=== PATIENT | female | born 1980 | race Caucasian/White ===

== ENCOUNTER 2020-07-08 14:39 | Outpatient (REF) | payer OTHER, SELFPAY ==
--- NOTE | 2020-07-08 14:46 | US_ITS ---
EXAMINATION: US THYROID CLINICAL INFORMATION: Lump of anterior neck. COMPARISON: None TECHNIQUE: Linear transducer maxwell-scale and color Doppler examination with attention to the region of the thyroid. FINDINGS: SIZE: Measurements of the thyroid lobes and nodules are given in sagittal, anteroposterior and transverse dimensions respectively. Right Thyroid Lobe: 5.7 x 1.5 x 1.9 cm, volume 8.7 mL. Parenchyma: The gland echotexture is homogeneous. Thyroid vascularity is increased. Left Thyroid Lobe: 4.7 x 1.5 x 1.7 cm, volume 6.5 mL. Parenchyma: The gland echotexture is homogeneous. Thyroid vascularity is increased. Isthmus: 1.5 cm in maximum AP dimension. RIGHT THYROID LOBE: There is 1 nodule seen. 1. Location: Middle. Size: 0.4 x 0.4 x 0.3 cm. Nodule characteristics: Heterogeneously hypoechoic with smooth margins. No internal calcification. Intranodular flow noted. ISTHMUS: There is 1 nodule seen. 1. Location: Central/left. Size: 3.3 x 1.9 x 3.0 cm. Nodule characteristics: Heterogeneously with smooth margins and hypoechoic rind. No internal calcification. Intranodular flow present. LEFT THYROID LOBE: No nodules. NODES: No lymphadenopathy is seen in the tissue surrounding the thyroid gland. US/US thyroid IMPRESSION: Dominant nodule in the thyroid isthmus. This is appropriate for fine-needle aspiration tissue sampling. Increased thyroid vascularity. Correlate with thyroid function..
== END 2020-07-08 14:40 | disposition home or self-care (01) ==
LOC: HO.HMGCX 14:39
PROVIDERS: PCP Internal Medicine; Visit Provider Internal Medicine
DX: R22.1 Localized swelling, mass and lump, neck (principal)
CPT/HCPCS: 76536

== ENCOUNTER → 2023-05-16 13:37 | Outpatient (BNVA) | payer OTHER, SELFPAY | PROVIDERS: PCP Internal Medicine; Visit Provider Surgery ==

== ENCOUNTER 2023-05-18 08:09 | Outpatient (AMB) | payer OTHER, SELFPAY ==
--- NOTE | 2023-05-18 10:29 | MHC.OFFVISWM ---
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 Allergies shellfish derived Adverse Reaction (Severe, Verified 05/18/23 10:29) Facial Swelling Sulfa (Sulfonamide Antibiotics) Adverse Reaction (Intermediate, Verified 05/18/23 10:29) Itching Medication List - Last Reconciled 05/18/23 by Artur Levy MD candesartan 16 mg PO DAILY hydrochlorothiazide 12.5 mg PO DAILY levothyroxine 150 mcg PO DAILY 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 HPI Details Start time: 10.09am, End time: 11.09am ?I spent 50 minutes speaking with the patient on the phone plus an additional 10 minutes reviewing and updating records for a total of 60 minutes HPI Comments History of Present Illness Details Previous weight loss efforts: Atkins, Keto, Hypnosis, RD Wakes up: 6am, Sleeps: 9pm Breakfast: skips Lunch: 11am-12pm (meat) Dinner: 4-5pm (meat, rice, beans, plantains) Snacks: occasionally ice cream after dinner Exercise: walking occasionally Fluids: Coffee: none, tea: rarely, soda: none, juice: rarely, ETOH: 2-3/month PFSH Medical History (Updated 05/18/23 @ 10:34 by Artur Levy MD) Primary thyroid cancer Hypothyroidism Hypertension Surgical History (Updated 05/18/23 @ 10:35 by Artur Levy MD) H/O total thyroidectomy History of surgical removal of ganglion cyst Hx of colonoscopy Hx of cholecystectomy Hx of section Family History (Updated 05/18/23 @ 08:06 by Noris Gil CMA) Mother Sleep apnea Hypertension Hypothyroid Father Hypertension Social History (Updated 05/18/23 @ 08:07 by Noris Gil CMA) Alcohol intake: current Alcohol intake frequency: holidays/special occasions only Patient Tobacco Use Status: Never used Tobacco Assessment & Plan Assessment & Plan (1) Obesity: Code(s): E66.9 - Obesity, unspecified Plan: 1.? Plan for lap sleeve gastrectomy. If diaphragmatic or ventral hernias are present at time of surgery, these will be repaired laparoscopically as well. Risks and complications were discussed in detail including possible conversion to an open procedure, anastomotic leak, bleeding requiring transfusion, small bowel obstruction, , DVT and pulmonary embolism, cardiac, or pulmonary complications, as moth exterminator complications such as anastomotic ulcer, insufficient weight loss and vitamin deficiencies. I emphasized the importance of close follow-up, adherence to instructions and good communication. 2. Nutritional counseling. Start with 2 ISOPURE INFUSIONS protein shakes (buy at [employer]) shakes (HALF scoop EACH in 8oz water) at 7am-9am and 10am-12pm, 2 Zone Perfect protein bas (Zone Perfect protein bars, buy at [employer], [employer], [employer], or [employer]) at 1pm-3pm and 4pm-6pm, dinner at 7pm (8 forks of protein and 8 forks of salad/vegetables). Meal to include lean meat (beef, fish, pork, turkey, chicken), or macedonian yogurt, or egg whites, or beans with a salad with olive oil and fruits (berries, pears, apples, kiwi). Avoid salt, breads, potatoes, rice, pasta, desserts. 3. Each shake would be drunk slowly, like coffee in a period of 2 hours. 4. Cut each bar in 4 pieces and eat each piece in 30min ?to make each bar last 2 hours. 5. I emphasized the importance of measuring accurately the food portion and measure it when serving the food in plate 6. The meal portions include 8 full-size forks of meat and 8 full-size forks of salad. You always eat the meat portion but you can replace up to 4 forks for salad/vegetables with rice, potatoes or pasta, or a fruit ?if you like. The less you do it the better weight loss will be. 7. One full-size fork is what it can be scooped on the fork without falling aside and not what can be bit with the fork. Use regular forks like those you find in a typical restaurant. 8.? Please send me weight measurements as soon as possible and then once a week. Always include your diet and exercise plan. 9. Start walking outside daily, tracking calories with a goal of 300 calories per day, daily. Goal is to burn 2000 calories per week on exercise, which means either 300 calories daily, or 400 calories 5 days per week, or 500 calories 4 days per week, or 650 calories 3 days per week. 10. Alternatively purchase a stationary bike, elliptical or treadmill at home that can track calories. Let me know if you do so I can give you an exercise plan. 11.?It is important of avoiding and for at least 18 months postoperatively and has been discussed at the infosession. 12. Goal is to lose at least 1.5-2lbs per week 13. Goal to lose 10% of your weight before surgery, which is about 21lbs. Ultimate weight goal: 189lbs before surgery 14. Please follow the diet plan exactly without any change. If you don't like something about the plan or you feel hungry you need to communicate with me so I can help you revise the plan. You should not change the plan yourself. (2) BMI 38.0-38.9,adult: Code(s): Z68.38 - Body mass index [BMI] 38.0-38.9, adult (3) Hypertension: Code(s): I10 - Essential (primary) hypertension (4) Hypothyroidism: Code(s): E03.9 - Hypothyroidism, unspecified Orders: Orders Lipid Panel Today E03.9 - Hypothyroidism, unspecified, E66.9 - Obesity, unspecified, I10 - Essential (primary) hypertension, Z68.38 - Body mass index [BMI] 38.0-38.9, adult Complete Blood Count Auto Diff Today E03.9 - Hypothyroidism, unspecified, E66.9 - Obesity, unspecified, I10 - Essential (primary) hypertension, Z68.38 - Body mass index [BMI] 38.0-38.9, adult Zinc Today E03.9 - Hypothyroidism, unspecified, E66.9 - Obesity, unspecified, I10 - Essential (primary) hypertension, Z68.38 - Body mass index [BMI] 38.0-38.9, adult Vitamin A Today E03.9 - Hypothyroidism, unspecified, E66.9 - Obesity, unspecified, I10 - Essential (primary) hypertension, Z68.38 - Body mass index [BMI] 38.0-38.9, adult C Reactive Protein Today E03.9 - Hypothyroidism, unspecified, E66.9 - Obesity, unspecified, I10 - Essential (primary) hypertension, Z68.38 - Body mass index [BMI] 38.0-38.9, adult Ferritin Today E03.9 - Hypothyroidism, unspecified, E66.9 - Obesity, unspecified, I10 - Essential (primary) hypertension, Z68.38 - Body mass index [BMI] 38.0-38.9, adult FL upper GI w air Today E03.9 - Hypothyroidism, unspecified, E66.9 - Obesity, unspecified, I10 - Essential (primary) hypertension, Z68.38 - Body mass index [BMI] 38.0-38.9, adult Insulin Today E03.9 - Hypothyroidism, unspecified, E66.9 - Obesity, unspecified, I10 - Essential (primary) hypertension, Z68.38 - Body mass index [BMI] 38.0-38.9, adult IRON PROFILE Today E03.9 - Hypothyroidism, unspecified, E66.9 - Obesity, unspecified, I10 - Essential (primary) hypertension, Z68.38 - Body mass index [BMI] 38.0-38.9, adult Vitamin B12 and Folate Today E03.9 - Hypothyroidism, unspecified, E66.9 - Obesity, unspecified, I10 - Essential (primary) hypertension, Z68.38 - Body mass index [BMI] 38.0-38.9, adult Comprehensive Met. Panel Today E03.9 - Hypothyroidism, unspecified, E66.9 - Obesity, unspecified, I10 - Essential (primary) hypertension, Z68.38 - Body mass index [BMI] 38.0-38.9, adult Vitamin B1 Today E03.9 - Hypothyroidism, unspecified, E66.9 - Obesity, unspecified, I10 - Essential (primary) hypertension, Z68.38 - Body mass index [BMI] 38.0-38.9, adult PTHI Today E03.9 - Hypothyroidism, unspecified, E66.9 - Obesity, unspecified, I10 - Essential (primary) hypertension, Z68.38 - Body mass index [BMI] 38.0-38.9, adult TSH reflex Free T4 Today E03.9 - Hypothyroidism, unspecified, E66.9 - Obesity, unspecified, I10 - Essential (primary) hypertension, Z68.38 - Body mass index [BMI] 38.0-38.9, adult H Pylori Breath Test Today E03.9 - Hypothyroidism, unspecified, E66.9 - Obesity, unspecified, I10 - Essential (primary) hypertension, Z68.38 - Body mass index [BMI] 38.0-38.9, adult Vitamin D 25-OH Total Today E03.9 - Hypothyroidism, unspecified, E66.9 - Obesity, unspecified, I10 - Essential (primary) hypertension, Z68.38 - Body mass index [BMI] 38.0-38.9, adult Hemoglobin A1c Today E03.9 - Hypothyroidism, unspecified, E66.9 - Obesity, unspecified, I10 - Essential (primary) hypertension, Z68.38 - Body mass index [BMI] 38.0-38.9, adult US abdomen comp w elastography Today E03.9 - Hypothyroidism, unspecified, E66.9 - Obesity, unspecified, I10 - Essential (primary) hypertension, Z68.38 - Body mass index [BMI] 38.0-38.9, adult XR chest 2V Today E03.9 - Hypothyroidism, unspecified, E66.9 - Obesity, unspecified, I10 - Essential (primary) hypertension, Z68.38 - Body mass index [BMI] 38.0-38.9, adult ECG 12 lead EKG Today E03.9 - Hypothyroidism, unspecified, E66.9 - Obesity, unspecified, I10 - Essential (primary) hypertension, Z68.38 - Body mass index [BMI] 38.0-38.9, adult Referrals Nutrition/Dietitian Referral E03.9 - Hypothyroidism, unspecified, E66.9 - Obesity, unspecified, I10 - Essential (primary) hypertension, Z68.38 - Body mass index [BMI] 38.0-38.9, adult Behavioral Health Referral E03.9 - Hypothyroidism, unspecified, E66.9 - Obesity, unspecified, I10 - Essential (primary) hypertension, Z68.38 - Body mass index [BMI] 38.0-38.9, adult Telehealth Telehealth Location of provider rendering services: practice address Location of patient: address on file Patient Identification confirmed using: Name, : Yes Telehealth method: voice only Patient verbally consented to treatment: Yes Patient verbally consented to billing insurance company: Yes Patient informed of any privacy concerns related to visit: Yes Minutes spent on Phone/Video with Pt.: 60 Coding Level of Care Code Tele New Pt Level 5 (86605) Diagnoses Obesity E66.9 BMI 38.0-38.9,adult Z68.38 Hypertension I10 Hypothyroidism E03.9 Time Spent (min) 60
[2023-05-18 10:42] VITALS: BMI 37.8
== END 2023-05-18 11:10 | disposition home or self-care (01) ==
LOC: HO.HBS 08:09
PROVIDERS: PCP Internal Medicine; Visit Provider Surgery
DX: E66.9 Obesity, unspecified (principal); Z68.38 Body mass index [BMI] 38.0-38.9, adult; I10 Essential (primary) hypertension; E03.9 Hypothyroidism, unspecified
CPT/HCPCS: 99205

== ENCOUNTER → 2023-05-18 08:09 | Outpatient (BNVA) | payer OTHER, SELFPAY | PROVIDERS: PCP Internal Medicine; Visit Provider Surgery ==

== ENCOUNTER 2023-06-14 12:46 | Outpatient (REF) | payer OTHER, SELFPAY ==
--- NOTE | ~2023-06-14 | XR_ITS ---
EXAMINATION: XR CHEST CLINICAL INFORMATION: Obesity unspecified COMPARISON: None TECHNIQUE: 2 views of the chest. FINDINGS: There is no gross pneumothorax. Heart size normal. No pleural effusion. Degenerative changes in the thoracic spine. XR/XR chest 2V IMPRESSION: No focal consolidation to suggest pneumonia.
--- NOTE | 2023-06-14 12:54 | ECG_ITS ---
Test Reason : obesity Blood Pressure : / mmHG Vent. Rate : 074 BPM Atrial Rate : 074 BPM P-R Int : 140 ms QRS Dur : 078 ms QT Int : 402 ms P-R-T Axes : 052 015 035 degrees QTc Int : 446 ms Normal sinus rhythm with sinus arrhythmia Normal ECG No previous ECGs available Referred By: Artur Levy Electronically Signed By:ELIAS DYSON MD
[2023-06-14 13:13] LABS: MANUAL DIFF FLAG NO
[2023-06-14 14:15] LABS: Basophils Percent Auto 0.7 % (0-2); Eosinophils Absolute Auto 0.2 X10*3/uL (0.0-0.4); Eosinophils Percent Auto 3.3 % (0-4); Hematocrit 35.3 % (37.0-47.0); Imm Gran Abs Auto 0.01 X10*3/uL (0.00-0.03); Imm Gran Pct Auto 0.2 % (0.0-0.4); Lymphocytes Absolute Auto 1.7 X10*3/uL (1.2-4.9); Lymphocytes Percent Auto 27.6 % (20-40); Mean Corpuscular Hemoglobin 29.9 pg (27.0-33.0); Mean Platelet Volume 10.9 fL (9.4-12.3); Monocytes Absolute Auto 0.6 X10*3/uL (0.1-1.2); Neutrophils Absolute Auto 3.6 x10*3/uL (2.0-8.3); Neutrophils Percent Auto 59.2 % (45-73); Platelet Count 267 X10*3/uL (160-400); Red Blood Count 4.01 X10*6/uL (4.20-5.50); Red Cell Distribution Width 13.7 % (11.0-16.0); White Blood Count 6.1 X10*3/uL (4.8-10.8)
[2023-06-14 14:34] LABS: Estimated Average Glucose 97 mg/dL
[2023-06-14 15:14] LABS: Alanine Aminotransferase 13 U/L (0-31); Albumin Level 4.1 g/dL (3.5-5.0); Alkaline Phosphatase 50 U/L (39-117); Anion Gap 13 (12-20); Aspartate Amino Transferase 14 U/L (5-31); Bilirubin Total 0.8 mg/dL (0.0-1.0); Blood Urea Nitrogen 11 mg/dL (9-16); C Reactive Protein 0.24 mg/dL (< or = 0.50); Calcium 8.6 mg/dL (8.4-10.2); Carbon Dioxide 23 mmol/L (22-29); Chloride 107 mmol/L (96-108); Cholesterol 132 mg/dL (<200); Estimated Glomerular Filt Rate > 60; Glucose Random 75 mg/dL (60-115); HDL Cholesterol 42 mg/dL (>40); Iron 82 mcg/dL (30-160); LDL Cholesterol Calculated 81 mg/dL (<100); Percent Iron Saturation 35 % (15-50); Potassium 3.7 mmol/L (3.3-5.1); Sodium 139 mmol/L (135-145); Total Iron Binding Capacity 231 mcg/dL (228-428); Triglycerides 47 mg/dL (<150); Unsaturated Iron Binding 149 ug/dL
[2023-06-14 15:33] LABS: Ferritin 97 ng/mL (10-250); Insulin 5 uU/mL (2-29); TSH reflex Free T4 0.01 uIU/mL (0.32-4.0); Vitamin D 25-OH Total 33.5 ng/mL (>30)
[2023-06-14 15:45] LABS: Folate 11.3 ng/mL (> or = 4.0); Vitamin B12 255 pg/mL (200-900)
[2023-06-14 16:16] LABS: Free T4 (Free Thyroxine) 1.15 ng/dL (0.71-1.85)
[2023-06-15 19:33] LABS: Calcium (PTHI) 8.4 mg/dL (8.6-10.2); PTHI 41 pg/mL (16-77)
[2023-06-18 13:09] LABS: Zinc 72 mcg/dL (60-130)
[2023-06-19 15:53] LABS: Vitamin A 27 mcg/dL (38-98)
[2023-06-20 15:53] LABS: Vitamin B1 9 nmol/L (8-30)
== END 2023-06-14 12:47 | disposition home or self-care (01) ==
LOC: HO.XRAY 12:46
PROVIDERS: PCP Nurse Practitioner Acute Care; Visit Provider Surgery
DX: E66.9 Obesity, unspecified (principal); Z68.38 Body mass index [BMI] 38.0-38.9, adult; I10 Essential (primary) hypertension; E03.9 Hypothyroidism, unspecified
CPT/HCPCS: 36415; 71046; 80053; 80061; 82306; 82607; 82728; 82746; 83036; 83525; 83540; 83970; 84425; 84439; 84443; 84590; 84630; 85025; 86140; 93005

== ENCOUNTER 2023-06-19 09:47 | Outpatient (REF) | payer OTHER, SELFPAY ==
[2023-06-22 13:57] LABS: H Pylori Breath Test Negative (Negative)
== END 2023-06-19 09:48 | disposition home or self-care (01) ==
LOC: HO.LNP 09:47
PROVIDERS: Surgery; PCP Nurse Practitioner Acute Care; Visit Provider Physician Assistant
DX: E66.9 Obesity, unspecified (principal); Z68.38 Body mass index [BMI] 38.0-38.9, adult; I10 Essential (primary) hypertension; E03.9 Hypothyroidism, unspecified
CPT/HCPCS: 83013; 99211

== ENCOUNTER 2023-06-20 08:16 | Outpatient (AMB) | payer OTHER, SELFPAY ==
--- NOTE | 2023-06-20 12:07 | MHC.OFFVISWM ---
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 Allergies shellfish derived Adverse Reaction (Severe, Verified 05/18/23 10:29) Facial Swelling Sulfa (Sulfonamide Antibiotics) Adverse Reaction (Intermediate, Verified 05/18/23 10:29) Itching HPI TV Follow Up SWL - 1ST HPI Details Start time: 11.58am, End time: 12.23pm ?I spent 20 minutes speaking with the patient on the phone plus an additional 5 minutes reviewing and updating records for a total of 25 minutes HPI Comments History of Present Illness Details Overall weight loss: 15.7lbs, or 7.46% TBWL Is doing 2 Isopure infusions shakes (1/2 scoop in water), 2 Zone Perfect protein bars and one meal (8 forks of protein and 8 forks of salad or vegetables) Exercise: is doing stationary bike x6/week for 450 calories PFSH Medical History (Updated 06/20/23 @ 12:19 by Artur Levy MD) Primary thyroid cancer Hypothyroidism Hypertension Surgical History (Updated 05/18/23 @ 10:35 by Artur Levy MD) H/O total thyroidectomy History of surgical removal of ganglion cyst Hx of colonoscopy Hx of cholecystectomy Hx of section Family History (Updated 05/18/23 @ 08:06 by Noris Gil CMA) Mother Sleep apnea Hypertension Hypothyroid Father Hypertension Social History (Updated 05/18/23 @ 08:07 by Noris Gil CMA) Alcohol intake: current Alcohol intake frequency: holidays/special occasions only Patient Tobacco Use Status: Never used Tobacco Assessment & Plan Assessment & Plan (1) Obesity: Code(s): E66.9 - Obesity, unspecified Plan: 1. Change nutritional plan to one Isopure Infusion shake with QUARTER scoop in 8oz water, one Isopure Infusion shake with ONE scoop in water, 2 Zone Perfect protein bars and one meal (8 forks of protein and 8 forks of salad or vegetables) 2. Exercise: continue stationary bike x6/week for 450 calories. Goal is to burn at least 2000 calories per week on aerobic exercise. 3. Continue to send me weight measurements weekly on Fridays (2) BMI 35.0-35.9,adult: Code(s): Z68.35 - Body mass index [BMI] 35.0-35.9, adult Medications: New vitamin A palmitate 10,000 units PO DAILY 30 caps 2RF E50.9 - Vitamin A deficiency, unspecified Telehealth Telehealth Location of provider rendering services: practice address Location of patient: address on file Patient Identification confirmed using: Name, : Yes Telehealth method: voice only Patient verbally consented to treatment: Yes Patient verbally consented to billing insurance company: Yes Patient informed of any privacy concerns related to visit: Yes Minutes spent on Phone/Video with Pt.: 25 Coding Level of Care Code Tele Est Pt Level 3 (07053) Diagnoses Obesity E66.9 BMI 35.0-35.9,adult Z68.35 Time Spent (min) 25
[2023-06-20 12:16] VITALS: BMI 35.0
== END 2023-06-20 12:24 | disposition home or self-care (01) ==
LOC: HO.HBS 08:16
PROVIDERS: PCP Nurse Practitioner Acute Care; Visit Provider Surgery
DX: E66.9 Obesity, unspecified (principal); Z68.35 Body mass index [BMI] 35.0-35.9, adult
CPT/HCPCS: 99213

== ENCOUNTER → 2023-06-20 08:16 | Outpatient (BNVA) | payer OTHER, SELFPAY | PROVIDERS: PCP Nurse Practitioner Acute Care; Visit Provider Surgery ==

== ENCOUNTER 2023-06-21 09:00 | Outpatient (AMB) | payer OTHER, SELFPAY ==
--- NOTE | 2023-06-21 09:18 | A.OFFWM_ITS ---
Intake Intake Visit Reasons: VIDEO BH Intake Allergies shellfish derived Adverse Reaction (Severe, Verified 05/18/23 10:29) Facial Swelling Sulfa (Sulfonamide Antibiotics) Adverse Reaction (Intermediate, Verified 05/18/23 10:29) Itching PFSH Medical History (Updated 06/20/23 @ 12:19 by Artur Levy MD) Primary thyroid cancer Hypothyroidism Hypertension Surgical History (Updated 05/18/23 @ 10:35 by Artur Levy MD) H/O total thyroidectomy History of surgical removal of ganglion cyst Hx of colonoscopy Hx of cholecystectomy Hx of section Family History (Updated 05/18/23 @ 08:06 by Noris Gil CMA) Mother Sleep apnea Hypertension Hypothyroid Father Hypertension Social History (Updated 05/18/23 @ 08:07 by Noris Gil CMA) Alcohol intake: current Alcohol intake frequency: holidays/special occasions only Patient Tobacco Use Status: Never used Tobacco Behavioral Health Assessment Weight Management Therapy Therapy Notes Details Pt is a 43 years old, female, who presents for initial behavioral health assessment as part of surgical weight-loss program. PT denied any history of mental health treatment and or past hospitalization/crisis for behavioral health. Denies any safety concerns around SI and/or self-other harm, also there is no history of substance use reported. There is also no evidence for stress/emotional-eating, and scores from BES suggest minimal risk for binge eating behavior. PHQ- scores also showed no active symptoms/concerns with depression. Mental status exam is withing normal limits, suggesting person's functioning is not impaired. At this time patient is cleared from the behavioral health standpoint. Presenting Concerns Referral Source WMP provider. Pt sees Dr. Lopez Reason for referral Completion of behavioral health assessment as part of process for weight-loss surgery. Precipitating Event Obesity, High blood pressure, Thyroid issues. Living Situation Current Living Situation Own At risk of losing current housing? No Satisfied with current living situation? Yes Comments Pt lives with and 3 children. (5, 10 and 12). Food/Weight/Diet Expectations of change Pt could like to be at 125Lbs. History/Relationship with food Pt reports her overweight is related to her cultural background, at times using food as reward or with a more emotional association where food is part of celebrations or for comfort. Example of meal schedule before starting program Breakfast: skip or eggs Lunch: skip. or a let lunch then would skip dinner. Dinner: Meat/salad/carbs. Night snack: something sweet. History/Relationship with weight Normal weight as a child. In the last 5 years Highest weight: 225Lbs -couple years ago. Lowest weight: 140Lbs. History/Relationship with dieting Atkins, keto, Low carb-Mediterranean, Di et/exercise. Binge Eating Do you frequently eat large amounts of food in short periods of time, not feeling physically hungry? No Do you feel out of control when you eat a large amount of food in a short period of time? No Do you eat large amounts of food rapidly and typically alone? No Night Eating Do you wake up at least once during the night to eat? No If you wake up in the night, do you find that it is necessary to eat something in order to fall back asleep? No Do you have little or no appetite in the morning and feel very hungry in the evening, often overeating between dinner and when you go to bed? No Social History Family history and relationship Pt is for 15 years, they have 3 ch ildren. Parents alive and living close to her. has 1 brother who lives in [place]. 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 (5, 10 and 12). Developmental history and status None reported. Currently WNL. Social support Parents, . Community support Some friends, PCP. Nondenominational/Spirituality None. Defines as more spiritual than uatsdin. Cultural/Ethnic information Pt was born and raised in [place]. Living in the [place] for about 25 years. Legal Involvement and History Current or historical involvement with the legal system? None reported. Education Highest grade completed Master degree in School administration. Preferred learning style Learn by doing and Visual Currently enrolled in educational program? No Interested in further educational program? 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 Employment Employment Status Other (Seasonal work at [employer] at the [employer] department. ) Wants help to find employment? No Meaningful activities Travel, workout, family activities, get her hair/nails done. Financial Situation Describe current financial situation Comfortable Financial assistance? None Service Service? No Mental Health and Addiction Treatment Current/Past substance abuse? No Current/Past addictive behavior concerns? No Psychiatric history Never in MH treatment. Desnies ever deal with SI/SA and/ot other safety concerns around Self0-harm/other-harm. Medical and Physical Health Summary Additional Medical History not covered in history None reported. Sexual History concerns None reported Physical exam in the last year? Yes Pain Screening Current pain? No Pain in the last few months? No Medications Is the patient compliant with medications? Yes Does the patient have Danielle Guardian in place? Not applicable Does the patient use complimentary health approaches? No Trauma/Abuse History History of trauma? No Questionnaires PHQ-9 Over the last 2 weeks, how often have you been bothered by any of the following problems? 1. Little interest or pleasure in doing things: not at all 2. Feeling down, depressed, or hopeless: not at all 3. Trouble falling or staying asleep, or sleeping too much: several days 4. Feeling tired or having little energy: several days 5. Poor appetite or overeating: not at all 6. Feeling bad about yourself - or that you are a failure or have let yourself or your family down: not at all 7. Trouble concentrating on things, such as reading the newspaper or watching television: not at all 8. Moving or speaking so slowly that other people could have noticed. Or the opposite - being so fidgety or restless that you have been moving around a lot more than usual: not at all 9. Thoughts that you would be better off or of hurting yourself in some way: not at all Total score: 2 Depression Screening Interpretation: Negative Depression Screening Done: Yes Source: Developed by Drs. Geo Holman, Sapna Duarte, Byron March and colleagues, with an educational julito from [employer]. Binge Eating Scale Group 1 A. I don't feel self-conscious about my wt. or body size when I'm with others. B. I feel concerned about how I look to others, but it normally does not make me fell disappointed with myself C. I do get self-conscious about my appearance and wt. which makes me feel disappointed in myself. D. I feel very self-conscious about my wt. and frequently I feel intense shame and disgust for myself. I try to avoid social contacts because of my self-consciousness. Response Group 1: C Group 2 A. I don't have any difficulty eating slowly in the proper manner. B. Although I seem to gobble down foods, I don't end up feeling stuffed because of eating to much. C. At times, I tend to eat quickly and then, I feel uncomfortably full afte rwards. D. I have the habit of bolting down my food, without really chewing it. When this happens I usually feel uncomfortably stuffed because I've eaten to much. Response Group 2: C Group 3 A. I feel capable to control my eating urges when I want to. B. I feel like I have failed to control my eating more than the average person. C. I feel utterly helpless when it comes to feeling in control of my eating urges. D. Because I feel so helpless about controlling my eating I have become very desperate about trying to get control. Response Group 3: B Group 4 A. I don't have the habit of eating when I'm bored. B. I sometimes eat when I'm bored, but often I'm able to get busy and get my mind off food. C. I have a regular habit of eating when I'm bored, but occasionally, I can use some other activity to get my mind off eating. D. I have a strong habit of eating when I'm bored. Nothing seems to help me breath the habit. Response Group 4: C Group 5 A. I'm usually physically hungry when I eat something. B. Occasionally, I eat something on impulse even though I really am not hungry. C. I have the regular habit of eating foods, that I might not really enjoy, to satisfy a hungry feeling even though physically, I don't need the food. D. Although I'm not physically hungry, I get a hungry feeling in my mouth that only seems to be satisfied when I eat a food, like sandwich, that fills my mouth. Sometimes, when I eat the food to satisfy my mouth hunger, I then spit the food out so I won't gain weight. Response Group 5: B Group 6 A. I don't feel any guilt or self-hate after I overeat. B. After I overeat, occasionally I feel guilt or self-hate. C. Almost all the time I experience strong guilt or self-hate after I overeat. Response Group 6: B Group 7 A. I don't lose total control of my eating when dieting even after periods when I overeat. B. Sometimes when I eat a forbidden food on a diet, I feel like I blew it and eat even more. C. Frequently, I have the habit of saying to myself, I've blown it now, why not go all the way, when I overeat on a diet. When that happens I eat more. D. I have a regular habit of starting a strict diets for myself but I break the diets by going on an eating binge. My life seems to be either a feast or famine. Response Group 7: B Group 8 A. I rarely eat so much food that I feel uncomfortably stuffed afterwards. B. Usually about once a month, I each such a quantity of food, I end up feeling very stuffed. C. I have regular periods during the month when I eat large amounts of food, either at mealtime or at snacks. D. I eat so much food that I regularly feel quite uncomfortable after eating and sometimes a bit nauseous. Response Group 8: A Group 9 A. My level of calorie intake does not go up very high or go down very low on a regular basis. B. Sometimes after I overeat, I will try to reduce my caloric intake to almost nothing to compensate for the excess calories I've eaten. C. I have a regular habit of overeating during the night. It seems that my routine is not to be hungry in the morning but overeat in the evening. D. In my adult years, I have had week-long periods where I practically starve myself. This follows periods when I overeat. It seems I live a life of either feast or famine. Response Group 9: B Group 10 A. I usually am able to stop eating when I want to. I know when enough is enough. B. Every so often, I experience a compulsion to eat which I can't seem to control. C. Frequently, I experience strong urges to eat which I seem unable to control, but at other times I can control my eating urges. D. I feel incapable of controlling urges to eat. I have a fear of not being able to stop eating voluntarily. Response Group 10: A Group 11 A. I don't have any problem stopping eating when I feel full. B. I usually can stop eating when I feel full but occasionally overeat leaving me feeling uncomfortably stuffed. C. I have a problem stopping eating once I start and usually I feel uncomfortably stuffed after I eat a meal. D. Because I have a problem not being able to stop eating when I want, I sometimes have to induce vomiting to relieve my stuffed feeling. Response Group 11: B Group 12 A. I seem to eat just as much when I'm with others, Family social gatherings as when I'm by myself. B. Sometimes, when I'm with other persons, I don't eat as much as I want to eat because I'm self-conscious about my eating. C. Frequently, I eat only a small amount of food when others are present, because I'm very embarrassed about my eating. D. I feel so ashamed about overeating that I pick times to overeat when I know no one will see me. I feel like a closet eater. Response Group 12: A Group 13 A. I eat three meals a day with only an occasional between meal snack. B. I eat 3 meals a day, but I also normally snack between meals. C. When I am snacking heavily, I get in the habit of skipping regular meals. D. There are regular periods when I seem to be continually eating, with no planned meals. Response Group 13: A Group 14 A. I don't think much about trying to control unwanted eating urges. B. At least some of the time, I feel my thoughts are pre-occupied with trying to control my eating urges. C. I feel that frequently I spend much time thinking about how much I ate or about trying not to eat anymore. D. It seems to me that most of my waking hours are pre-occupied by thoughts about eating or not eating. I feel like I'm constantly struggling not to eat. Response Group 14: B Group 15 A. I don't think about food a great deal. B. I have strong craving for food but they last only for brief periods of time. C. I have days when I can't seem to think about anything else but food. D. Most of my days seem to be pre-occupied with thoughts about food. I feel like I live to eat. Response Group 15: B Group 16 A. I usually know whether or not I'm physically hungry. I take the right portion of food to satisfy me. B. Occasionally, I feel uncertain about knowing whether or not I'm physically hungry. A these times it's hard to know how much food I should take to satisfy me. C. Even though I might know how many calories I should eat, I don't have any idea what is a normal amount of food for me. Response Group 16: B Binge Eating Score: 15 Score less than 17 Minimal Risk Score between 18-26 Moderate Risk Score between 27-46 High Risk Assessment & Plan Assessment & Plan (1) Adjustment disorder: Code(s): F43.20 - Adjustment disorder, unspecified Qualifiers: Adjustment disorder type: unspecified type Qualified Code(s): F43.20 - Adjustment disorder, unspecified Plan After completing the assessment and comparing scores from Binge eating scale and PHQ9, at this time, this science writer has no concerns about patient's mental status. Client is cleared and there is no need for follow up before surgery. Clinician has advised client about have a post-op appointment and of available resources if ever in need to access additional support and has encourage client to participate in post-op groups and program workshops. Telehealth Telehealth Location of provider rendering services: practice address Location of patient: address on file Patient Identification confirmed using: Name, : Yes Telehealth method: video Patient verbally consented to treatment: Yes Patient verbally consented to billing insurance company: Yes Patient informed of any privacy concerns related to visit: Yes Minutes spent on Phone/Video with Pt.: 60 Coding Level of Care Code New Pt Tele Psy Diag Rhina ([id number]) Patient Type New Diagnoses Adjustment disorder, unspecified type F43.20 Adjustment disorder type: unspecified type Time Spent (min) 60
== END 2023-06-21 10:00 ==
LOC: HO.HBST 09:59
PROVIDERS: PCP Nurse Practitioner Acute Care; Visit Provider Counselor Mental Health
DX: F43.20 Adjustment disorder, unspecified (principal)
CPT/HCPCS: 90791

== ENCOUNTER → 2023-06-21 09:00 | Outpatient (BNVA) | payer OTHER, SELFPAY | PROVIDERS: PCP Nurse Practitioner Acute Care; Visit Provider Counselor Mental Health ==

== ENCOUNTER 2023-06-22 09:20 | Outpatient (REF) | payer OTHER, SELFPAY ==
--- NOTE | ~2023-06-22 | US_ITS ---
EXAMINATION: US COMPLETE ABDOMEN WITH LIVER ELASTOGRAPHY CLINICAL INFORMATION: Obesity. COMPARISON: None available. TECHNIQUE: Real-time imaging of the abdominal viscera. Noninvasive ultrasound liver fibrosis assessment is performed using Shelli ElastPQ point quantification shear wave elastography (2D-SWE) with a C5-2 MHz transducer. Multiple elastography samples are obtained. FINDINGS: PANCREAS: Normal. ABDOMINAL AORTA: The proximal, middle, and distal aortic segments are normal in caliber. INFERIOR VENA CAVA: Visualized portions are normal. LIVER: Normal. The liver demonstrates normal size, contour and echogenicity. No focal lesion or intrahepatic biliary duct dilatation. The right lobe measures 14 cm in length. The left lobe measures 11 cm in length. Portal flow is normal/hepatopedal. Shear wave liver elastography median stiffness is 2.3 m/s (reference: normal median stiffness is 1.3 m/s or less). IQR/median stiffness to assess sampling precision is 0.15 (reference: good quality data set is IQR/median stiffness of 0.15 or less). GALLBLADDER: Normal. The gallbladder is physiologically distended without evidence of stones, sludge, polyps, wall thickening or pericholecystic fluid. COMMON BILE DUCT: Normal in caliber measuring 0.3 cm in diameter. RIGHT KIDNEY: Normal. No hydronephrosis. No renal calculi or focal parenchymal lesions. The kidney measures 12 cm in maximum dimension. LEFT KIDNEY: Normal. No hydronephrosis. No renal calculi or focal parenchymal lesions. The kidney measures 12 cm in maximum dimension. SPLEEN: Normal. The spleen measures 9 cm in maximum dimension. FREE FLUID: None. US/US abdomen comp w elastography IMPRESSION: 1. Impression: Morphologically normal appearing liver. 2. Liver Elastography: Adequate liver sampling. Increased liver stiffness. REFERENCE: Society of Radiologists in Ultrasound Liver Stiffness Thresholds (2020): LIVER STIFFNESS THRESHOLDS: *Liver Stiffness equal or less than 1.3 m/s: High probability of being normal. *Liver Stiffness less than 1.7 m/s: In the absence of other known clinical signs, rules out compensated advanced chronic liver disease. *Liver Stiffness 1.7-2.1 m/s: Suggestive of compensated advanced chronic liver disease but need further test for confirmation. *Liver Stiffness over 2.1 m/s: Rules in compensated advanced chronic liver disease. *Liver Stiffness over 2.4 m/s: Suggestive of clinically significant portal hypertension. QUALITY OF DATA SET: *IQR/Median value equal or less than 0.15 implies a quality data set. *IQR/Median value over 0.15 implies a poor quality data set. SIGNIFICANT CHANGE FROM PRIOR EXAM: Significant change if liver stiffness measurement is 10% or greater from prior exam. OTHER CONSIDERATIONS: The stage of liver fibrosis may be overestimated in the setting of acute hepatitis, liver inflammation, elevated liver function tests, hepatic vascular congestion, obstructive cholestasis, non-fasting state, and infiltrative diseases such as amyloidosis and lymphoma. In some patients with NAFLD, the liver stiffness thresholds for compensated advanced chronic liver disease may be lower. In causes other than viral hepatitis and NAFLD, liver stiffness thresholds are not well established.
== END 2023-06-22 09:21 | disposition home or self-care (01) ==
LOC: HO.US 09:20
PROVIDERS: PCP Nurse Practitioner Acute Care; Visit Provider Surgery
DX: E66.9 Obesity, unspecified (principal); Z68.38 Body mass index [BMI] 38.0-38.9, adult; I10 Essential (primary) hypertension; E03.9 Hypothyroidism, unspecified
CPT/HCPCS: 76705; 76981; 97802

== ENCOUNTER 2023-08-06 07:39 | Outpatient (REF) | payer OTHER, SELFPAY ==
--- NOTE | ~2023-08-06 | FL_ITS ---
EXAMINATION: XR FLUOROSCOPY UPPER GI WITH AIR CLINICAL INFORMATION: Preop evaluation prior to bariatric surgery COMPARISON: None TECHNIQUE: Fluoroscopic air contrast upper GI examination was performed utilizing standard techniques with thin and thick barium and effervescent granules. Numerous spot images were obtained. FINDINGS: Surgical clips are present in the neck consistent with prior thyroidectomy. Dual and single contrast images of the esophagus demonstrate normal caliber, contour, and mucosal pattern. No evidence of stricture, mass, or ulcerations identified. Esophageal peristalsis was normal. No evidence of hiatus hernia identified. No significant gastroesophageal reflux was seen during the course of the examination and on reflux views. Dual contrast and single contrast images of the stomach demonstrated normal contour and mucosal pattern without evidence of mass, ulceration, or other abnormality. Contrast freely passed into the gastric antrum and duodenal bulb without delay. Single and air-contrast images of the duodenal bulb demonstrate no abnormality. The duodenal sweep has a normal appearance, course, and mucosal fold appearance. The imaged proximal jejunum has a normal fold pattern and caliber. FLUOROSCOPY TIME: 3 minutes 11 seconds Number of Spot Images: 9 Number of Cine: 7 DOSE AREA PRODUCT: [id number] uGy-m2 (microgray-meter squared) FL/FL upper GI w air IMPRESSION: 1. Status post thyroidectomy 2. Unremarkable examination This procedure was performed by Igor Gerber PA-C, and supervised by Dr. Morrison
== END 2023-08-06 07:40 | disposition home or self-care (01) ==
LOC: HO.XRAY 07:39
PROVIDERS: PCP Nurse Practitioner Acute Care; Visit Provider Surgery
DX: E66.9 Obesity, unspecified (principal); Z68.38 Body mass index [BMI] 38.0-38.9, adult; I10 Essential (primary) hypertension; E03.9 Hypothyroidism, unspecified
CPT/HCPCS: 74246

== ENCOUNTER → 2023-08-06 07:40 | Outpatient (BNV) | payer OTHER, SELFPAY | PROVIDERS: PCP Nurse Practitioner Acute Care; Visit Provider Radiology Diagnostic Radiology | DX: Z01.818 Encounter for other preprocedural examination (principal); E66.9 Obesity, unspecified | CPT/HCPCS: 74246 ==

== ENCOUNTER 2023-08-06 07:58 | Outpatient (AMB) | payer OTHER, SELFPAY ==
--- NOTE | 2023-08-06 09:14 | A.OFFVIS_ITS ---
Intake VS Expanded 08/06/23 09:26 Height 5 ft 2.5 in Weight 192 lb 5 oz BMI 34.6 Body Fat % 45 Body Fat Mass 86.6 Fat Free Mass 105.7 Visceral Fat Rating 17 Body Water % 37.6 Body Water Mass 72.3 Basal Metabolic Rate/Score 1,569 Intake Visit Reasons: TV Follow Up SWL Allergies shellfish derived Adverse Reaction (Severe, Verified 05/18/23 10:29) Facial Swelling Sulfa (Sulfonamide Antibiotics) Adverse Reaction (Intermediate, Verified 05/18/23 10:29) Itching HPI TV Follow Up SWL HPI Details Start time: 9.10am, End time: 9.30am ?I spent 15 minutes speaking with the patient on the phone plus an additional 5 minutes reviewing and updating records for a total of 20 minutes HPI Comments History of Present Illness Details Overall weight loss: 17.9lbs, or 8.51% TBWL Is doing 2 Isopure Infusions protein shakes (1/4 scoop in water), 2 Zone Perfect protein bars and a meal (8 forks of protein and 8 forks of vegetables) Exercise: is doing the bike for 400-450 calories, 6 days per week PFSH Medical History (Updated 08/06/23 @ 09:28 by Artur Levy MD) Primary thyroid cancer Hypothyroidism Hypertension Surgical History (Updated 05/18/23 @ 10:35 by Artur Levy MD) H/O total thyroidectomy History of surgical removal of ganglion cyst Hx of colonoscopy Hx of cholecystectomy Hx of section Family History (Updated 05/18/23 @ 08:06 by Noris Gil CMA) Mother Sleep apnea Hypertension Hypothyroid Father Hypertension Social History (Updated 05/18/23 @ 08:07 by Noris Gil CMA) Alcohol intake: current Alcohol intake frequency: holidays/special occasions only Patient Tobacco Use Status: Never used Tobacco Assessment & Plan Assessment & Plan (1) Obesity: Code(s): E66.9 - Obesity, unspecified Qualifiers: Obesity type: due to excess calories Serious obesity comorbidity presence: with serious comorbidity Body mass index: BMI 35.0-35.9 Plan: 1. Plan for lap sleeve gastrectomy including upper GI endoscopy. All tests has been completed and reviewed and the patient is cleared for the surgery. ?If diaphragmatic or ventral hernias are present at time of surgery, these will be repaired laparoscopically as well. Risks and complications were discussed in detail including possible conversion to an open procedure, anastomotic leak, bleeding requiring transfusion, small bowel obstruction, , DVT and pulmonary embolism, cardiac, or pulmonary complications, as shelter complications such as anastomotic ulcer, insufficient weight loss and vitamin deficiencies. I emphasized the importance of close follow-up, adherence to instructions and good communication. So far she has proven to be an excellent communicator and very compliant with all our directions accomplishing a great weight loss. I believe that she is an excellent candidate and she is ready. 2. Continue same nutritional plan of 2 Isopure Infusions protein shakes (1/4 scoop in water), 2 Zone Perfect protein bars and a meal (8 forks of protein and 8 forks of vegetables) 3. Exercise: continue the bike for 400-450 calories, 6 days per week 4. Continue to send measurements weekly on Mondays Telehealth Telehealth Location of provider rendering services: practice address Location of patient: address on file Patient Identification confirmed using: Name, : Yes Telehealth method: voice only Patient verbally consented to treatment: Yes Patient verbally consented to billing insurance company: Yes Patient informed of any privacy concerns related to visit: Yes Minutes spent on Phone/Video with Pt.: 20 Coding Level of Care Code Tele Est Pt Level 3 (16854) Diagnoses Obesity E66.9 Obesity type: due to excess calories Serious obesity comorbidity presence: with serious comorbidity Body mass index: BMI 35.0-35.9 Time Spent (min) 20
[2023-08-06 09:26] VITALS: BMI 34.6
== END 2023-08-06 09:30 | disposition home or self-care (01) ==
LOC: HO.HBS 07:58
PROVIDERS: PCP Nurse Practitioner Acute Care; Visit Provider Surgery
DX: E66.9 Obesity, unspecified (principal)
CPT/HCPCS: 99213

== ENCOUNTER 2023-08-11 10:05 | Outpatient (REF) | payer OTHER, SELFPAY ==
[2023-08-11 10:15] LABS: MANUAL DIFF FLAG NO
[2023-08-11 10:27] LABS: Basophils Absolute Auto 0.1 X10*3/uL (0.0-0.2); Basophils Percent Auto 0.8 % (0-2); Eosinophils Absolute Auto 0.2 X10*3/uL (0.0-0.4); Eosinophils Percent Auto 2.9 % (0-4); Hematocrit 37.3 % (37.0-47.0); Hemoglobin 12.3 g/dl (12.0-16.0); Imm Gran Abs Auto 0.02 X10*3/uL (0.00-0.03); Imm Gran Pct Auto 0.3 % (0.0-0.4); Lymphocytes Absolute Auto 1.9 X10*3/uL (1.2-4.9); Lymphocytes Percent Auto 29.7 % (20-40); Mean Corpuscular Hemoglobin 29.1 pg (27.0-33.0); Mean Corpuscular Volume 88.4 fL (80.0-98.0); Mean Platelet Volume 10.5 fL (9.4-12.3); Monocytes Absolute Auto 0.6 X10*3/uL (0.1-1.2); Monocytes Percent Auto 8.7 % (2-11); Neutrophils Absolute Auto 3.6 x10*3/uL (2.0-8.3); Neutrophils Percent Auto 57.6 % (45-73); Platelet Count 252 X10*3/uL (160-400); Red Blood Count 4.22 X10*6/uL (4.20-5.50); White Blood Count 6.3 X10*3/uL (4.8-10.8)
[2023-08-11 10:39] LABS: Estimated Average Glucose 97 mg/dL
[2023-08-11 10:54] LABS: Prothrombin Time 12.4 SEC (11.1-13.3)
[2023-08-11 10:57] LABS: Partial Thromboplastin Time 38.6 SEC (26.0-36.4)
[2023-08-11 11:04] LABS: Alanine Aminotransferase 15 U/L (0-31); Albumin Level 4.2 g/dL (3.5-5.0); Alkaline Phosphatase 57 U/L (39-117); Anion Gap 11 (12-20); Aspartate Amino Transferase 18 U/L (5-31); Bilirubin Total 0.6 mg/dL (0.0-1.0); Blood Urea Nitrogen 9 mg/dL (9-16); C Reactive Protein 0.21 mg/dL (< or = 0.50); Calcium 8.8 mg/dL (8.4-10.2); Carbon Dioxide 26 mmol/L (22-29); Chloride 106 mmol/L (96-108); Cholesterol 166 mg/dL (<200); Estimated Glomerular Filt Rate > 60; Glucose Random 87 mg/dL (60-115); HDL Cholesterol 48 mg/dL (>40); LDL Cholesterol Calculated 108 mg/dL (<100); Sodium 139 mmol/L (135-145); Total Protein 7.1 g/dL (6.5-8.0); Triglycerides 51 mg/dL (<150)
[2023-08-11 11:21] LABS: Insulin 3 uU/mL (2-29); TSH reflex Free T4 0.04 uIU/mL (0.32-4.0); Vitamin D 25-OH Total 31.1 ng/mL (>30)
[2023-08-11 12:00] LABS: Free T4 (Free Thyroxine) 1.32 ng/dL (0.71-1.85)
== END 2023-08-11 10:06 | disposition home or self-care (01) ==
LOC: HO.LAB 10:05
PROVIDERS: Visit Provider Surgery
DX: E03.9 Hypothyroidism, unspecified (principal); E66.9 Obesity, unspecified; I10 Essential (primary) hypertension; E55.9 Vitamin D deficiency, unspecified
CPT/HCPCS: 36415; 80053; 80061; 82306; 83036; 83525; 84439; 84443; 85025; 85610; 85730; 86140

== ENCOUNTER 2023-08-14 10:09 | Day surgery (SDC) | payer OTHER, SELFPAY ==
[2023-08-14] VITALS (11 sets, daily range): BP systolic 110–140; BP diastolic 59–80; PULSE 68–98; RESP 16–21; TEMP 36.1–36.6; O2SAT 97–100; BMI 34.6; BMI 34.2
--- NOTE | 2023-08-14 09:31 | HO.ANESPROP2 ---
HPI - Anesthesia Eval Consult details Narrative: for gastric sleeve PMFSH Active Problems Active Problems: All Active Problems (Updated 08/10/23 @ 17:08 by Artur Levy MD) Vitamin D deficiency (Acute) BMI 35.0-35.9,adult (Acute) Vitamin A deficiency (Acute) Vitamin B12 deficiency (Acute) Hypothyroidism (Acute) Hypertension (Acute) BMI 38.0-38.9,adult (Acute) Obesity (Acute) Past Medical History Medical History Primary thyroid cancer Hypothyroidism Hypertension Family History Family History Mother Sleep apnea Hypertension Hypothyroid Father Hypertension Family history of problems with anesthesia: No Surgical History Surgical History H/O total thyroidectomy History of surgical removal of ganglion cyst Hx of colonoscopy Hx of cholecystectomy Hx of section History of Problems with Anesthesia: No Social History Social History Alcohol intake: current Alcohol intake frequency: holidays/special occasions only Patient Tobacco Use Status: Never used Tobacco Meds Allergies Allergy/AdvReac Type Severity Reaction Status Date / Time shellfish derived AdvReac Severe Facial Verified 05/18/23 10:29 Swelling Sulfa (Sulfonamide AdvReac Intermediate Itching Verified 05/18/23 10:29 Antibiotics) Home Medications Medication Instructions Recorded Confirmed Last Taken Type candesartan 16 mg tablet 16 mg PO DAILY 05/16/23 05/18/23 Unknown History hydrochlorothiazide 12.5 mg capsule 12.5 mg PO DAILY 05/16/23 05/18/23 Unknown History levothyroxine 150 mcg capsule 150 mcg PO DAILY 05/16/23 05/18/23 Unknown History Exam Pertinent Lab Results Pertinent Lab Results: Laboratory Tests 08/11/23 10:12 Blood Type A Positive Antibody Screen NEGATIVE Airway Mallampati Class: II TM Dist: >3cm Neck ROM: Full Heart: rrr Lungs: cta Assessment and Plan Assessment Anesthesia Assessment: Anesthesia Plan Discussed Final Anesthetic Review Family History of Problems with Anesthesia: No History of Problems with Anesthesia: No NPO: Yes ASA Class: II Final Preanesthetic Review: No Changes in Pt Med Stat, Meds/Allgs Chart Reviewed, Consent Obtained/Reviewed and Anes Risks/Benef Reviewed Patient Risk: Intermediate Procedure Risk: Intermediate Anesthetic Plan Anesthetic Plan: GA Disposition: Standard PACU
--- NOTE | 2023-08-14 09:37 | P.BOP_ITS ---
Brief Operative Note Date of Service: 08/14/23 Pre-op diagnosis: Severe obesity with comorbidities (see below) Post-op diagnosis: same (& abdominal adhesions) Procedure: INITIAL PATIENT BMI ON PRESENTATION AT OUR OFFICE: 38.5 kg/m2 LAST BMI BEFORE SURGERY: 35.2 kg/m2 COMORBIDITIES: hypertension, hypothyroidism, history of thyroid cancer, liver fibrosis ?The patient presented to the Weight Management Program with significant obesity that was negatively impacting the patient's comorbidities as listed above.? The program is a phased program with a special focus on preoperative medical weight management to promote substantial weight loss and prepare the patients for the second phase of the program: bariatric surgery. The patient participated in an intensive weekly lifestyle ?intervention and exercise program during which the patient ?has lost between the initial office visit and the last preoperative visit 19.1 lbs, or 9.08% of initial actual body weight. It was deemed appropriate for the patient to now have bariatric surgery. In light of the current Covid-19 pandemic and the well documented strong association of obesity and increased risk of worse outcomes if infected with Covid-19 (REFERENCES: https://pubmed.ncbi.nlm.nih.gov/57291374/ ,? https://pubmed.ncbi.nlm.nih.gov/06106734/ ), any delay in undergoing bariatric surgery may lead to the patient's worsening health condition and increased?risk of more severe Covid-19 disease if infected. In addition a recent?study from [facility] published in [employer] on 08/15/2021 ([email or web address]) found that, among patients with obesity, substantial weight loss achieved with surgery was associated with improved outcomes of COVID-19 infection. The findings suggest that obesity can be a modifiable risk factor for the severity of COVID-19 infection. In addition, the patient met the BMI-criteria for bariatric surgery based on the BMI on initial presentation. The patient should not be penalized for achieving such weight loss because ?it is not sustainable long-term without surgical intervention and it was achieved in preparation for bariatric surgery ?under my direction and based on my published research ([email or web address]).[email or web address] and? https://www.soard.org/article/C9131-8058(81)86630-X/pdf ) ?that a 10% preoperative weight loss improves long-term weight loss after surgery and reduces perioperative complications.? Insurance carriers such as [facility] have endorsed my recommendations ?and have included in their policies criteria to include a 10% preoperative weight loss requirement. PROCEDURE: Esophago-gastroscopy, laparoscopic lysis of adhesions, laparoscopic sleeve gastrectomy and laparoscopic gastropexy INDICATIONS: This is a 43 year-old female who was electively scheduled for laparoscopic, possibly open sleeve gastrectomy. The risks and complications of the procedure were discussed with the patient in advance, particularly the possibility of ; pulmonary embolism; staple line leak; bleeding; GERD; cardiac, pulmonary, or renal complications; as well as long-term problems such as insufficient weight loss, vitamin deficiency, strictures, or ulcers. The patient understood all the risks, and was in agreement to proceed with surgery. DESCRIPTION OF PROCEDURE: After informed consent was obtained from the patient, the patient was given preoperative antibiotics, and was transferred to the operating room. After successful induction of general anesthesia, pneumatic compression devices were placed on both lower extremities. An upper endoscopy was performed next. The oropharynx and esophagus appeared to be within normal limits. There was a diaphragmatic hernia present of moderate size consistent with the findings of the preoperative upper GI. The stomach was entered. Then after all fluid and air were suctioned and the stomach was fully decompressed, the scope was withdrawn and secured in the mid esophagus. The patient was then prepped and draped in the usual sterile manner, and abdominal access was established at the right upper quadrant with the Adele technique. A 12 mm blunt port was inserted, and the abdomen was insufflated with CO2 to a pressure of 15 mmHg. Under direct visualization, additional ports were placed, specifically two 5 mm Versi-step ports to the left upper quadrant, and a 5 mm Versi-Step port to the right upper quadrant. 1% lidocaine plain was used to infiltrate all port sites as well as all fascia defects. Using the EndoClose suture passer device, I placed a #1 Polysorb tie across the falciform ligament in order to retract it up against the abdominal wall and prevent injury of the ligament with our instruments during the procedure. There were adhesions in the abdomen involving the omentum and the left anterior abdominal wall. Those were lysed completely with the ultrasonic device. Following that, the patient was placed in a steep reverse Trendelenburg position. An additional 5 mm port was placed to the right flank for the Mediflex retractor that was used to retract the left lobe of the liver. The gastro-esophageal fat pad was opened with the ultrasonic device (Thunderbeat, Olympus) and the anterior esophagus and hiatus were exposed. The angle of His was opened with the ultrasonic device the fundus of the stomach from any diaphragmatic and splenic attachments. I then opened the gastrocolic ligament between the transverse colon and the greater curvature of the stomach with the ultrasonic device to enter the lesser sac and facilitate the ligation of the short gastric vessels. I started at a mid-point along the greater curvature and using the Thunderbeat, all short gastric vessels were divided all the way to the angle of His until the left douglas was completely dissected at its entirety. I then divided the gastro-colic ligament distally to a distance of about 3-4 cm proximal to the pylorus. There were extensive congenital adhesions between the pancreas and posterior gastric wall. Those were lysed completely with the ultrasonic device. Adhesiolysis took approximately 45 min to complete. The stomach was then divided transversely with one Endo GAGANDEEP-45 purple and four GAGANDEEP-60 articulating purple loads using the SIGNIA stapler and loads. Every effort was made that the gastric sleeve had a tubular shape and an even caliber throughout. Once the sleeve resection was completed, the staple line of the gastric sleeve was reinforced with Hemoclips. The resected stomach was retrieved without difficulty from the Adele port. A gastropexy was then performed in order to prevent postoperative GERD and partial gastric volvulus. Several interrupted 2.0 Surgidac sutures were placed between the sleeve's staple line and the previously divided greater omentum and gastro-colic ligament using the Endo-Stitch device. ?An upper endoscopy was performed. There was no narrowing at the GE junction. Th e scope was easily advanced all the way to the pylorus which was clearly visualized. There was no narrowing anywhere and the sleeve's caliber was even throughout. The sleeve's staple line was inspected and there was no evidence of ischemia, bleeding or dehiscence. At that point the gastroscope was withdrawn from the patient?s mouth while we were decompressing the bowel and the stomach from any remaining air. I looked into the lesser sac to see how the sleeve was situating and it was situating well. There was no bleeding from the staple line, spleen, or short gastric vessels. The Mediflex retractor was removed, and the undersurface of the liver was inspected and there was no bleeding. The patient was placed in supine position. I closed the fascial defect of the 12 mm port site with a figure of eight #1 Polysorb suture. Then 30cc Ropivacaine plain with 10 mg of Dexamethasone were used to infiltrate the fascial closure as well as all skin incisions. At this point, the abdomen was deflated, all ports were removed under direct vision, and no bleeding was noted from any of the port sites. The skin incisions were irrigated with saline and were closed with 4-0 absorbable monofilament sutures. Steri-Strips and OpSites were used to cover all incisions. The patient was extubated and was transferred in stable condition to the recovery room for further care. I was present and performed all woods parts of the procedure. Ms. Moffettson was the or first assist registered nurse. There were no residents to assist with this case. Quinten Levy MD, PhD, FACS Surgeon: Artur Levy MD Anesthesia: GETA, local and other (TAP block) Was an Line Maintainer Section used for this Procedure?: No Line Maintainer Section: Ria Strong Estimated blood loss (mL): 10 IV fluids (mL): 1,800 Urine output (mL): 0 (No Camacho to record output) Pathology: other (Stomach) Condition: stable Disposition: PACU
--- NOTE | 2023-08-14 09:37 | MHC.SHP ---
Pre-Procedural Eval Section A Date of Service: 08/14/23 The patient is an INPATIENT: No The History & Physical has been completed within 30 days and I have reviewed it.: Yes Section B Chief Complaint: Obesity, unspecified Relevant Family History (Specify if Yes): No Relevant Social History: None Present Medications: None Medical History: No relevant PMH History of Previous Operations: No relevant previous surgery Allergies: Allergies Allergy/AdvReac Type Severity Reaction Status Date / Time shellfish derived AdvReac Severe Facial Verified 05/18/23 10:29 Swelling Sulfa (Sulfonamide AdvReac Intermediate Itching Verified 05/18/23 10:29 Antibiotics) Review of Systems Sugical H&P ROS: Negative: Constitution, Cardiovascular, Respiratory, Neurological, Psychiatric, Hem-Onc, Allergic/Immunologic, Gastrointestinal, Genitourinary, Musculoskeletal, Integumentary, Endocrine and Eyes/Ears/Nose/Throat Exam Surgical H&P Exam: Normal: HEENT, Normal: Heart, Normal: Lungs, Normal: Extremities, Normal: Abdomen, Normal: Skin and Normal: Neurological Plan Diagnosis/Plan: Unchanged I have reviewed the history and physical and performed a pertinent physical examination on my patient. No changes have occurred unless specified. Time Spent With Patient Time: Total time managing care of this patient today ____ minutes.
--- NOTE | 2023-08-14 09:39 | P.PNGS_ITS ---
Subjective Subjective Date of Service: 08/14/23 Interval history: Feels well. Mild incisional pain. She is tolerating phase 1 bariatric diet Physical Exam 2 GI: Inspection: Yes normal to inspection, Yes incision (clean, dry and intact) and Yes obesity Palpation (GI): Soft to palpation Extrem: Right lower extremity: normal to inspection (no calf tenderness) L eft lower extremity: normal to inspection (no calf tenderness) Objective Data Active Medications Hydromorphone HCl (Hydromorphone Hcl 0.5 Mg/0.5 Ml Syringe) 0.25 mg IVPUSH Q5M PRN; Protocol PRN Reason: Pain, Severe (Pain Scale 7-10) Ondansetron HCl (Ondansetron Hcl 4 Mg/2 Ml Vial) 4 mg IVPUSH ONCE PRN PRN Reason: Nausea and Vomiting Labs 08/14/23 15:01 08/14/23 15:01 Procedures Date of Service Date of Service: 08/14/23 Progress Note: A&P Assessment and plan (1) Obesity: Status: Acute Assessment and Plan: s/p laparoscopic sleeve gastrectomy, lysis of adhesions and gastropexy Doing well Will check am labs and if OK the patient will be discharged home (2) BMI 35.0-35.9,adult: Status: Acute (3) Hypothyroidism: Status: Acute (4) Hypertension: Status: Acute (5) Liver fibrosis: Status: Acute (6) Primary thyroid cancer: Status: Acute (7) S/P laparoscopic sleeve gastrectomy: Status: Acute (8) Intra-abdominal adhesions: Status: Acute Time Spent With Patient Time: Total time managing care of this patient today ____ minutes. Quality Stroke Does the patient have a stroke diagnosis?: No VTE Prior VTE?: No VTE Risk Level:: Surgical - moderate VTE Device Contraindication: N/A - Device Ordered VTE Drug Contraindication: Treatment Not Indicated
[2023-08-14] MEDS: Lactated Ringers 1,000 ML 999 ML IV (10:30)
[2023-08-14 10:46] LABS: UPreg QC Valid YES; Urine Pregnancy NEGATIVE (NEGATIVE)
[2023-08-14] MEDS: Aprepitant 32 MG/4.4 ML VIAL IVPUSH (11:06)
--- NOTE | 2023-08-14 13:43 | PHA.MEDREC ---
Pharmacy Consult ? Medication Reconciliation Pharmacy has reviewed the medication reconciliation done by the RN.
--- NOTE | 2023-08-14 14:37 | PM.DS ---
DS: Providers Provider Date of Service: 08/15/23 Primary care physician: Unknown Physician DS: Diagnosis Discharge Diagnosis (1) Obesity: Status: Acute (2) BMI 35.0-35.9,adult: Status: Acute (3) Hypothyroidism: Status: Acute (4) Hypertension: Status: Acute (5) Liver fibrosis: Status: Acute (6) Primary thyroid cancer: Status: Acute DS: Summary Hospital Course Hospital Course: ADMITTING DIAGNOSIS: morbid obesity, hx thyroid cancer, HTN DISCHARGE DIAGNOSIS: same, s/p laparoscopic sleeve gastrectomy PAST SURGICAL HISTORY: thyroidectomy, cholecystectomy, section PROCEDURE: upper endoscopy, laparoscopic sleeve gastrectomy DISCHARGE SUMMARY: History of Present Illness: The patient is a 43 year-old woman with a BMI of 37.8 kg/m2 and associated co-morbidities as described above. The patient had extensive work-up, lost 17.9lbs preoperatively and was electively scheduled for laparoscopic, possible open sleeve gastrectomy and gastropexy. Risks and complications of the surgery were discussed with the patient in advance, particularly the possibility of , pulmonary embolism, anastomotic leak, bleeding, bowel injury, GERD, cardiac, renal or pulmonary complications. The patient understood all the risks and was in agreement with the surgical plan. Hospital Course: The patient underwent an uneventful laparoscopic sleeve gastrectomy with gastropexy on the day of admission. Postoperatively, the patient was transferred to the surgical floor. The patient received IV Acetaminophen and IV dilaudid for pain control. Patient was started on bariatric phase 1 diet POD #0. On postoperative day one, the patient was feeling well without nausea, vomiting, fevers, or tachycardia. The patient had some mild incisional pain and the abdomen was soft. On the morning of postoperative day one, the patient was continued on 1 ounce of water or ice every half hour. During the day, the patient did fairly well, having some incisional pain, but able to ambulate adequately and to tolerate liquids well. Since the patient is doing well, we decided that the patient was ready to be discharged. The patient was given instructions to follow-up with me next week and to call my office for any fever over 101, persistent abdominal pain, nausea, vomiting, GERD, symptoms of DVT such as calf tenderness, or leg swelling, or pulmonary embolism such as chest pain or shortness of breath. The patient was also instructed to drink 40-60 ounces of liquids per day using the 1-ounce cups. The patient had been given prescriptions for Tylenol for pain, Zofran prn for nausea, and pantoprazole and carafate previously. The patient was encouraged to ambulate and use the incentive spirometer. The patient was allowed to shower, but no baths, and encouraged to stay active at home. All of these instructions were given to the patient personally. All questions were answered and the patient understood all instructions, the instructions were also given to the patient in print. Time Attestation Discharge coordination time: Less than 30 minutes Quality: Safe Use of Opioids Does Pt have an Active Cancer Diagnosis on the Problem List?: No Quality: Stroke Does the patient have a stroke diagnosis?: No Physical Exam Vital Signs: Vital Signs: Last Vital Signs Temp 97.7 F 08/14/23 14:33 Pulse 98 08/14/23 14:33 Resp 18 08/14/23 14:33 BP 121/72 08/14/23 14:33 Pulse Ox 98 08/14/23 14:33 O2 Del Method Nasal Cannula 08/14/23 14:33 O2 Flow Rate 2 08/14/23 14:33 BMI result Body Mass Index 34.2 DS: Data Data Completed and Pending Pending studies at discharge: Pending at discharge 08/14/23 13:46 Surgical [PTH] Routine 08/14/23 14:10 Surgical [PTH] Routine Labs on day of discharge: Laboratory Results - last 24 hr 08/14/23 09:50 Urine Test NEGATIVE Discharge Plan Discharge Patient Disposition: Home, Self-Care Referrals: Physician,Unknown J [Primary Care Provider] - 1 Week Discharge Medications: Held candesartan-hydrochlorothiazid 16-12.5 mg tablet 1 tab PO DAILY Hold Instructions: Resume on 08/16/23. Check your blood pressure every morning. If blood pressure is: 1) less than 120/70 do not take the pill 2) 121-71 to 130-80, take half pill 3) over 131/81 take the whole pill No Action mecobalamin (vitamin B12) 1,000 mcg tablet,disintegrating 1,000 mcg sublingual DAILY Qty: 30 2RF Rx Instructions: place tablet under tongue and allow to dissolve for at least30 secs before swallowing levothyroxine 150 mcg capsule 150 mcg PO DAILY vitamin A palmitate 3,000 mcg (10,000 unit) capsule 10,000 unit PO DAILY Qty: 30 2RF pantoprazole 40 mg tablet,delayed release (DR/EC) 40 mg PO DAILY Qty: 90 0RF ondansetron 4 mg tablet,disintegrating 4 mg PO Q6H PRN (Reason: nausea and vomiting) Qty: 20 0RF Rx Instructions: Only take one every 12 hours as needed if you have nausea Discharge Orders: Discharge Order (Routine); Ordered 08/15/23 Ordered By: Artur Levy Activity on Discharge: No heavy lifting Activity Restrictions/Additional Instructions: No tub baths, sex or returning to work until discussed at first post op appointment. No exercise, alcohol, tobacco or illegal drug use. Continue to use incentive spirometer hourly while awake. Walk in home for 5- 10 minutes every 2 hours during the first week. Continue phase 1 diet today and start phase 2 diet tomorrow morning. Follow all instructions in the bariatric handbook and call with any questions. 1. Please call your doctor or come back to the emergency room should any new symptoms arise. 2. You will receive a courtesy call from [facility] 24-48 hours after discharge. 3. Activity: abstain from alcohol, practice limited stair climbing, no bending, no driving, no exercise, no illicit substances, no lifting, no sex, no tub bath, no work. 4. Diet: continue as discussed with bariatric team.. 5. Dressing Change/Wound Care: Do not change or remove surgical dressings unless they are wet or soiled. 6. Call your doctor if: - Your temperature exceeds 101.5 F - You experience excessive pain or swelling - You have an unexpected reaction to medication - You have excessive bleeding - You experience continued vomiting/nausea - Your incision begins to separate - Your incision shows signs of infection such as increased redness, swelling, excessive pain, heat, or drainage (light blood or clear fluid is normal) 7. General instructions: No lifting greater than 5 lbs for 1 week and not more than 20lbs the next 3?weeks. No driving until seen at the office in 5-7 days after surgery. If you do not move your bowels in the next 2 days, please tell?Dr. Levy. Please walk around your home every hour or two to prevent blood clots from forming in your legs. You do not need to wake from sleeping to walk. Please sleep in a bed or couch to prevent kinking at the hips and knees. Please take your incentive spirometer (your lung pebble mill operator) home with you and use it for the next few days to prevent pneumonia. You may shower, no hot tubs, baths or swimming pools.?Please follow the post op diet instructions you are?given by Dr Jeff pate? and text me daily at 5-6pm for an update.?If you have any issues or concerns or questions please communicate this to him via text.? The Celebrate shakes have all of the bariatric vitamins you need if you consume these shakes. If you are drinking other protein shakes, you will need to purchase the Celebrate multivitamins and calcium that are available in the hospital gift shop on the first floor of the main hospital.??Do not take anything without first discussing with Dr Levy. Please make sure you are consuming at least 40 ounces of fluids per day starting the?day AFTER your discharge from the hospital. Always drink 1-2 ml per minute using the 5ml?syringe. If you drink faster you may experience?bloating,?gas pain, burping, nausea or heartburn. In that case please slow down your pace and use the syringe to?understand better the?proper?pace and volume of drinking. Do not hesitate to contact the office with any questions at . The patient's medical history has been reviewed and they are considered low risk for post op DVT and therefore DVT prophylaxis is not considered necessary. Travel after surgery was reviewed. The patient has not disclosed any travel plans during the first 30 days after surgery and they have been advised that within the first 30 days after surgery any bus, plane, train or car travel over 2 hours in duration is contraindicated due to the possibility of developing blood clots from immobility. Any travel, needs to include periods of ambulation of 10 minutes in duration every 2 hours. The patient was instructed to discuss any plans for travel during this period with their bariatric surgeon.
[2023-08-14 15:08] LABS: Hemoglobin 12.1 g/dl (12.0-16.0)
[2023-08-14 15:24] LABS: Anion Gap 17 (12-20); Blood Urea Nitrogen 10 mg/dL (9-16); Calcium 8.3 mg/dL (8.4-10.2); Carbon Dioxide 20 mmol/L (22-29); Chloride 106 mmol/L (96-108); Creatinine Clr Calc Pharmacy 112.1; Estimated Glomerular Filt Rate > 60; Glucose Random 99 mg/dL (60-115); Potassium 3.5 mmol/L (3.3-5.1); Sodium 139 mmol/L (135-145)
[2023-08-14] MEDS: Lactated Ringers 1,000 ML 100 ML IVCONT (16:38)
[2023-08-14] MEDS: Famotidine/PF 20 MG/2 ML VIAL IVPUSH ×2 (16:38→21:12)
[2023-08-14] MEDS: 0.9 % Sodium Chloride Flush 3 ML SYRINGE IVFLUSH ×2 (16:38→21:12)
[2023-08-14] MEDS: ceFAZolin Sodium/Dextrose,Iso 2 GM/50 ML PIGGYBACK IV (17:39)
[2023-08-14] MEDS: Acetaminophen 1,000 MG/100 ML PIGGYBACK 16.7 MG IV (19:59)
[2023-08-15] MEDS: Acetaminophen 1,000 MG/100 ML PIGGYBACK 16.7 MG IV ×2 (02:08→07:12)
[2023-08-15] MEDS: Lactated Ringers 1,000 ML 100 ML IVCONT (02:09)
[2023-08-15 03:45] VITALS: BP 126/62; PULSE 76; RESP 16; TEMP 36.6; O2SAT 96
[2023-08-15 07:05] LABS: MANUAL DIFF FLAG NO
[2023-08-15 07:08] LABS: Hematocrit 35.2 % (37.0-47.0); Hemoglobin 11.5 g/dl (12.0-16.0); Imm Gran Abs Auto 0.03 X10*3/uL (0.00-0.03); Imm Gran Pct Auto 0.4 % (0.0-0.4); Lymphocytes Absolute Auto 0.7 X10*3/uL (1.2-4.9); Lymphocytes Percent Auto 7.8 % (20-40); Mean Corpuscular HGB Conc 32.7 g/dl (31.0-35.0); Mean Corpuscular Hemoglobin 28.5 pg (27.0-33.0); Mean Corpuscular Volume 87.1 fL (80.0-98.0); Mean Platelet Volume 10.9 fL (9.4-12.3); Monocytes Absolute Auto 0.5 X10*3/uL (0.1-1.2); Monocytes Percent Auto 5.9 % (2-11); Neutrophils Absolute Auto 7.2 x10*3/uL (2.0-8.3); Neutrophils Percent Auto 85.9 % (45-73); Platelet Count 258 X10*3/uL (160-400); Red Blood Count 4.04 X10*6/uL (4.20-5.50); Red Cell Distribution Width 12.9 % (11.0-16.0); White Blood Count 8.4 X10*3/uL (4.8-10.8)
[2023-08-15] MEDS: Famotidine/PF 20 MG/2 ML VIAL IVPUSH (07:12)
[2023-08-15 07:25] LABS: Anion Gap 15 (12-20); Blood Urea Nitrogen 8 mg/dL (9-16); Calcium 8.7 mg/dL (8.4-10.2); Carbon Dioxide 20 mmol/L (22-29); Chloride 105 mmol/L (96-108); Creatinine Clr Calc Pharmacy 110.4; Estimated Glomerular Filt Rate > 60; Glucose Random 115 mg/dL (60-115); Sodium 136 mmol/L (135-145)
[2023-08-15 07:27] VITALS: BP 117/61; PULSE 74; RESP 16; TEMP 36.2; O2SAT 100
--- NOTE | 2023-08-15 09:53 | MHC.CM.PN ---
Female 43 s/p Gastric sleeve. She lives with her family. She is independent with all functional mobility. PCP Niels Martinez. No HCP on file. Pt declined the offer to document a HCP. DP home self care. Patients spouse will transport home. Pt discharged today.
--- NOTE | 2023-08-15 11:23 | HO.POSTANES ---
Post Anesthesia Evaluation Post Anesthesia Evaluation Date of Service: 08/14/23 Vital Signs: Vital Signs Temp Pulse Resp BP Pulse Ox O2 Del Method 08/15/23 07:45 Room Air 08/15/23 07:27 97.1 F 74 16 117/61 100 Room Air 08/15/23 03:45 97.9 F 76 16 126/62 96 Room Air 08/14/23 23:57 97.0 F 73 16 130/72 97 Room Air Anesthesia: General Endotracheal-GETA Mental Status: Awake Pain Control: Satisfactory Nausea/Vomiting: None Hydration: Adequate Anesthesia-Related Issues: No Anes. Related Issues
== END 2023-08-15 10:46 | disposition home or self-care (01) ==
LOC: HO.SSS 14:36 → HO.S3 08-15 08:28
PROVIDERS: Physician Assistant; PCP Nurse Practitioner Acute Care; Visit Provider Surgery
PROC: (CPT 43845; principal; 2023-08-14 12:50)
DX: E66.01 Morbid (severe) obesity due to excess calories (principal); Z68.35 Body mass index [BMI] 35.0-35.9, adult; K66.0 Peritoneal adhesions (postprocedural) (postinfection); K29.50 Unspecified chronic gastritis without bleeding; I10 Essential (primary) hypertension; E89.0 Postprocedural hypothyroidism; K74.00 Hepatic fibrosis, unspecified; C73 Malignant neoplasm of thyroid gland; Z88.2 Allergy status to sulfonamides; Z90.49 Acquired absence of other specified parts of digestive tract; E55.9 Vitamin D deficiency, unspecified; E50.9 Vitamin A deficiency, unspecified; E53.8 Deficiency of other specified B group vitamins; Z79.899 Other long term (current) drug therapy
CPT/HCPCS: 43775; 43659; 49329; 36415; 80048; 81025; 85014; 85018; 85025; 86850; 86900; 86901; 88305; 88307; 88342; A4649; C9145; J0131; J0690; J1100; J1170; J2250; J2371; J2405; J2704; J2795; J3010; J7120

== ENCOUNTER → 2023-08-14 14:32 | Outpatient (BNV) | payer OTHER, SELFPAY | PROVIDERS: Admitting Provider Physician Assistant; Visit Provider Surgery | DX: E66.9 Obesity, unspecified (principal); Z68.35 Body mass index [BMI] 35.0-35.9, adult | CPT/HCPCS: 43659; 43775; 99024 ==

== ENCOUNTER 2023-08-21 10:34 | Outpatient (AMB) | payer OTHER, SELFPAY ==
--- NOTE | 2023-08-21 11:03 | A.OFFVIS_ITS ---
Intake VS Expanded 08/21/23 11:18 BP 120/68 Blood Pressure Location Rt brachial Blood Pressure Position Sitting Pulse 70 Pulse Source Pulse Oximeter Temp 97.6 F Temperature Source Temporal Artery Scan Pulse Oximetry 97 Oxygen Delivery Method Room Air Height 5 ft 2 in Weight 180 lb 6.4 oz BMI 33.0 Body Fat % 38.0 Body Fat Mass 68.6 Fat Free Mass 111.8 Visceral Fat Rating 8.0 Body Water % 44.3 Body Water Mass 79.8 Muscle Mass/Score 106.0 Basal Metabolic Rate/Score 1,541 Intake Visit Reasons: (OV) PO LSG 08/14/23 Treatment Plant Operator Required: No Allergies shellfish derived Adverse Reaction (Severe, Verified 08/21/23 11:05) Facial Swelling Sulfa (Sulfonamide Antibiotics) Adverse Reaction (Intermediate, Verified 08/21/23 11:05) Itching Medication List - Last Reconciled 08/21/23 by RIANNA Christopher candesartan-hydrochlorothiazid 16-12.5 mg 1 tab PO DAILY levothyroxine 150 mcg PO DAILY pantoprazole 40 mg PO DAILY HPI HPI Comments History of Present Illness Details 41-year-old female presents to the offic e in follow-up. She is 7 days status post sleeve gastrectomy performed on 08/14/2023. No bowel movement yet. No abdominal pain. Positive flatus. Tolerating 3 celebrate 4 in 1 shakes with 1 scoop per shake. Approximately 50 oz of fluid daily. She was enquiring about switching away from celebrate and utilizing her previous shake which was Isopure and she is going to discuss this with Dr. Levy. We did discuss the need for adding a celebrate or similar bariatric multivitamin daily as well as calcium plus D. She inquired about flight travel. She was advised to avoid flying for 30 days after surgery. Regarding her hypertension, she was on a previous combination pill however not taking that for weeks prior to surgery. Blood pressures in the 120s over 70s. [facility] Medical History (Updated 08/19/23 @ 00:01 by Miguel Tabares) Primary thyroid cancer Hypothyroidism Hypertension Surgical History H/O total thyroidectomy History of surgical removal of ganglion cyst Hx of colonoscopy Hx of cholecystectomy Hx of section Family History Mother Sleep apnea Hypertension Hypothyroid Father Hypertension Social History Household Members: Family Housing: House Do you presently have visiting nurse or other home services: No Alcohol intake: current Alcohol intake frequency: holidays/special occasions only Patient Tobacco Use Status: Never used Tobacco service: No Physical Exam GI Inspection: Yes incision (c/d/i) Assessment & Plan Assessment & Plan (1) S/P laparoscopic sleeve gastrectomy: Code(s): Z98.84 - Bariatric surgery status Plan: POD 7 s/p LSG on 08/14/[address] Levy Weight loss prior to surgery was 23.4 pounds or 11.1 % TBWL. Original weight on 05/18/2023 was 210.4 pounds and op weight was 187 pounds. Be sure to text Dr Levy exactly 1 week after surgery your weight from your home scale so he can adjust your meal plan. Continue meal plan until f/u w Ria in 2 weeks May shower, no submersion in bath for another week Continue abdominal binder with activity and exercise for the next 2 weeks. Exercise prior to surgery was stationary bike, may resume No abdominal exercises for 6 weeks post operatively Will be emailed link to post op video for review Reminded of the pace of drinking, 2 mL per minute, 1 oz/15 min. Advised to avoid airplane travel for approximately 30 days after surgery. Coding Level of Care Code Global (14943) Diagnoses S/P laparoscopic sleeve gastrectomy Z98.84
[2023-08-21 11:18] VITALS: BP 120/68; PULSE 70; TEMP 36.4; O2SAT 97; BMI 33.0
== END 2023-08-21 11:33 | disposition home or self-care (01) ==
PROVIDERS: PCP Nurse Practitioner Acute Care; Visit Provider Physician Assistant Surgical
DX: E66.9 Obesity, unspecified (principal); Z68.33 Body mass index [BMI] 33.0-33.9, adult; Z90.3 Acquired absence of stomach [part of]; Z98.84 Bariatric surgery status
CPT/HCPCS: 99024

== ENCOUNTER → 2023-08-21 10:34 | Outpatient (BNVA) | payer OTHER, SELFPAY | PROVIDERS: PCP Nurse Practitioner Acute Care; Visit Provider Physician Assistant Surgical ==

== ENCOUNTER 2023-09-06 15:00 | Outpatient (AMB) | payer OTHER, SELFPAY ==
--- NOTE | 2023-09-06 13:36 | MHC.OFFVISWM ---
Intake VS Expanded 09/06/23 15:18 Height 5 ft 2 in Weight 171 lb 2 oz BMI 31.3 Intake Visit Reasons: VIDEO PO LSG 08/14/23 Allergies shellfish derived Adverse Reaction (Severe, Verified 08/21/23 11:05) Facial Swelling Sulfa (Sulfonamide Antibiotics) Adverse Reaction (Intermediate, Verified 08/21/23 11:05) Itching Medication List - Last Reconciled 09/06/23 by Ria Strong PA-C candesartan-hydrochlorothiazid 16-12.5 mg 1 tab PO DAILY levothyroxine 150 mcg PO .6 d pantoprazole 40 mg PO DAILY sucralfate (Carafate) 10 mL PO BID HPI HPI Comments History of Present Illness Details 43 yo woman now 3.5 weeks s/p LSG. 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 TBWL is 38.8 lbs or 18.4%. No nausea, emesis, abd pain or reflux. Has been lightheaded sometimes - 120/70's. Some days not even getting 40 oz's per day. Meal plan per Dr Aguilar: Alternating between Isopure and Celebrate 4:1 8am - Isopure 1/2 scoop OR 2 scoops 4:1 11 am -shake, same as 8am 2 pm- bar 7pm - 4 forks scrambled egg, yogurt or cottage cheese. Exercise: bike x 1 hour 400 calories, 5 days per week. [facility] Medical History (Updated 08/29/23 @ 21:58 by Artur Levy MD) Primary thyroid cancer Hypothyroidism Hypertension Surgical History H/O total thyroidectomy History of surgical removal of ganglion cyst Hx of colonoscopy Hx of cholecystectomy Hx of section Family History Mother Sleep apnea Hypertension Hypothyroid Father Hypertension Social History Household Members: Family Housing: House Do you presently have visiting nurse or other home services: No Alcohol intake: current Alcohol intake frequency: holidays/special occasions only Patient Tobacco Use Status: Never used Tobacco service: No Assessment & Plan Assessment & Plan (1) S/P laparoscopic sleeve gastrectomy: Code(s): Z98.84 - Bariatric surgery status Plan: Only change tomeal plan is to alternate Isopure and Celebrate 4:1 days - take Celebrate MVI on the days that she has 2 Isopure shakes and none on the 4:1 days. Needs to drink at least 50- 70 ounces total fluids per day. My cell # given to patient, follow up with me in 3 weeks. Telehealth Telehealth Location of provider rendering services: practice address Location of patient: address on file Patient Identification confirmed using: Name, : Yes Telehealth method: video Patient verbally consented to treatment: Yes Patient verbally consented to billing insurance company: Yes Patient informed of any privacy concerns related to visit: Yes Coding Level of Care Code Global (53454) Diagnoses S/P laparoscopic sleeve gastrectomy Z98.84
[2023-09-06 15:18] VITALS: BMI 31.3
== END 2023-09-06 15:26 | disposition home or self-care (01) ==
LOC: HO.HBS 15:07
PROVIDERS: PCP Nurse Practitioner Acute Care; Visit Provider Physician Assistant
DX: Z98.84 Bariatric surgery status (principal)
CPT/HCPCS: 99024

== ENCOUNTER → 2023-09-06 15:00 | Outpatient (BNVA) | payer OTHER, SELFPAY | PROVIDERS: PCP Nurse Practitioner Acute Care; Visit Provider Physician Assistant ==

== ENCOUNTER 2023-09-17 09:45 | Outpatient (AMB) | payer OTHER, SELFPAY ==
--- NOTE | 2023-09-17 09:33 | A.OFFVIS_ITS ---
Intake VS Expanded 09/17/23 09:38 Height 5 ft 2 in Weight 169 lb BMI 30.9 Intake Visit Reasons: VIDEO PO LSG 08/14/23 Allergies shellfish derived Adverse Reaction (Severe, Verified 08/21/23 11:05) Facial Swelling Sulfa (Sulfonamide Antibiotics) Adverse Reaction (Intermediate, Verified 08/21/23 11:05) Itching HPI Nutrition Presentation Details CERTIFIED LOW VISION THERAPIST weight of 210.4 pre op weight 187 lbs 3 WKS PO 171# current weight 169# Diet Assmnt Details I am doing much better Meal plan per Dr Aguilar: Alternating between Isopure and Celebrate 4:1 8am - Isopure 1 scoop OR 2 scoops 4:1 11 am -shake, same as 8am 2 pm- zone perfect bar 7pm - 4 forks scrambled egg, yogurt or cottage cheese Pt asking for more food options, confused, feels like she didn't get enough instructions in between appts and looking for more guidance. Hydration 50-60oz , pt feels this is adequate, feels good no s/s dehydration Exercise: bike x 1 hour 5 days per week. Monitoring/Goals Nutrition problem monitoring total energy intake, level of knowledge/skill, total PRO intake, total CHO intake and weight Outcome progress progressing Learning/Education Readiness to learn good Stages of change action Most Recent Diabetes Results: Cholesterol 166 mg/dL (<200) 08/11/23 HDL Cholesterol 48 mg/dL (>40) 08/11/23 Triglycerides 51 mg/dL (<150) 08/11/23 Creatinine 0.67 mg/dL (0.5-1.4) 08/15/23 Blood Urea Nitrogen 8 mg/dL (9-16) L 08/15/23 Sodium 136 mmol/L (135-145) 08/15/23 Potassium 4.0 mmol/L (3.3-5.1) 08/15/23 Chloride 105 mmol/L (96-108) 08/15/23 Carbon Dioxide 20 mmol/L (22-29) L 08/15/23 Calcium 8.7 mg/dL (8.4-10.2) 08/15/23 AST 18 U/L (5-31) 08/11/23 ALT 15 U/L (0-31) 08/11/23 Total Protein 7.1 g/dL (6.5-8.0) 08/11/23 Albumin 4.2 g/dL (3.5-5.0) 08/11/23 PFSH Medical History (Updated 08/29/23 @ 21:58 by Artur Levy MD) Primary thyroid cancer Hypothyroidism Hypertension Surgical History H/O total thyroidectomy History of surgical removal of ganglion cyst Hx of colonoscopy Hx of cholecystectomy Hx of section Family History Mother Sleep apnea Hypertension Hypothyroid Father Hypertension Social History Household Members: Family Housing: House Do you presently have visiting nurse or other home services: No Alcohol intake: current Alcohol intake frequency: holidays/special occasions only Patient Tobacco Use Status: Never used Tobacco service: No Assessment & Plan Assessment & Plan (1) Obesity (BMI 30-39.9): Code(s): E66.9 - Obesity, unspecified Plan Pt to resume f/u with Ria (was never scheduled due to availability) . Advised pt on foods she can have for this stage (solid protein) and she will not advance her diet until she talks with Ria. take 20 minutes with meals Telehealth Telehealth Location of provider rendering services: practice address Location of patient: address on file Patient Identification confirmed using: Name, : Yes Telehealth method: video Patient verbally consented to treatment: Yes Patient verbally consented to billing insurance company: Yes Patient informed of any privacy concerns related to visit: Yes Minutes spent on Phone/Video with Pt.: 30 Coding Level of Care Code Nutr Indiv Subseq (20425) Diagnoses Obesity (BMI 30-39.9) E66.9 Time Spent (min) 30
[2023-09-17 09:38] VITALS: BMI 30.9
== END 2023-09-17 09:52 | disposition home or self-care (01) ==
LOC: HO.HBS 09:45
PROVIDERS: PCP Nurse Practitioner Acute Care; Visit Provider Dietitian, Registered
DX: E66.9 Obesity, unspecified (principal)

== ENCOUNTER → 2023-09-17 09:45 | Outpatient (BNVA) | payer OTHER, SELFPAY | PROVIDERS: PCP Nurse Practitioner Acute Care; Visit Provider Dietitian, Registered | DX: E66.9 Obesity, unspecified (principal); Z68.30 Body mass index [BMI] 30.0-30.9, adult; Z98.84 Bariatric surgery status; Z71.3 Dietary counseling and surveillance | CPT/HCPCS: 97803 ==

== ENCOUNTER 2023-09-25 10:30 | Outpatient (AMB) | payer OTHER, SELFPAY ==
--- NOTE | 2023-09-25 10:38 | A.OFFVIS_ITS ---
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 heartburn after brushing teeth bid. - believes it s the toothpaste. BP yesterday 134/85 while in pain. Today - 117/80, no pain. meal plan per Dr Aguilar: 8am - 1/2 scoop Isopure (10grams) 11am - 1 scoop Isopure 2pm- bar 7pm- 4 forks protein Exercise - 450 calories 5d/week, bike -speed 10, will increase resistance. Over 55- 58 minutes. [facility] Medical History (Updated 08/29/23 @ 21:58 by Artur Levy MD) Primary thyroid cancer Hypothyroidism Hypertension Surgical History H/O total thyroidectomy History of surgical removal of ganglion cyst Hx of colonoscopy Hx of cholecystectomy Hx of section Family History Mother Sleep apnea Hypertension Hypothyroid Father Hypertension Social History Household Members: Family Housing: House Do you presently have visiting nurse or other home services: No Alcohol intake: current Alcohol intake frequency: holidays/special occasions only Patient Tobacco Use Status: Never used Tobacco service: No Assessment & Plan Assessment & Plan (1) S/P laparoscopic sleeve gastrectomy: Code(s): Z98.84 - Bariatric surgery status Plan: Pt receives her meal plan from Dr Aguilar, no changes made today. She will contact him for any changes. Will stop her present toothpaste to see if heartburn resolves . I suggested water and or baking soda only for a few days to see if it resolves, and if so change to a non sweetened toothpaste. Will let me know if it does not resolve. Excellent work outs - will now increase the intensity to burn at least 10 mamie/minute Next appt with me in 4 weeks. Medications: Changed From sucralfate (Carafate) 10 mL PO BID To sucralfate (Carafate) 10 mL PO BID 30 days 600 mL 0RF Telehealth Telehealth Location of provider rendering services: practice address Location of patient: address on file Patient Identification confirmed using: Name, : Yes Telehealth method: video Patient verbally consented to treatment: Yes Patient verbally consented to billing insurance company: Yes Patient informed of any privacy concerns related to visit: Yes Coding Level of Care Code Global (94460) Diagnoses S/P laparoscopic sleeve gastrectomy Z98.84
[2023-09-25 10:43] VITALS: BMI 30.4
== END 2023-09-25 11:59 | disposition home or self-care (01) ==
LOC: HO.HBS 11:04
PROVIDERS: PCP Nurse Practitioner Acute Care; Visit Provider Physician Assistant
DX: Z98.84 Bariatric surgery status (principal)
CPT/HCPCS: 99024

== ENCOUNTER → 2023-09-25 10:30 | Outpatient (BNVA) | payer OTHER, SELFPAY | PROVIDERS: PCP Nurse Practitioner Acute Care; Visit Provider Physician Assistant | DX: Z98.84 Bariatric surgery status (principal) ==

== ENCOUNTER 2023-10-24 14:00 | Outpatient (AMB) | payer OTHER, SELFPAY ==
--- NOTE | 2023-10-24 13:45 | A.OFFVIS_ITS ---
Intake VS Expanded 10/24/23 14:05 Height 5 ft 2 in Weight 158 lb 5 oz BMI 29.0 Intake Visit Reasons: VIDEO PO LSG 08/14/23 Allergies shellfish derived Adverse Reaction (Severe, Verified 08/21/23 11:05) Facial Swelling Sulfa (Sulfonamide Antibiotics) Adverse Reaction (Intermediate, Verified 08/21/23 11:05) Itching Medication List - Last Reconciled 10/24/23 by Ria Strong PA-C levothyroxine 150 mcg PO .6 d dgdpqakpfdny-cxu-gixz-FA-vit K 45 mg iron- 800 mcg-120 mcg (Bariatric Multivitamins) caps PO pantoprazole 40 mg PO DAILY sucralfate (Carafate) 10 mL PO BID 30 days vitamin A palmitate 3,000 mcg PO DAILY HPI HPI Comments History of Present Illness Details Pt is now 10 weeks s/p LSG. 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 No further reflux once she changed toothpaste. Noticed her hair is thining wants to start biotin. Meal plan - per Dr Lopez She would like to have more real food 8am - Isopure - 1/4 scoop with water = 5 grams 12 pm - Isopure 1/2 scoop = 10 grams 3pm- protein bar = 15 grams 6pm - 3 forks protein and 2 forks cooked vegetable may have another shake if hungry Exercise - bike 5d/ week - 450- 550 calories over, 52 minutes. Mornings takes a walk - 8,000 steps (4 miles) in one hour? [facility] Medical History (Updated 08/29/23 @ 21:58 by Artur Levy MD) Primary thyroid cancer Hypothyroidism Hypertension Surgical History H/O total thyroidectomy History of surgical removal of ganglion cyst Hx of colonoscopy Hx of cholecystectomy Hx of section Family History Mother Sleep apnea Hypertension Hypothyroid Father Hypertension Social History Household Members: Family Housing: House Do you presently have visiting nurse or other home services: No Alcohol intake: current Alcohol intake frequency: holidays/special occasions only Patient Tobacco Use Status: Never used Tobacco service: No Assessment & Plan Assessment & Plan (1) S/P laparoscopic sleeve gastrectomy: Code(s): Z98.84 - Bariatric surgery status Plan: 10 weeks s/p LSG, needs more protein - 65 grams per day. Stop pantoprazole and sucralfate when empty. Can start biotin now. 8am - Isopure - full scoop with water = 20 grams 12 pm - Isopure 1/2 scoop = 10 grams 3pm- protein bar = 15 grms 6pm- 4 forks protein, 3 forks of cooked or raw vegetables Will continue stationary bike -try spin classes on her bike - 3,000 calories/week. Her goal is to lose 3 lbs per week to attain her goal and have 1 shake and 2 meals per day. Next appt with PA in 4 weeks. I spent 30 minutes in total speaking with the patient via video conference counseling , reviewing records and charting in patients chart. . Telehealth Telehealth Location of provider rendering services: practice address Location of patient: address on file Patient Identification confirmed using: Name, : Yes Telehealth method: video Patient verbally consented to treatment: Yes Patient verbally consented to billing insurance company: Yes Patient informed of any privacy concerns related to visit: Yes Coding Level of Care Code Tele Est Pt Level 4 (92751) Diagnoses S/P laparoscopic sleeve gastrectomy Z98.84
[2023-10-24 14:05] VITALS: BMI 29.0
== END 2023-10-24 14:31 | disposition home or self-care (01) ==
LOC: HO.HBS 14:20
PROVIDERS: PCP Nurse Practitioner Acute Care; Visit Provider Physician Assistant
DX: E66.3 Overweight (principal); Z68.29 Body mass index [BMI] 29.0-29.9, adult; Z90.3 Acquired absence of stomach [part of]; Z98.84 Bariatric surgery status
CPT/HCPCS: 99024

== ENCOUNTER → 2023-10-24 14:00 | Outpatient (BNVA) | payer OTHER, SELFPAY | PROVIDERS: PCP Nurse Practitioner Acute Care; Visit Provider Physician Assistant | DX: Z98.84 Bariatric surgery status (principal) ==

== ENCOUNTER 2023-11-19 10:22 | Outpatient (AMB) | payer OTHER, SELFPAY ==
--- NOTE | 2023-11-19 09:56 | MHC.OFFVISWM ---
Intake VS Expanded 11/19/23 09:59 Height 5 ft 2 in Weight 152 lb 8 oz BMI 27.9 Body Fat % 33.7 Body Fat Mass 51.3 Fat Free Mass 101 Visceral Fat Rating 10 Body Water % 45.4 Body Water Mass 69.2 Muscle Mass/Score 94.9 Basal Metabolic Rate/Score 1,395 Intake Visit Reasons: VIDEO PO LSG 08/14/23 Genetic Physician Required: No Allergies shellfish derived Adverse Reaction (Severe, Verified 08/21/23 11:05) Facial Swelling Sulfa (Sulfonamide Antibiotics) Adverse Reaction (Intermediate, Verified 08/21/23 11:05) Itching Medication List - Last Reconciled 11/19/23 by RIANNA Christopher levothyroxine 150 mcg PO .6 d xaklprgppgog-egx-ewtx-FA-vit K 45 mg iron- 800 mcg-120 mcg (Bariatric Multivitamins) caps PO vitamin A palmitate 3,000 mcg PO DAILY HPI HPI Comments History of Present Illness Details This?a?43?yo female who is s/p LSG without hiatal hernia repair on?08/14/2023. Presents for three-month post op visit. Weight today is 152.5 pounds, with a BMI of 27.9. There has been a 57.9 pound weight loss,(initial weight 210.4 pounds) since starting the program on 05/18/2023 reflecting a 27.5 % total body weight loss and a weight loss of 34.5 pounds since surgery (operative weight 187 pounds) reflecting a 18.4 % TBWL since surgery. No complaints of nausea, emesis, abdominal pain or reflux. Reports infrequent but normal bowel movements every 1-2 days. She states she has been talking w Dr Aguilar and there was a concern about GERD and it was felt from eating or drinking too fast. Present meal plan includes: 8-10am - Isopure - full scoop with water = 20 grams 12-2 pm - Isopure 1/2 scoop = 10 grams 3pm- ZP protein bar = 15 grms 6pm- 4 forks protein, 3 forks of cooked or raw vegetables Drinking 40 oz daily ? Exercise routine includes: stationary bike 3 x per week 450 calories jogging outside 5-6 days per week, 5 miles, [facility] Medical History (Updated 08/29/23 @ 21:58 by Artur Levy MD) Primary thyroid cancer Hypothyroidism Hypertension Surgical History H/O total thyroidectomy History of surgical removal of ganglion cyst Hx of colonoscopy Hx of cholecystectomy Hx of section Family History Mother Sleep apnea Hypertension Hypothyroid Father Hypertension Social History Household Members: Family Housing: House Do you presently have visiting nurse or other home services: No Alcohol intake: current Alcohol intake frequency: holidays/special occasions only Patient Tobacco Use Status: Never used Tobacco service: No Assessment & Plan Assessment & Plan (1) S/P laparoscopic sleeve gastrectomy: Code(s): Z98.84 - Bariatric surgery status Plan: change meal plan: 8-11am - Isopure - full scoop with 12 oz water, or celebrate 4 in 1 in 12 oz almond milk 12-3pm- ZP protein bar = 15 grms 6pm- 4 forks protein, 3 forks of cooked or raw vegetables Continue exercise. She states that she additionally does not like the multivitamin although was taking it in the morning, suggested taking it after her evening meal. She additionally is complaining of rash to the pannus as it does get sweaty and sometimes has an odor. We will add clotrimazole as needed. Medications: New clotrimazole 1% (Antifungal (clotrimazole)) 1 appl topical BID PRN 45 grams 2RF rash Telehealth Telehealth Location of provider rendering services: practice address Location of patient: address on file Patient Identification confirmed using: Name, : Yes Telehealth method: voice only Patient verbally consented to treatment: Yes Patient verbally consented to billing insurance company: Yes Patient informed of any privacy concerns related to visit: Yes Minutes spent on Phone/Video with Pt.: 15 Coding Level of Care Code Tele Est Pt Level 3 (01215) Diagnoses S/P laparoscopic sleeve gastrectomy Z98.84 Time Spent (min) 20
[2023-11-19 09:59] VITALS: BMI 27.9
== END 2023-11-19 10:24 | disposition home or self-care (01) ==
LOC: HO.HBS 10:22
PROVIDERS: PCP Nurse Practitioner Acute Care; Visit Provider Physician Assistant Surgical
DX: E66.3 Overweight (principal); Z68.27 Body mass index [BMI] 27.0-27.9, adult; Z90.3 Acquired absence of stomach [part of]; Z98.84 Bariatric surgery status
CPT/HCPCS: 99213

== ENCOUNTER → 2023-11-19 10:22 | Outpatient (BNVA) | payer OTHER, SELFPAY | PROVIDERS: PCP Nurse Practitioner Acute Care; Visit Provider Physician Assistant Surgical ==

== ENCOUNTER 2023-12-31 10:26 | Outpatient (AMB) | payer OTHER, SELFPAY ==
--- NOTE | 2023-12-31 10:07 | MHC.OFFVISWM ---
VS Expanded 12/31/23 10:10 Height 5 ft 2 in Weight 143 lb 6.4 oz BMI 26.2 Intake Visit Reasons: (TV) PO LSG 08/14/23 Fitness Plan Coordinator Required: No Allergies shellfish derived Adverse Reaction (Severe, Verified 08/21/23 11:05) Facial Swelling Sulfa (Sulfonamide Antibiotics) Adverse Reaction (Intermediate, Verified 08/21/23 11:05) Itching Medication List - Last Reconciled 12/31/23 by RIANNA Christopher clotrimazole 1% (Antifungal (clotrimazole)) 1 appl topical BID PRN levothyroxine 150 mcg PO .6 d rqecrcqyxbvf-ofi-rtge-FA-vit K 45 mg iron- 800 mcg-120 mcg (Bariatric Multivitamins) caps PO vitamin A palmitate 3,000 mcg PO DAILY HPI Comments Details: This?a?43?yo female who is s/p LSG without hiatal hernia repair on?08/14/2023. Presents for 4.5 month post op visit. Weight today is 143.4 pounds, with a BMI of 26.2. There has been a 67 pound weight loss,(initial weight 210.4 pounds) since starting the program on 05/18/2023 reflecting a 31.8 % total body weight loss and a weight loss of 43.6 pounds since surgery (operative weight 187 pounds) reflecting a 23.3 % TBWL since surgery. No complaints of nausea, emesis, abdominal pain or reflux. Reports infrequent but normal bowel movements every 1-2 days. She states she is very happy with how she feels. Wants to add an egg in the morning Present meal plan includes: 8-11am - Isopure - full scoop with 12 oz water, or celebrate 4 in 1 2 scoops in 12 oz almond milk 12-3pm- ZP protein bar = 15 grms 6pm- 4 forks protein, 3 forks of cooked or raw vegetables Drinking 40 oz daily ? Exercise routine includes: stationary bike 3 x per week 450 calories jogging outside 5 k. 5-6 days per week, 5 miles [facility] Medical History (Updated 08/29/23 @ 21:58 by Artur eLvy MD) Primary thyroid cancer Hypothyroidism Hypertension Surgical History H/O total thyroidectomy History of surgical removal of ganglion cyst Hx of colonoscopy Hx of cholecystectomy Hx of section Family History Mother Sleep apnea Hypertension Hypothyroid Father Hypertension Social History Household Members: Family Housing: House Do you presently have visiting nurse or other home services: No Alcohol intake: current Alcohol intake frequency: holidays/special occasions only Patient Tobacco Use Status: Never used Tobacco service: No Telehealth Telehealth Telehealth Platform: Telephone Location of provider rendering services: practice address Location of patient: address on file Patient Identification confirmed using: Name, : Yes Telehealth method: voice only Patient verbally consented to treatment: Yes Patient verbally consented to billing insurance company: Yes Patient informed of any privacy concerns related to visit: Yes Minutes spent on Phone/Video with Pt.: 15 Assessment & Plan Assessment & Plan (1) S/P laparoscopic sleeve gastrectomy: Code(s): Z98.84 - Bariatric surgery status Category: Surgical Plan: Overall doing very well. Wishes to add in a scrambled egg in the morning and decreased shake. She additionally states that she is planning to do some intense weight training with a agency trainer. I instructed her to call me if in fact she does do this as her protein requirements will go up. She will follow up in the office in about 6 weeks for her six-month follow-up appointment. 8-11am - Isopure - 1/2 scoop with 12 oz water, or celebrate 4 in 1 1 scoops in 12 oz almond milk w 1 scram egg with veg 12-3pm- ZP protein bar = 15 grms 6pm- 4 forks protein, 3 forks of cooked or raw vegetables
[2023-12-31 10:10] VITALS: BMI 26.2
== END 2023-12-31 10:48 | disposition home or self-care (01) ==
LOC: HO.HBS 10:26
PROVIDERS: PCP Nurse Practitioner Acute Care; Visit Provider Physician Assistant Surgical
DX: E66.3 Overweight (principal); Z68.26 Body mass index [BMI] 26.0-26.9, adult; Z90.3 Acquired absence of stomach [part of]; Z98.84 Bariatric surgery status
CPT/HCPCS: 99213

== ENCOUNTER → 2023-12-31 10:26 | Outpatient (BNVA) | payer OTHER, SELFPAY | PROVIDERS: PCP Nurse Practitioner Acute Care; Visit Provider Physician Assistant Surgical ==

== ENCOUNTER 2024-03-20 12:20 | Outpatient (REF) | payer OTHER, SELFPAY ==
[2024-03-20 12:34] LABS: MANUAL DIFF FLAG NO
[2024-03-20 13:07] LABS: Basophils Percent Auto 0.6 % (0-2); Eosinophils Absolute Auto 0.1 X10*3/uL (0.0-0.4); Eosinophils Percent Auto 1.8 % (0-4); Hematocrit 35.9 % (37.0-47.0); Hemoglobin 11.5 g/dl (12.0-16.0); Imm Gran Abs Auto 0.01 X10*3/uL (0.00-0.03); Imm Gran Pct Auto 0.2 % (0.0-0.4); Lymphocytes Absolute Auto 1.8 X10*3/uL (1.2-4.9); Lymphocytes Percent Auto 36.3 % (20-40); Mean Corpuscular Hemoglobin 29.2 pg (27.0-33.0); Mean Corpuscular Volume 91.1 fL (80.0-98.0); Monocytes Absolute Auto 0.4 X10*3/uL (0.1-1.2); Monocytes Percent Auto 7.8 % (2-11); Neutrophils Absolute Auto 2.6 x10*3/uL (2.0-8.3); Neutrophils Percent Auto 53.3 % (45-73); Platelet Count 226 X10*3/uL (160-400); Red Blood Count 3.94 X10*6/uL (4.20-5.50); Red Cell Distribution Width 14.4 % (11.0-16.0); White Blood Count 4.9 X10*3/uL (4.8-10.8)
[2024-03-20 13:18] LABS: Estimated Average Glucose 94 mg/dL; Hemoglobin A1c % 4.9 % (<6.0)
[2024-03-20 13:46] LABS: Alanine Aminotransferase 22 U/L (0-31); Albumin Level 4.1 g/dL (3.5-5.0); Alkaline Phosphatase 51 U/L (39-117); Anion Gap 9 (12-20); Aspartate Amino Transferase 18 U/L (5-31); Bilirubin Total 0.8 mg/dL (0.0-1.0); Blood Urea Nitrogen 9 mg/dL (9-16); C Reactive Protein < 0.10 mg/dL (< or = 0.50); Calcium 9.3 mg/dL (8.4-10.2); Carbon Dioxide 29 mmol/L (22-29); Chloride 105 mmol/L (96-108); Cholesterol 154 mg/dL (<200); Estimated Glomerular Filt Rate > 60; Glucose Random 84 mg/dL (60-115); HDL Cholesterol 57 mg/dL (>40); Iron 103 mcg/dL (30-160); LDL Cholesterol Calculated 89 mg/dL (<100); Percent Iron Saturation 41 % (15-50); Potassium 3.8 mmol/L (3.3-5.1); Sodium 139 mmol/L (135-145); Total Iron Binding Capacity 253 mcg/dL (228-428); Total Protein 6.8 g/dL (6.5-8.0); Triglycerides 43 mg/dL (<150); Unsaturated Iron Binding 150 ug/dL
[2024-03-20 14:02] LABS: Ferritin 94 ng/mL (10-250); Insulin 4 uU/mL (2-29); TSH reflex Free T4 0.07 uIU/mL (0.32-4.0); Vitamin D 25-OH Total 40.5 ng/mL (>30)
[2024-03-20 14:13] LABS: Folate 13.9 ng/mL (> or = 4.0); Vitamin B12 346 pg/mL (200-900)
[2024-03-20 14:33] LABS: Free T4 (Free Thyroxine) 1.44 ng/dL (0.71-1.85)
[2024-03-24 10:24] LABS: Zinc 61 mcg/dL (60-130)
[2024-03-26 20:29] LABS: Vitamin A 30 mcg/dL (38-98)
[2024-03-27 06:27] LABS: Vitamin B1 14 nmol/L (8-30)
== END 2024-03-20 12:21 | disposition home or self-care (01) ==
LOC: HO.LAB 12:20
PROVIDERS: PCP Nurse Practitioner Acute Care; Visit Provider Physician Assistant Surgical
DX: Z00.00 Encounter for general adult medical examination without abnormal findings (principal); Z98.84 Bariatric surgery status; K74.00 Hepatic fibrosis, unspecified; E55.9 Vitamin D deficiency, unspecified; E50.9 Vitamin A deficiency, unspecified; E53.8 Deficiency of other specified B group vitamins; I10 Essential (primary) hypertension; E03.9 Hypothyroidism, unspecified; Z13.1 Encounter for screening for diabetes mellitus
CPT/HCPCS: 36415; 80053; 80061; 82306; 82607; 82728; 82746; 83036; 83525; 83540; 84425; 84439; 84443; 84590; 84630; 85025; 86140

== ENCOUNTER 2024-03-21 11:04 | Outpatient (AMB) | payer OTHER, SELFPAY ==
--- NOTE | 2024-03-21 10:42 | A.OFFVIS_ITS ---
VS Expanded 03/21/24 10:43 Height 5 ft 2 in Weight 155 lb BMI 28.3 Intake Visit Reasons: (video) PO LSG 08/14/23 Director Of Health Care Marketing Required: No Allergies shellfish derived Adverse Reaction (Severe, Verified 08/21/23 11:05) Facial Swelling Sulfa (Sulfonamide Antibiotics) Adverse Reaction (Intermediate, Verified 08/21/23 11:05) Itching Medication List - Last Reconciled 03/21/24 by RIANNA Christopher clotrimazole 1% (Antifungal (clotrimazole)) 1 appl topical BID PRN levothyroxine 150 mcg PO .6 d wgwvevmhyjrr-llo-iqol-FA-vit K 45 mg iron- 800 mcg-120 mcg (Bariatric Multivitamins) caps PO vitamin A palmitate 3,000 mcg PO DAILY HPI Comments Details: This?a?43?yo female who is s/p LSG without hiatal hernia repair on?08/14/2023. Presents for 7 month post op visit. Weight today is 155 pounds, with a BMI of 28.3. There has been a 55.4 pound weight loss,(initial weight 210.4 pounds) since starting the program on 05/18/2023 reflecting a 26.3 % total body weight loss and a weight loss of 32 pounds since surgery (operative weight 187 pounds) reflecting a 17.1 % TBWL since surgery. No complaints of nausea, emesis, abdominal pain or reflux. Reports infrequent but normal bowel movements every 1- 2 days. She states she has been weight training and she thinks her weight gain is from that. She isn't following the plans. taking celebrate MVI. Training for bodybuilding competition. No under the care of production leader or software developer. Feels great overall. Stock Roller is Dr Ladi Kinney and she has low TSH intentionally due to hx of thyroid ca and per pt, endocrine is aware of low levels. water in the morning until noon noon-1230: celebrate 4 in 1, 2 scoops in 8 oz almond milk 230-235 zp bar 5pm meal: not measuring by forks, ? 1/2 palm size, w veg and rice and beans 830 zp bar drinking 40 oz water Present meal plan includes: 8-11am - Isopure - 1/2 scoop with 12 oz water, or celebrate 4 in 1 1 scoops in 12 oz almond milk w 1 scram egg with veg 12-3pm- ZP protein bar = 15 grms 6pm- 4 forks protein, 3 forks of cooked or raw vegetables Drinking 40 oz daily ? Exercise routine includes: 2.5 hours weight training, 6 days, 15-20 minutes of cardio 5 days 5k run 1 day per week. PFSH Medical History Primary thyroid cancer Hypothyroidism Hypertension Surgical History H/O total thyroidectomy History of surgical removal of ganglion cyst Hx of colonoscopy Hx of cholecystectomy Hx of section Family History Mother Sleep apnea Hypertension Hypothyroid Father Hypertension Social History Household Members: Family Housing: House Do you presently have visiting nurse or other home services: No Alcohol intake: current Alcohol intake frequency: holidays/special occasions only Patient Tobacco Use Status: Never used Tobacco service: No Telehealth Telehealth Telehealth Platform: Telephone Location of provider rendering services: practice address Location of patient: address on file Patient Identification confirmed using: Name, : Yes Telehealth method: voice only Patient verbally consented to treatment: Yes Patient verbally consented to billing insurance company: Yes Patient informed of any privacy concerns related to visit: Yes Minutes spent on Phone/Video with Pt.: 20 Assessment & Plan Assessment & Plan (1) S/P laparoscopic sleeve gastrectomy: Code(s): Z98.84 - Bariatric surgery status Category: Surgical Plan: Encouraged her to follow recommended meal plan. She wishes to have options for celebrate 4 in 1 and I superior. I will suggest that she do the following Celebrate 4 in 1 2 scoops or isopure 1 scoop in 8 oz of unsweetened almond milk Zone perfect bar Meal with 6 forks protein and 5 forks veggies, no rice Half zone perfect bar May have half cup fresh berries if she wishes. Encouraged to increase her cardio to 45 minutes daily then weight training to help her cut fat for her body building training. Return to clinic as scheduled
[2024-03-21 10:43] VITALS: BMI 28.3
== END 2024-03-21 11:12 | disposition home or self-care (01) ==
LOC: HO.HBS 11:04
PROVIDERS: PCP Nurse Practitioner Acute Care; Visit Provider Physician Assistant Surgical
DX: E66.3 Overweight (principal); Z68.28 Body mass index [BMI] 28.0-28.9, adult; Z90.3 Acquired absence of stomach [part of]; Z98.84 Bariatric surgery status
CPT/HCPCS: 99213

== ENCOUNTER → 2024-03-21 11:04 | Outpatient (BNVA) | payer OTHER, SELFPAY | PROVIDERS: PCP Nurse Practitioner Acute Care; Visit Provider Physician Assistant Surgical ==

== ENCOUNTER 2024-05-29 10:00 | Outpatient (AMB) | payer OTHER, SELFPAY ==
--- NOTE | 2024-05-29 08:40 | MHC.OFFVISWM ---
VS Expanded 05/29/24 08:41 Height 5 ft 2 in Weight 150 lb 4 oz BMI 27.5 Body Fat % 20.7 Fat Free Mass 119.2 Visceral Fat Rating 7 Body Water % 54.3 Muscle Mass/Score 112 Basal Metabolic Rate/Score 1,530 Intake Visit Reasons: (TV) PO LSG 08/14/23 Capacity Planning Engineer Required: No Allergies shellfish derived Adverse Reaction (Severe, Verified 08/21/23 11:05) Facial Swelling Sulfa (Sulfonamide Antibiotics) Adverse Reaction (Intermediate, Verified 08/21/23 11:05) Itching Medication List - Last Reconciled 05/29/24 by RIANNA Christopher clotrimazole 1% (Antifungal (clotrimazole)) 1 appl topical BID PRN levothyroxine 150 mcg PO .6 d rqabfislhuyd-lpt-hroo-FA-vit K 45 mg iron- 800 mcg-120 mcg (Bariatric Multivitamins) caps PO vitamin A palmitate 3,000 mcg PO DAILY HPI Comments Details: This?a?44?yo female who is s/p LSG without hiatal hernia repair on?08/14/2023. Presents for 10 month post op visit. Weight today is 150.4 pounds, with a BMI of 27.5. There has been a 60 pound weight loss,(initial weight 210.4 pounds) since starting the program on 05/18/2023 reflecting a 28.5 % total body weight loss and a weight loss of 36.6 pounds since surgery (operative weight 187 pounds) reflecting a 19.5 % TBWL since surgery. No complaints of nausea, emesis, abdominal pain or reflux. Reports infrequent but normal bowel movements every 1-2 days. She states she has been weight training and she thinks her weight gain is from that. She isn't following the plans. taking celebrate MVI. Training for bodybuilding competition. Now under the care of customer relationship specialist or boilermaker. Feels great overall. Aerodynamics Teacher is Dr Ladi Kinney and she has low TSH intentionally due to hx of thyroid ca and per pt, endocrine is aware of low levels. She states she has not followed the meal plan exactly, but is going to try the right [email or web address] Present meal plan includes: Celebrate 4 in 1 2 scoops or isopure 1 scoop in 8 oz of unsweetened almond milk Zone perfect bar Meal with 6 forks protein and 5 forks veggies, no rice Half zone perfect bar May have half cup fresh berries if she wishes. ? Exercise routine includes: 2.5 hours weight training, 6 days, 45 minutes of cardio 5 days 5k run 1 day per week. PFSH Medical History Primary thyroid cancer Hypothyroidism Hypertension Surgical History H/O total thyroidectomy History of surgical removal of ganglion cyst Hx of colonoscopy Hx of cholecystectomy Hx of section Family History Mother Sleep apnea Hypertension Hypothyroid Father Hypertension Social History Household Members: Family Housing: House Do you presently have visiting nurse or other home services: No Alcohol intake: current Alcohol intake frequency: holidays/special occasions only Patient Tobacco Use Status: Never used Tobacco service: No Telehealth Telehealth Telehealth Platform: Telephone Location of provider rendering services: practice address Location of patient: address on file Patient Identification confirmed using: Name, : Yes Telehealth method: voice only Patient verbally consented to treatment: Yes Patient verbally consented to billing insurance company: Yes Patient informed of any privacy concerns related to visit: Yes Minutes spent on Phone/Video with Pt.: 12 Assessment & Plan Assessment & Plan (1) S/P laparoscopic sleeve gastrectomy: Code(s): Z98.84 - Bariatric surgery status Category: Surgical Plan: Patient is doing very well. She continues to train for her body building competition. She is very knowledgeable about her health, meal plan, exercise plan. She is going to look into the right BMI lydia. we will have her return to the office in July for 1 year follow-up and labs at that time. She was encouraged to continue to text with any questions or concerns
[2024-05-29 08:41] VITALS: BMI 27.5
== END 2024-05-29 10:22 | disposition home or self-care (01) ==
LOC: HO.HBS 10:10
PROVIDERS: PCP Nurse Practitioner Acute Care; Visit Provider Physician Assistant Surgical
DX: E66.812 Obesity, class 2 (principal); Z68.36 Body mass index [BMI] 36.0-36.9, adult; Z98.84 Bariatric surgery status; Z90.3 Acquired absence of stomach [part of]
CPT/HCPCS: 99213

== ENCOUNTER → 2024-05-29 10:00 | Outpatient (BNVA) | payer OTHER, SELFPAY | PROVIDERS: PCP Nurse Practitioner Acute Care; Visit Provider Physician Assistant Surgical ==

== ENCOUNTER 2024-10-17 11:18 | Outpatient (REF) | payer OTHER, SELFPAY ==
[2024-10-17 11:38] LABS: MANUAL DIFF FLAG NO
[2024-10-17 11:55] LABS: Basophils Absolute Auto 0.1 X10*3/uL (0.0-0.2); Basophils Percent Auto 1.3 % (0-2); Eosinophils Absolute Auto 0.3 X10*3/uL (0.0-0.4); Eosinophils Percent Auto 5.9 % (0-4); Hematocrit 36.1 % (37.0-47.0); Imm Gran Abs Auto 0.01 X10*3/uL (0.00-0.03); Imm Gran Pct Auto 0.2 % (0.0-0.4); Lymphocytes Absolute Auto 1.5 X10*3/uL (1.2-4.9); Mean Corpuscular HGB Conc 33.2 g/dl (31.0-35.0); Mean Corpuscular Hemoglobin 30.2 pg (27.0-33.0); Mean Corpuscular Volume 90.7 fL (80.0-98.0); Mean Platelet Volume 10.3 fL (9.4-12.3); Monocytes Absolute Auto 0.4 X10*3/uL (0.1-1.2); Monocytes Percent Auto 9.3 % (2-11); Neutrophils Absolute Auto 2.3 x10*3/uL (2.0-8.3); Neutrophils Percent Auto 50.3 % (45-73); Platelet Count 216 X10*3/uL (160-400); Red Blood Count 3.98 X10*6/uL (4.20-5.50); Red Cell Distribution Width 13.3 % (11.0-16.0); White Blood Count 4.6 X10*3/uL (4.8-10.8)
[2024-10-17 12:11] LABS: Estimated Average Glucose 94 mg/dL; Hemoglobin A1C 98.1567 umol/L; Hemoglobin A1c % 4.9 % (<6.0); Total Hemoglobin (HGBA1C) 3210.0817 umol/L
[2024-10-17 12:40] LABS: Alanine Aminotransferase 18 U/L (0-31); Alkaline Phosphatase 49 U/L (39-117); Anion Gap 8 (12-20); Aspartate Amino Transferase 26 U/L (5-31); Bilirubin Total 0.7 mg/dL (0.0-1.0); Blood Urea Nitrogen 9 mg/dL (9-16); C Reactive Protein < 0.10 mg/dL (< or = 0.50); Calcium 8.7 mg/dL (8.4-10.2); Carbon Dioxide 28 mmol/L (22-29); Chloride 107 mmol/L (96-108); Cholesterol 151 mg/dL (<200); Estimated Glomerular Filt Rate > 60; Glucose Random 83 mg/dL (60-115); HDL Cholesterol 57 mg/dL (>40); Iron 132 mcg/dL (30-160); LDL Cholesterol Calculated 84 mg/dL (<100); Percent Iron Saturation 59 % (15-50); Sodium 139 mmol/L (135-145); Total Iron Binding Capacity 224 mcg/dL (228-428); Total Protein 6.8 g/dL (6.5-8.0); Triglycerides 50 mg/dL (<150); Unsaturated Iron Binding 92 ug/dL
[2024-10-17 12:57] LABS: Ferritin 195 ng/mL (10-250); TSH reflex Free T4 0.55 uIU/mL (0.32-4.0); Vitamin D 25-OH Total 28.5 ng/mL (>30)
[2024-10-17 12:59] LABS: Insulin 2 uU/mL (2-29)
[2024-10-17 13:18] LABS: Folate 13.9 ng/mL (> or = 4.0); Vitamin B12 253 pg/mL (200-900)
--- OUTSIDE RECORDS SUMMARY | 2024-10-17 13:25 | XMS_ITS | Patient Health Record ---
Author Organization [facility] Address [address] [place] [address] Care Team Providers Care Restaurant Management Internship Name Role Phone Stan Barrett Unavailable [phone] SUSAN FARNSWORTH Unavailable [phone] ALLERGIES Allergen (clinical drug ingredient) Drug/Non Drug Allergy documented on EMR Reaction Allergy Type Onset Date Status Shellfish (FN) Shellfish-derived Products Unknown Drug Allergy Active Substance with sulfonamide structure and antibacterial mechanism of action (substance) Sulfa Antibiotics Unknown Drug Allergy Active RESULTS Component Value Reference Range Notes URINALYSIS Reviewed date:03/17/2024 02:54:19 PM Interpretation: Performing Lab: Notes/Report: Note Original Ordering Provider: SUSAN FARNSWORTH NP [place], a member of [address] [address] Regional Education Manager - Rosa Espino MD GLUCOSE, (UA) NEGATIVE NEGATIVE mg/dL BILIRUBIN, URINE NEGATIVE NEGATIVE KETONE, URINE 15 NEGATIVE mg/dL SPECIFIC GRAVITY, URINE 1.028 1.003-1.030 BLOOD, URINE NEGATIVE NEGATIVE PH, URINE 6.0 5.0-8.0 PROTEIN, URINE TRACE <= TRACE mg/dl UROBILINOGEN, URINE 1.0 0.2-1.0 E.U./dL NITRITE, URINE NEGATIVE NEGATIVE LEUKOCYTE ESTERASE, URINE SMALL NEGATIVE Note Original Ordering Provider: SUSAN FARNSWORTH NP [employer], a member of [address] [address] Regional Education Manager - Rosa Espino MD GLYCOHEMOGLOBIN PROFILE Reviewed date:03/18/2024 07:48:04 AM Interpretation: Performing Lab: Notes/Report: GLYCATED HEMOGLOBIN A1C 4.9 <6.5 % ESTIMATED AVERAGE GLUCOSE 94 COMPREHENSIVE METABOLIC PANE L Reviewed date:03/18/2024 09:26:53 AM Interpretation: Performing Lab: Notes/Report: Note Original Orderi ng Provider: SUSAN FARNSWORTH [employer] GLUCOSE 84 70-100 mg/dL Reference range applicable to fasting specimens only BUN 10 5-25 mg/dL CREAT 0.60 0.5-1.1 mg/dL GLOMERULAR FILTRATION RATE 115 >60 This eGFR result was calculated using the CKD-EPI 2020 Creatinine Equation SODIUM 139 135-145 mEq/L POTASSIUM 4.0 3.5-5.5 mmol/L CHLORIDE 106 96-110 mmol/L CO2 26 21-32 mmol/L ANION GAP 7 3-11 CALCIUM 9.3 8.5-10.5 mg/dL TOTAL PROTEIN 7.1 6.0-8.0 G/dL ALBUMIN 4.1 3.2-5.0 G/dL BILI,TOTAL 0.9 0.0-1.4 mg/dL SGOT 22 10-42 U/L SGPT 36 10-60 U/L ALK PHOS 57 42-121 U/L CBC WITH AUTO DIFF Reviewed date:03/17/2024 01:31:50 PM Interpretation: Performing Lab: Notes/Report: WBC 5.0 4.8-10.8 x10-3/uL RBC 4.1 3.8-4.8 x10-6/uL HEMOGLOBIN 12.1 11.5-16.0 g/dL HEMATOCRIT 37.8 35-47 % MCV 91.5 79-98 fL MCH 29.3 27-32 pg MCHC 32.0 32-37 g/dL RDW 14.6 11-15 % PLT COUNT 229 130-400 x10-3/uL MEAN PLATELET VOLUME 11.0 7-11 fL NRBC % AUTO 0.0 <1 % NEUT % 50.3 LYMPH % 36.6 MONO % 9.1 EOS % 2.6 BASO % 1.2 IMMATURE GRANULOCYTES % 0.2 NRBC # AUTO 0.00 <0.1 x10-3/uL ABSOLUTE NEUT 2.49 1.5-7.0 x10-3/uL LYMPH # 1.81 1-5.0 x10-3/uL MONO # 0.45 0.2-1.0 x10-3/uL EOS # 0.13 0-0.5 x10-3/uL BASO # 0.06 0-0.2 x10-3/uL IMMATURE GRANULOCYTES # 0.01 0-0.03 x10-3/uL LIPID PROFILE Reviewed date:03/18/2024 09:26:53 AM Interpretation: Performing Lab: Notes/Report: CHOLESTEROL 178 0-200 mg/dL TRIGLYCERIDES 43 0-150 mg/dL TSH Reviewed date:03/18/2024 09:26:53 AM Interpretation: Performing Lab: Notes/Report: TSH 0.08 0.40-4.00 uIU/ml TOTAL T4 Reviewed date:03/18/2024 09:26:53 AM Interpretation: Performing Lab: Notes/Report: TOTAL T4 TNP 4.5-10.9 ug/dl Testing not performed Reason: SPECIMEN QNS FOR ADD ON T4 VIT D 1, 25-DIHYDROXY Reviewed date:03/21/2024 07:49:04 AM Interpretation: Performing Lab: Notes/Report: Note Original Ordering Provider: SUSAN FARNSWORTH NP [employer], [place] [address] Regional Education Manager - Rosa Espino MD VIT D,1,25-DIHYDROXY 89 20 - 79 pg/mL Vitamin D 1, 25 dihydroxy levels should be primarily used to assess Vitamin D status in patients with renal disease and hypercalcemia. Vitamin D 1,25-dihydroxy levels are generally less than 5 pg/mL in end stage renal disease patients. The preferred initial test for assessing Vitamin D status in the general population is Vitamin D 25-hydroxy (VITD). Test performed at [facility], [address] [place], [place] [id number] Spring Mays MD, PhD - Regional Education Manager Note Original Ordering Provider: SUSAN FARNSWORTH NP [employer], [place] [address] Regional Education Manager - Rosa Espino MD REASON FOR REFERRAL No Information MEDICATIONS Medication SIG (Take, Route, Frequency, Duration) Notes Start Date End Date Status Fluconazole 200 MG 1 tablet Orally once for 1 days 03/19/2024 Active Levothyroxine Sodium 150 MCG 1 capsule in the morning on an empty stomach Orally Once a day Active Candesartan Cilexetil-HCTZ 16-12.5 MG 1 tablet Orally Once a day for 90 days 03/06/2023 Not-Taking Candesartan Cilexetil-HCTZ 16-12.5 MG 1 tablet Orally Once a day Not-Taking Pantoprazole Sodium 40 MG 1 tablet Orall y Once a day for 90 days 03/19/2024 Active IMMUNIZATIONS Vaccine Route Administration Date Status Comme nts influenza IM Intramuscular 05/27/2021 Administered SOCIAL HISTORY Tobacco Use: Social History Observation Description Date Details (start date - stop date) Never Smoker NA - NA Sex Assigned At : Social History Observation Description Sex Assigned At Unknown Tobacco Use/Smoking Question Answer Notes Are you a nonsmoker Section Notes: She lives in the with her and three children. Denies smoking. Denies marijuana or illicit drugs. Occassional EtOH (socially) PROBLEMS Problem Type ICD Code Onset Dates Problem Status W/U Status Risk SNOMED Code Notes Problem Vitamin D deficiency , unspecified (E55.9) Active confirmed Vitamin D deficiency (62575592) Problem Essential (primary) hypertension (I10) Active confirmed 30851130 Problem Encounter for genera l adult medical examination without abnormal findings (Z00.00) Active confirmed 401124073 Problem Encounter for screening mammogram for malignant neoplasm of breast (Z12.31) Active confirmed 931917874 Problem Acquired hypothyroidism (E03.9) Active confirmed 641361129 Problem 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) Active confirmed 2488172 Problem Vitamin D deficiency (E55.9) Active confirmed 94002258 Problem Right foot pain (M79.671) Active confirmed 404173952011955 Problem Fatty liver (K76.0) Active confirmed Fa tty liver (876529325) Problem Pre-diabetes (R73.03) Active confirmed Prediabetes (841349400) Problem NANY (obstructive sle ep apnea) (G47.33) Active confirmed Obstructive sleep apnea syndrome (56039464) Problem Thyroid disorder (E07.9) Active confirmed Thyroid disorde r (27517361) Problem Paresthesia (R20.2) Active confirmed 91 858459 Problem Hyperlipemia, mixed (E78.2) Active confirmed Mixed hyperlipidemia (287588245) Problem Primary hypertension (I10) Active confirmed 84194016 Problem 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 Hurthle efe l carcinoma of thyroid (117633674) VITAL SIGNS Heart Rate 70 /min 03/19/2024 Blood pressure diastolic 84 mm Hg 03/19/2024 Oximetry 99 % 03/19/2024 Height 63 in 03/19/2024 Blood pressure systolic 120 mm Hg 03/19/2024 Weight 155 lbs 03/19/2024 BMI 27.45 kg/m2 03/19/2024 Encounters Encounter Location Date Provider Diagnosis [address] [facility] [address] [facility] [address] [place], [place] [facility] [place] [address] [facility] [address] [facility] [address] [place], [place] 03/19/2024 SUSAN FARNSWORTH Hurthle cell carcino ma of thyroid C73 ; Annual physical exam Z00.00 ; Paresthesia R20.2 ; Hyperlipemia, mixed E78.2 ; Thyroid disorder E07.9 ; Pre-diabetes R73.03 ; Essential (primary) hypertension I10 ; Candidiasis of vulva and vagina B37.31 and Encounter for screening mammogram for malignant neoplasm of breast Z12.[address] [facility] [place] [address] [facility] [address] 03/14/[address] [facility] [address] [facility] [address] 03/17/2024 SUSAN FARNSWORTH Acquired hyperlipoproteinemia E78.5 ; Acquired hypothyroidism E03.9 ; Encounter for general adult medical examination without abnormal findings Z00.00 and Vitamin D deficiency E55.[address] [facility] [place] [address] [facility] [address] 03/18/2024 SUSAN FARNSWORTH Acquired hypothyroid ism E03.9 [facility] [address] [place] [address] 03/19/2024 SUSAN FARNSWORTH [facility] [place] [address] [facility] [address] [facility]09/[address] [facility] [facility] [place] [address] 10/10/2024 SUSAN FARNSWORTH ASSESSMENTS Encounter Date Diagnosis Assessment Notes Treatment Notes Treatment Clinical Notes Section Notes 03/17/2024 Acquired hyperlipoproteinemia (ICD-10 - E78.5) 03/18/2024 Acquired hypothyroid ism (ICD-10 - E03.9) 03/19/2024 Annual physical exam (ICD-10 - Z00.00) Acute Concerns/Problem List: 03/19/2024 CPE Fluconazole 200 mg x 1 Pantoprazole 40 mg _update mammography Patient saw neurologist, wastewater analyst, and [place]rologist [place] All imaging returned unremarkable results Off of blood pressure medicines Thyroid stable Reviewed with patient the importance of medication and treatment plan compliance with BP goal of less then 140/90 per JNC 8 guidelines based on patient's age. This will ensure optimal health outcomes and prevent target organ damage. Made aware that uncontrolled hypertension may be silent and result in a stroke, heart attack, renal failure or even . Discussed the rationale for individualized medication regimen and the effects of their BP. Instructed to seek emergent care if the patient develops a headache, blurry vision, dizziness, chest pain or pressure. Of note, some information is being carried forward from prior records for informational purposes only and is being cited so that efficiency, safety and quality of the patient's care is not compromised This note was prepared using voice recognition software and direct typing Please excuse inadvertent tableau lead or typing errors, or uncorrected word substitutions Although every attempt has been made by the provider to proofread this document, occasional misspellings and typographical errors may still be present Due to the previous pandemic, and the use of personal protective equipment (PPE) This may decrease voice recognition accuracy Inadvertent tableau lead errors may occur 03/19/2024 Hurthle cell carcino ma of thyroid (ICD-10 - C73) Acute Concerns/Problem List: 03/19/2024 CPE Fluconazole 200 mg x 1 Pantoprazole 40 mg _update mammography Patient saw neurologist, wastewater analyst, and urologist [place] All imaging returned unremarkable results Off of blood pressure medicines Thyroid stable Reviewed with patient the importance of medication and treatment plan compliance with BP goal of less then 140/90 per JNC 8 guidelines based on patient's age. This will ensure optimal health outcomes and prevent target organ damage. Made aware that uncontrolled hypertension may be silent and result in a stroke, heart attack, renal failure or even . Discussed the rationale for individualized medication regimen and the effects of their BP. Instructed to seek emergent care if the patient develops a headache, blurry vision, dizziness, chest pain or pressure. Of note, some information is being carried forward from prior records for informational purposes only and is being cited so that efficiency, safety and quality of the patient's care is not compromised This note was prepared using voice recognition software and direct typing Please excuse inadvertent tableau lead or typing errors, or uncorrected word substitutions Although every attempt has been made by the provider to proofread this document, occasional misspellings and typographical errors may still be present Due to the previous pandemic, and the use of personal protective equipment (PPE) This may decrease voice recognition accuracy Inadvertent tableau lead errors may occur 03/19/2024 Paresthesia (ICD-10 - R20.2) Acute Concerns/Problem List: 03/19/2024 CPE Fluconazole 200 mg x 1 Pantoprazole 40 mg _update mammography Patient saw neurologist, wastewater analyst, and urologist [place] All imaging returned unremarkable results Off of blood pressure medicines Thyroid stable Reviewed with patient the importance of medication and treatment plan compliance with BP goal of less then 140/90 per JNC 8 guidelines based on patient's age. This will ensure optimal health outcomes and prevent target organ damage. Made aware that uncontrolled hypertension may be silent and result in a stroke, heart attack, renal failure or even . Discussed the rationale for individualized medication regimen and the effects of their BP. Instructed to seek emergent care if the patient develops a headache, blurry vision, dizziness, chest pain or pressure. Of note, some information is being carried forward from prior records for informational purposes only and is being cited so that efficiency, safety and quality of the patient's care is not compromised This note was prepared using voice recognition software and direct typing Please excuse inadvertent tableau lead or typing errors, or uncorrected word substitutions Although every attempt has been made by the provider to proofread this document, occasional misspellings and typographical errors may still be present Due to the previous pandemic, and the use of personal protective equipment (PPE) This may decrease voice recognition accuracy Inadvertent tableau lead errors may occur 03/17/2024 Acquired hypothyroid ism (ICD-10 - E03.9) 03/17/2024 Encounter for genera l adult medical examination without abnormal findings (ICD-10 - Z00.00) 03/19/2024 Hyperlipemia, mixed (ICD-10 - E78.2) Acute Concerns/Problem List: 03/19/2024 CPE Fluconazole 200 mg x 1 Pantoprazole 40 mg _update mammography Patient saw neurologist, wastewater analyst, and urologist [place] All imaging returned unremarkable results Off of blood pressure medicines Thyroid stable Reviewed with patient the importance of medication and treatment plan compliance with BP goal of less then 140/90 per JNC 8 guidelines based on patient's age. This will ensure optimal health outcomes and prevent target organ damage. Made aware that uncontrolled hypertension may be silent and result in a stroke, heart attack, renal failure or even . Discussed the rationale for individualized medication regimen and the effects of their BP. Instructed to seek emergent care if the patient develops a headache, blurry vision, dizziness, chest pain or pressure. Of note, some information is being carried forward from prior records for informational purposes only and is being cited so that efficiency, safety and quality of the patient's care is not compromised This note was prepared using voice recognition software and direct typing Please excuse inadvertent tableau lead or typing errors, or uncorrected word substitutions Although every attempt has been made by the provider to proofread this document, occasional misspellings and typographical errors may still be present Due to the previous pandemic, and the use of personal protective equipment (PPE) This may decrease voice recognition accuracy Inadvertent tableau lead errors may occur 03/19/2024 Thyroid disorder (ICD-10 - E07.9) Acute Concerns/Problem List: 03/19/2024 CPE Fluconazole 200 mg x 1 Pantoprazole 40 mg _update mammography Patient saw neurologist, wastewater analyst, and urologist in [place] All imaging returned unremarkable results Off of blood pressure medicines Thyroid stable Reviewed with patient the importance of medication and treatment plan compliance with BP goal of less then 140/90 per JNC 8 guidelines based on patient's age. This will ensure optimal health outcomes and prevent target organ damage. Made aware that uncontrolled hypertension may be silent and result in a stroke, heart attack, renal failure or even . Discussed the rationale for individualized medication regimen and the effects of their BP. Instructed to seek emergent care if the patient develops a headache, blurry vision, dizziness, chest pain or pressure. Of note, some information is being carried forward from prior records for informational purposes only and is being cited so that efficiency, safety and quality of the patient's care is not compromised This note was prepared using voice recognition software and direct typing Please excuse inadvertent tableau lead or typing errors, or uncorrected word substitutions Although every attempt has been made by the provider to proofread this document, occasional misspellings and typographical errors may still be present Due to the previous pandemic, and the use of personal protective equipment (PPE) This may decrease voice recognition accuracy Inadvertent tableau lead errors may occur 03/17/2024 Vitamin D deficiency (ICD-10 - E55.9) 03/19/2024 Pre-diabetes (ICD-10 - R73.03) Acute Concerns/Problem List: 03/19/2024 CPE Fluconazole 200 mg x 1 Pantoprazole 40 mg _update mammography Patient saw neurologist, wastewater analyst, and urologist in [place] All imaging returned unremarkable results Off of blood pressure medicines Thyroid stable Reviewed with patient the importance of medication and treatment plan compliance with BP goal of less then 140/90 per JNC 8 guidelines based on patient's age. This will ensure optimal health outcomes and prevent target organ damage. Made aware that uncontrolled hypertension may be silent and result in a stroke, heart attack, renal failure or even . Discussed the rationale for individualized medication regimen and the effects of their BP. Instructed to seek emergent care if the patient develops a headache, blurry vision, dizziness, chest pain or pressure. Of note, some information is being carried forward from prior records for informational purposes only and is being cited so that efficiency, safety and quality of the patient's care is not compromised This note was prepared using voice recognition software and direct typing Please excuse inadvertent tableau lead or typing errors, or uncorrected word substitutions Although every attempt has been made by the provider to proofread this document, occasional misspellings and typographical errors may still be present Due to the previous pandemic, and the use of personal protective equipment (PPE) This may decrease voice recognition accuracy Inadvertent tableau lead errors may occur 03/19/2024 Essential (primary) hypertension (ICD-10 - I10) Acute Concerns/Problem List: 03/19/2024 CPE Fluconazole 200 mg x 1 Pantoprazole 40 mg _update mammography Patient saw neurologist, wastewater analyst, and urologist in the [place] All imaging returned unremarkable results Off of blood pressure medicines Thyroid stable Reviewed with patient the importance of medication and treatment plan compliance with BP goal of less then 140/90 per JNC 8 guidelines based on patient's age. This will ensure optimal health outcomes and prevent target organ damage. Made aware that uncontrolled hypertension may be silent and result in a stroke, heart attack, renal failure or even . Discussed the rationale for individualized medication regimen and the effects of their BP. Instructed to seek emergent care if the patient develops a headache, blurry vision, dizziness, chest pain or pressure. Of note, some information is being carried forward from prior records for informational purposes only and is being cited so that efficiency, safety and quality of the patient's care is not compromised This note was prepared using voice recognition software and direct typing Please excuse inadvertent tableau lead or typing errors, or uncorrected word substitutions Although every attempt has been made by the provider to proofread this document, occasional misspellings and typographical errors may still be present Due to the previous pandemic, and the use of personal protective equipment (PPE) This may decrease voice recognition accuracy Inadvertent tableau lead errors may occur 03/19/2024 Candidiasis of vulva and vagina (ICD-10 - B37.31) Acute Concerns/Problem List: 03/19/2024 CPE Fluconazole 200 mg x 1 Pantoprazole 40 mg _update mammography Patient saw neurologist, wastewater analyst, and urologist [place] All imaging returned unremarkable results Off of blood pressure medicines Thyroid stable Reviewed with patient the importance of medication and treatment plan compliance with BP goal of less then 140/90 per JNC 8 guidelines based on patient's age. This will ensure optimal health outcomes and prevent target organ damage. Made aware that uncontrolled hypertension may be silent and result in a stroke, heart attack, renal failure or even . Discussed the rationale for individualized medication regimen and the effects of their BP. Instructed to seek emergent care if the patient develops a headache, blurry vision, dizziness, chest pain or pressure. Of note, some information is being carried forward from prior records for informational purposes only and is being cited so that efficiency, safety and quality of the patient's care is not compromised This note was prepared using voice recognition software and direct typing Please excuse inadvertent tableau lead or typing errors, or uncorrected word substitutions Although every attempt has been made by the provider to proofread this document, occasional misspellings and typographical errors may still be present Due to the previous pandemic, and the use of personal protective equipment (PPE) This may decrease voice recognition accuracy Inadvertent tableau lead errors may occur 03/19/2024 Encounter for screen ing mammogram for malignant neoplasm of breast (ICD-10 - Z12.31) Acute Concerns/Problem List: 03/19/2024 CPE Fluconazole 200 mg x 1 Pantoprazole 40 mg _update mammography Patient saw neurologist, wastewater analyst, and urologist in the [place] All imaging returned unremarkable results Off of blood pressure medicines Thyroid stable Reviewed with patient the importance of medication and treatment plan compliance with BP goal of less then 140/90 per JNC 8 guidelines based on patient's age. This will ensure optimal health outcomes and prevent target organ damage. Made aware that uncontrolled hypertension may be silent and result in a stroke, heart attack, renal failure or even . Discussed the rationale for individualized medication regimen and the effects of their BP. Instructed to seek emergent care if the patient develops a headache, blurry vision, dizziness, chest pain or pressure. Of note, some information is being carried forward from prior records for informational purposes only and is being cited so that efficiency, safety and quality of the patient's care is not compromised This note was prepared using voice recognition software and direct typing Please excuse inadvertent tableau lead or typing errors, or uncorrected word substitutions Although every attempt has been made by the provider to proofread this document, occasional misspellings and typographical errors may still be present Due to the previous pandemic, and the use of personal protective equipment (PPE) This may decrease voice recognition accuracy Inadvertent tableau lead errors may occur PLAN OF TREATMENT Pending Test Test Name Order Date Mammogram 03/19/2024 HSV 1 and 2-Specific Ab, IgG 10/04/2022 25OH VITAMIN D 03/06/2023 CBC (COMPLETE BLOOD COUNT) 03/06/2023 CBC (COMPLETE BLOOD COUNT) WITH DIFF COMPREHENSIVE METABOLIC PANEL 03/17/2024 COMPREHENSIVE METABOLIC PANEL 03/06/2023 HEMOGLOBIN A1C 03/06/2023 LIPID PANEL 03/06/2023 LIPID PANEL 03/17/2024 T4, TOTAL 03/18/2024 TSH WITH REFLEX TO FT4 03/06/2023 XR Foot 2 Views RT 01/24/2022 LIPID PANEL, STANDARD 05/05/2021 LIPID PANEL, STANDARD 09/05/2022 COMPREHENSIVE METABOLIC PANEL 09/05/2022 COMPREHENSIVE METABOLIC PANEL 05/05/2021 MAGNESIUM 10/16/2022 PHOSPHATE ( PHOSPHORUS) 10/16/2022 CBC (INCLUDES DIFF/PLT) 05/05/2021 CBC (INCLUDES DIFF/PLT) 09/05/2022 URINALYSIS, COMPLETE 09/05/2022 URINALYSIS, COMPLETE 03/17/2024 HEMOGLOBIN A1c 03/17/2024 HEMOGLOBIN A1c 05/05/2021 INSULIN 05/05/2021 VITAMIN B12 10/16/2022 T4, FREE 05/05/2021 TSH 05/05/2021 TSH 03/17/2024 TSH 09/05/2022 VITAMIN D,25-OH,TOTAL,IA 09/05/2022 HEL[employer]ER PYLORI AG, EIA, STOOL 05/05 HELICOBA[employer] PYLORI, UREA BREATH TEST VITAMIN D, 1,25 DIHYDROXY LC/MS/MS 03/17 COMPLETE URINALYSIS 03/06/2023 Insurance Providers Payer Name Payer Address Payer Phone Subscriber Number Group Number Insured Name Patient Relationship to Insured Coverage Start Date Coverage End Date [facility] [address] [place] [address] [id number] OPAL STONER Self - patient is the insured 2 MEDICAL (GENERAL) HISTORY Medical History History ICD Code Cancer Gallbladder disease Liver disease Thyroid disease Surgical History Surgery Date(Month/Year) thyroidectomy 2020
--- OUTSIDE RECORDS SUMMARY | 2024-10-17 13:25 | XMS_ITS | Clinical Summary ---
Author Organization [facility] ity Address [address] [place] [address] Care Team Providers Care Licensed Physical Therapy Assistant Name Role Phone Payton Martinez NP Primary Care Provider [phone] Surgical History Surgery Date Site/Laterality Comments SECTION PROCEDURE: [place] DELIVERY ONLY CHOLECYSTECTOMY 2012 PROCEDURE: [place] LAPAROSCOPY SURG CHOLECYSTECTOMY; COMMENT: [facility] Medical History Date Comments Anemia DX:Anemia Abdominal pain DX:Abdominal yolanda n History of thyroid cancer DX:His tory of thyroid cancer Abdominal bloating DX:Abdominal bloating Gassiness DX:Gassiness HTN (hypertension) 03/05/2023 DX:HTN (hyper tension) Family History Medical History Relation Name Comments Diabetes Father Hypertension Father Hypertension Mother Stroke Paternal Grandfather Relation Name Status Comments Father Mother Paternal Grandfather Social History Tobacco Use Types Packs/Day Years Used Date Smoking Tobacco: Never Smokeless Tobacco: Never Alcohol Use Standard Drinks/Week Comments Yes 0 (1 standard drink = 0.6 oz pur e alcohol) Comments Unknown Sex and Gender Information Value Date Recorded Sex Assigned at Not on file Legal Sex Female 2:14 PM EST Gender Identity Not on file Sexual Orientation Not on file Obstetrics History Last Filed Vital Signs Vital Sign Reading Time Taken Comments Blood Pressure 102/62 03/12/2023 8:18 AM EDT Sit ting L Arm Pulse 73 03/12/2023 8:18 AM EDT Temperature - - Respiratory Rate - - Oxygen Saturation - - Inhaled Oxygen Concentration - - Weight 93 kg (205 lb) 03/12/2023 8:18 AM EDT Height 165.1 cm (5' 5 ) 03/12/2023 8:18 AM EDT Body Mass Index 34.11 03/12/2023 8:18 AM EDT Plan of Treatment Health Maintenance Due Date Last Done Comments Breast Cancer Screening 1981 Hepatitis B Vaccines (1 of 3 - 19+ 3-dose series) 2000 Cervical Cancer Screening: P ap Smear 2002 Cholesterol Screening (Lipid Panel) 07/19/2022 Depression Screening 07/19/2022 HIV Screening 07/19/2022 Hepatitis C Screening 07/19/2022 Social Influencers of Health Screening 07/19/2022 Hypertension/CHF/CAD Annual BMP Blood Test 09/18/2023 COVID-19 Vaccine (1 - 2023-2 5 season) 2024 Influenza Vaccine (#1) 2024 DTaP,Tdap,and Td Vaccines (2 - Td or Tdap) 09/27/2027 09/27/2017 HIB Vaccines Aged Out No longer eligi ble based on patient's age to complete this topic HPV Vaccines Aged Out No longer eligi ble based on patient's age to complete this topic Hepatitis A Vaccines Aged Out No long er eligible based on patient's age to complete this topic IPV Vaccines Aged Out No longer eligi ble based on patient's age to complete this topic MMR Vaccines Aged Out No longer eligi ble based on patient's age to complete this topic Meningococcal ACWY Vaccine Aged Out N o longer eligible based on patient's age to complete this topic Meningococcal B Vacine Aged Out No lo nger eligible based on patient's age to complete this topic Pneumococcal Vaccine: Pediat rics (0 to 5 Years) and At-Risk Patients (6 to 64 Years) Aged Out No longer eligi ble based on patient's age to complete this topic RSV Immunization Patients Un hussein 20 months Aged Out No longer eligible b ased on patient's age to complete this topic Varicella Vaccines Aged Out No longer eligible based on patient's age to complete this topic Care Teams Licensed Physical Therapy Assistant Relationship Specialty Start Date End Date Payton Martinez NP PCP - General 06/23/21
--- OUTSIDE RECORDS SUMMARY | 2024-10-17 13:25 | XMS_ITS ---
Author Organization [email or web address] Address [address] [place] [address] Care Team Providers Care Lockstitch Lining Setter Name Role Phone Stan Barrett Unavailable SUSAN FARNSWORTH Unavailable [phone] REASON FOR VISIT urgent Encounters Encounter Location Date Provider Diagnosis [facility] [address] [facility] [address] [facility] [address] [place] [address] 10/10/2024 SUSAN FARNSWORTH PLAN OF TREATMENT No Information Progress Notes * OPAL STONERDOB: [birth year] (44 yo F)Acc No.[id number]:10/10/2024 Patient:??OPAL STONER :1980?Age:44 Y?Sex:Fe male Address:[address] [place] [address] * true * Date:??
--- OUTSIDE RECORDS SUMMARY | 2024-10-17 13:25 | XMS_ITS ---
Author Organization [facility] Address [address] [place] [address] Care Team Providers Care Brain Wave Technician Name Role Phone Stan Barrett Unavailable SUSAN FARNSWORTH Unavailable [phone] REASON FOR VISIT appt Encounters Encounter Location Date Provider Diagnosis [facility] [address] [facility] [address] [place] [address] 10/09/2024 SUSAN FARNSWORTH PLAN OF TREATMENT No Information Progress Notes * OPAL STONERDOB: [birth year] (44 yo F)Acc No.[id number]:10/09/2024 Patient:??OPAL STONER :1980?Age:44 Y?Sex:Fe male Address:[address] [place] [address] * true * Date:??
--- OUTSIDE RECORDS SUMMARY | 2024-10-17 13:25 | XMS_ITS | Clinical Summary ---
Author Organization [facility] Facility Address [address] [place] [address], [place] [address] Care Team Providers Care Class B Truck Driver Name Role Phone Payton Martinez NP Primary Care Provider Allergies Active Allergy Reactions Criticality Noted Date Comments Shellfish-Derived Products Other (see comments) 10/16/2022 Sulfa Antibiotics 03/01/2023 Medications hydroCHLOROthiaz rhonda (MICROZIDE) 12.5 MG capsule 1 (one) time each day Active levothyroxine (SYNTHROID, LEVOTHROID) 150 MCG tablet 1 (one) time each day Active losartan (COZAAR) 25 MG tablet Take 1 tablet by mouth 10/16/2022 Active omeprazole (PriLOSEC) [address] capsule 1 (one) time each day Active Active Problems Problem Noted Date Diagnosed Date Fatty liver 03/01/2023 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 Obstructive sleep apnea syndrome 03/01/2023 Pain in right foot 03/01/2023 Paresthesia 03/01/2023 Primary hypertension 03/01/2023 Vitamin D deficiency 03/01/2023 Immunizations Name Administration Dates Next Due Influenza, Unspecified 05/27/2021 Social History Tobacco Use Types Packs/Day Years Used Date Smoking Tobacco: Never Assessed Comments Unknown Sex and Gender Information Value Date Recorded Sex Assigned at Not on file Legal Sex Female 8:48 AM EST Gender Identity Not on file Sexual Orientation Not on file Plan of Treatment Health Maintenance Due Date Last Done Comments Pneumococcal Vaccine: Pediat rics (0 to 5 Years) and At-Risk Patients (6 to 64 Years) (1 of 2 - PCV) 1987 Hepatitis B Vaccine (1 of 3 - 19+ 3-dose series) 05/22 Influenza Vaccine (#1) 2024 05/27/2021 Insurance [facility] Care Teams Class B Truck Driver Relationship Specialty Start Date End Date Payton Martinez NP [address] [place] [address] PCP - General Nurse Practitioner 10/19/22
--- OUTSIDE RECORDS SUMMARY | 2024-10-17 13:25 | XMS_ITS ---
Author Organization [facility] Address [address] [place] [address] Care Team Providers Care Director Of Individual Giving Name Role Phone ArnoldJyothikerri Unavailable SUSAN FARNSWORTH Unavailable [phone] REASON FOR VISIT rx request Encounters Encounter Location Date Provider Diagnosis [facility] [address] [place] [address] 03/19/2024 SUSAN FARNSWORTH PLAN OF TREATMENT No Information Progress Notes * OPAL STONERDOB: [birth year] (43 yo F)Acc No.[id number]:03/19/2024 Patient:??OPAL STONER :1980?Age:43 Y?Sex:Fe male Address:[address] [place] [address] * true * Date:??
[2024-10-20 22:38] LABS: Zinc 64 mcg/dL (60-130)
[2024-10-21 11:38] LABS: Vitamin A 32 mcg/dL (38-98)
[2024-10-24 15:08] LABS: Vitamin B1 11 nmol/L (8-30)
== END 2024-10-17 11:19 | disposition home or self-care (01) ==
LOC: HO.LAB 11:18
PROVIDERS: PCP Nurse Practitioner Acute Care; Visit Provider Physician Assistant Surgical
DX: C73 Malignant neoplasm of thyroid gland (principal); I10 Essential (primary) hypertension; K74.00 Hepatic fibrosis, unspecified; E50.9 Vitamin A deficiency, unspecified; E53.8 Deficiency of other specified B group vitamins; E55.9 Vitamin D deficiency, unspecified; Z68.28 Body mass index [BMI] 28.0-28.9, adult; Z90.3 Acquired absence of stomach [part of]
CPT/HCPCS: 36415; 80053; 80061; 82306; 82607; 82728; 82746; 83036; 83525; 83540; 84425; 84443; 84590; 84630; 85025; 86140

== ENCOUNTER 2024-10-17 11:42 | Outpatient (AMB) | payer OTHER, SELFPAY ==
[2024-10-17 11:43] VITALS: BP 140/88; PULSE 71; TEMP 36.6; O2SAT 100; BMI 28.0
--- NOTE | 2024-10-17 11:43 | A.OFFVIS_ITS ---
VS Expanded 10/17/24 11:43 BP 140/88 H Blood Pressure Location Lt brachial Blood Pressure Position Sitting Pulse 71 Pulse Source Pulse Oximeter Temp 97.9 F Temperature Source Temporal Artery Scan Pulse Oximetry 100 Oxygen Delivery Method Room Air Height 5 ft 2 in Weight 153 lb 2 oz BMI 28.0 Body Fat % 26.5 Body Fat Mass 40.6 Fat Free Mass 112.4 Visceral Fat Rating 5.0 Body Water % 52.4 Body Water Mass 80.2 Muscle Mass/Score 106.8 Basal Metabolic Rate/Score 1,500 Intake Visit Reasons: (OV) PO LSG 08/14/23 Intake Note: (ov) Po LSG 08/14/23 Shotgun Shell Reprinting Unit Operator Required: No Allergies shellfish derived Adverse Reaction (Severe, Verified 08/21/23 11:05) Facial Swelling Sulfa (Sulfonamide Antibiotics) Adverse Reaction (Intermediate, Verified 08/21/23 11:05) Itching Medication List - Last Reconciled 10/17/24 by RIANNA Christopher levothyroxine 150 mcg PO .6 d bnejhzticdfp-ssv-mnzx-FA-vit K 45 mg iron- 800 mcg-120 mcg (Bariatric Multivitamins) caps PO vitamin A palmitate 3,000 mcg PO DAILY HPI Comments Details: This?a?44?yo female who is s/p LSG without hiatal hernia repair on?08/14/2023. Presents for 1 year 2 month post op visit. Weight today is 153 pounds, with a BMI of 28. There has been a 57.2 pound weight loss,(initial weight 210.4 pounds) since starting the program on 05/18/2023 reflecting a 27.1 % total body weight loss and a weight loss of 33.8 pounds since surgery (operative weight 187 pounds) reflecting a 18 % TBWL since surgery. No complaints of nausea, emesis, abdominal pain or reflux. Reports infrequent but normal bowel movements every 1- 2 days. She states she has been weight training and she thinks her weight gain is from that. She isn't following the plans. taking celebrate MVI. Training for bodybuilding competition. Now under the care of diesel automotive technician or wrinkle chaser. Feels great overall. Material Control Associate is Dr Ladi Kinney and she has low TSH intentionally due to hx of thyroid ca and per pt, endocrine is aware of low levels. She states she has not followed the meal plan and eating typically twice a day. She got 1 year postop labs drawn today. Results are currently pending. She states that she underwent abdominoplasty, breast lift and reconstructive surgery performed in the [place] 07/29/2023. At that time, she was found to have umbilical and ventral hernia, both repaired with mesh at the time of the procedure. Present meal plan includes: eggs and sausage and avocado protein and salad or rice (small portions) Sometimes fresh coconut, watermelon, berries ? Exercise routine includes: 30-40 hours weight training, 6 days, 60 minutes of cardio 5 days 5k run 1 day per week. Any post op complications: none NANY: never DM: never HTN: resolved Hyperlipidemia: never GERD:?0-5 scale ??0 = no symptoms ??1 = symptoms noticeable but not bothersome 2 =symptoms bothersome but not daily ? 3 = symptoms bothersome and daily 4 = symptoms affect daily activities 5 = symptoms are incapacitating, unable to do daily activities ? How bad is the heartburn: 2 ? Heartburn while lying down: 0 ? Heartburn when standing up: 0 ? Heartburn after meals: 0 ? Does heartburn change your diet: 1 ? Does heartburn wake you up from sleep: 0 ? Do you have difficulty swallowin ? Do you have pain with swallowin ? If you take medicine for your reflux, does this affect your daily life: 0 Satisfaction with present condition - satisfied or not satisfied: satisfied [facility] Medical History Primary thyroid cancer Hypothyroidism Hypertension Surgical History S/P breast augmentation S/P abdominoplasty H/O total thyroidectomy History of surgical removal of ganglion cyst Hx of colonoscopy Hx of cholecystectomy Hx of section Family History Mother Sleep apnea Hypertension Hypothyroid Father Hypertension Social History Household Members: Family Housing: House Do you presently have visiting nurse or other home services: No Alcohol intake: current Alcohol intake frequency: holidays/special occasions only Patient Tobacco Use Status: Never used Tobacco service: No Physical Exam Const General: cooperative and no acute distress Orientation/consciousness: patient oriented x3 Resp Effort & Inspection: normal respiratory effort Auscultation: clear to auscultation bilaterally Cardio Rate: regular rate Rhythm: regular rhythm GI Inspection: Yes normal to inspection and Yes incision (well healed) Palpation (GI): Soft to palpation and no masses Neuro General: patient oriented x3 Assessment & Plan Assessment & Plan (1) S/P laparoscopic sleeve gastrectomy: Code(s): Z98.84 - Bariatric surgery status Category: Surgical Plan: Patient has done very well. She is now training for body building competition and goal will be a proximally 70 g of protein per day. We will recommend meal plan: Two eggs with vegetables isopure shake 1 scoop Meal with 6 forks of protein and 6 forks of vegetables Another shake with half scoop She did get 1 year postop labs done today. They are pending at the time of this dictation. She continues on multivitamin. Return to the office as scheduled. Encouraged to continue to text with any questions or concerns as well as sending her weights
--- OUTSIDE RECORDS SUMMARY | 2024-10-17 14:01 | XMS_ITS | Clinical Summary ---
Author Organization [facility] ity Address [address] [place] [address] Care Team Providers Care Cloth Boil Off Machine Operator Name Role Phone Payton Martinez NP Primary Care Provider [phone] Surgical History Surgery Date Site/Laterality Comments SECTION PROCEDURE: [place] DELIVERY ONLY CHOLECYSTECTOMY 2012 PROCEDURE: [place] LAPAROSCOPY SURG CHOLECYSTECTOMY; COMMENT: [facility] [...] age to complete this topic Care Teams Cloth Boil Off Machine Operator Relationship Specialty Start Date End Date Payton Martinez NP PCP - General 06/23/21
--- OUTSIDE RECORDS SUMMARY | 2024-10-17 14:01 | XMS_ITS | Clinical Summary ---
Author Organization [facility] Facility Address [address] [place] [address], [place] [address] Care Team Providers Care Plastic Battery Assembler Name Role Phone Payton Martinez NP Primary Care Provider [phone] Allergies Active Allergy Reactions Criticality Noted Date [...] 05/22 Influenza Vaccine (#1) 2024 05/27/2021 Insurance [facility] Care Teams Plastic Battery Assembler Relationship Specialty Start Date End Date Payton Martinez NP [address] [place] [address] PCP - General Nurse Practitioner 10/19/22
== END 2024-10-17 12:13 | disposition home or self-care (01) ==
PROVIDERS: PCP Nurse Practitioner Acute Care; Visit Provider Physician Assistant Surgical
DX: E66.3 Overweight (principal); Z68.28 Body mass index [BMI] 28.0-28.9, adult; Z90.3 Acquired absence of stomach [part of]; Z98.84 Bariatric surgery status
CPT/HCPCS: 99214

== ENCOUNTER 2025-01-23 09:00 | Outpatient (AMB) | payer OTHER, SELFPAY ==
--- NOTE | 2025-01-23 08:45 | A.OFFVIS_ITS ---
VS Expanded 01/23/25 08:46 Height 5 ft 2 in Weight 154 lb 5 oz BMI 28.2 Body Fat % 21.3 Fat Free Mass 121.6 Visceral Fat Rating 8 Body Water % 53.9 Muscle Mass/Score 114.1 Basal Metabolic Rate/Score 1,552 Intake Visit Reasons: (TV) PO LSG 08/14/23 Professor Of Biochemistry Required: No Allergies shellfish derived Adverse Reaction (Severe, Verified 08/21/23 11:05) Facial Swelling Sulfa (Sulfonamide Antibiotics) Adverse Reaction (Intermediate, Verified 08/21/23 11:05) Itching Medication List - Last Reconciled 01/23/25 by RIANNA Christopher levothyroxine 150 mcg PO .6 d xfglodxsizrs-nzo-mlmp-FA-vit K 45 mg iron- 800 mcg-120 mcg (Bariatric Multivitamins) caps PO vitamin A palmitate 3,000 mcg PO DAILY HPI Comments Details: This?a?44?yo female who is s/p LSG without hiatal hernia repair on?08/14/2023. Presents for 1 year 6 month post op visit. Weight today is 154.5 pounds, with a BMI of 28.2. There has been a 55.9 pound weight loss,(initial weight 210.4 pounds) since starting the program on 05/18/2023 reflecting a 26.5 % total body weight loss and a weight loss of 32.5 pounds since surgery (operative weight 187 pounds) reflecting a 17.3 % TBWL since surgery. No complaints of nausea, emesis, abdominal pain or reflux. Reports infrequent but normal bowel movements every 1-2 days. She states she has been weight training and she thinks her weight gain is from that. She isn't following the plans. taking celebrate MVI. Training for bodybuilding competition. Now under the care of paint mixer hand or cistern room working supervisor. Feels great overall. Post Framer is Dr Ladi Kinney and she has low TSH intentionally due to hx of thyroid ca and per pt, endocrine is aware of low levels. She got 1 year postop labs drawn today. Results are currently pending. She states that she underwent abdominoplasty, breast lift and reconstructive surgery performed in the [place] 07/29/2023. At that time, she was found to have umbilical and ventral hernia, both repaired with mesh at the time of the procedure. Present meal plan includes: 9 am 2 eggs w veg 1 pm Isopure shake 1 scoop 4 pm meal with 6 forks protein and 6 forks veg 6 pm 1/2 scoop isopure ? Exercise routine includes: weight training cardio Active body building training Any post op complications: none NANY: never DM: never HTN: resolved Hyperlipidemia: never GERD:?0-5 scale ??0 = no symptoms ??1 = symptoms noticeable but not bothersome 2 =symptoms bothersome but not daily ? 3 = symptoms bothersome and daily 4 = symptoms affect daily activities 5 = symptoms are incapacitating, unable to do daily activities ? How bad is the heartburn: 0 ? Heartburn while lying down: 0 ? Heartburn when standing up: 0 ? Heartburn after meals: 0 ? Does heartburn change your diet: 0 ? Does heartburn wake you up from sleep: 0 ? Do you have difficulty swallowin ? Do you have pain with swallowin ? If you take medicine for your reflux, does this affect your daily life: 0 Satisfaction with present condition - satisfied or not satisfied: satisfied [facility] Medical History Primary thyroid cancer Hypothyroidism Hypertension Surgical History S/P breast augmentation S/P abdominoplasty H/O total thyroidectomy History of surgical removal of ganglion cyst Hx of colonoscopy Hx of cholecystectomy Hx of section Family History Mother Sleep apnea Hypertension Hypothyroid Father Hypertension Social History Household Members: Family Housing: House Do you presently have visiting nurse or other home services: No Alcohol intake: current Alcohol intake frequency: holidays/special occasions only Patient Tobacco Use Status: Never used Tobacco service: No Telehealth Telehealth Telehealth Platform: Telephone Location of provider rendering services: practice address Location of patient: address on file Patient Identification confirmed using: Name, : Yes Telehealth method: voice only Patient verbally consented to treatment: Yes Patient verbally consented to billing insurance company: Yes Patient informed of any privacy concerns related to visit: Yes Minutes spent on Phone/Video with Pt.: 15 Assessment & Plan Assessment & Plan (1) S/P laparoscopic sleeve gastrectomy: Code(s): Z98.84 - Bariatric surgery status Category: Surgical Plan: Patient has done very well. 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 Only recommendation is to increase cardio slightly. We will check 18 month postop labs. Encouraged to send weight is and text with any questions or concerns. Plan for return to clinic 2 months. Orders: Orders Hemoglobin A1c Today E03.9 - Hypothyroidism, unspecified, E50.9 - Vitamin A deficiency, unspecified, E53.8 - Deficiency of other specified B group vitamins, E55.9 - Vitamin D deficiency, unspecified, I10 - Essential (primary) hypertension, Z98.84 - Bariatric surgery status Complete Blood Count Auto Diff Today E03.9 - Hypothyroidism, unspecified, E50.9 - Vitamin A deficiency, unspecified, E53.8 - Deficiency of other specified B group vitamins, E55.9 - Vitamin D deficiency, unspecified, I10 - Essential (primary) hypertension, Z98.84 - Bariatric surgery status Lipid Panel Today E03.9 - Hypothyroidism, unspecified, E50.9 - Vitamin A deficiency, unspecified, E53.8 - Deficiency of other specified B group vitamins, E55.9 - Vitamin D deficiency, unspecified, I10 - Essential (primary) hypertension, Z98.84 - Bariatric surgery status IRON PROFILE Today E03.9 - Hypothyroidism, unspecified, E50.9 - Vitamin A deficiency, unspecified, E53.8 - Deficiency of other specified B group vitamins, E55.9 - Vitamin D deficiency, unspecified, I10 - Essential (primary) hypertension, Z98.84 - Bariatric surgery status Vitamin B12 and Folate Today E03.9 - Hypothyroidism, unspecified, E50.9 - Vitamin A deficiency, unspecified, E53.8 - Deficiency of other specified B group vitamins, E55.9 - Vitamin D deficiency, unspecified, I10 - Essential (primary) hypertension, Z98.84 - Bariatric surgery status Zinc Today E03.9 - Hypothyroidism, unspecified, E50.9 - Vitamin A deficiency, unspecified, E53.8 - Deficiency of other specified B group vitamins, E55.9 - Vi tamin D deficiency, unspecified, I10 - Essential (primary) hypertension, Z98.84 - Bariatric surgery status Vitamin B1 Today E03.9 - Hypothyroidism, unspecified, E50.9 - Vitamin A deficiency, unspecified, E53.8 - Deficiency of other specified B group vitamins, E55.9 - Vitamin D deficiency, unspecified, I10 - Essential (primary) hypertension, Z98.84 - Bariatric surgery status Insulin Today E03.9 - Hypothyroidism, unspecified, E50.9 - Vitamin A deficiency, unspecified, E53.8 - Deficiency of other specified B group vitamins, E55.9 - Vitamin D deficiency, unspecified, I10 - Essential (primary) hypertension, Z98.84 - Bariatric surgery status Comprehensive Met. Panel Today E03.9 - Hypothyroidism, unspecified, E50.9 - Vitamin A deficiency, unspecified, E53.8 - Deficiency of other specified B group vitamins, E55.9 - Vitamin D deficiency, unspecified, I10 - Essential (primary) hypertension, Z98.84 - Bariatric surgery status C Reactive Protein Today E03.9 - Hypothyroidism, unspecified, E50.9 - Vitamin A deficiency, unspecified, E53.8 - Deficiency of other specified B group vitamins, E55.9 - Vitamin D deficiency, unspecified, I10 - Essential (primary) hypertension, Z98.84 - Bariatric surgery status Vitamin A Today E03.9 - Hypothyroidism, unspecified, E50.9 - Vitamin A deficiency, unspecified, E53.8 - Deficiency of other specified B group vitamins, E55.9 - Vitamin D deficiency, unspecified, I10 - Essential (primary) hypertension, Z98.84 - Bariatric surgery status TSH reflex Free T4 Today E03.9 - Hypothyroidism, unspecified, E50.9 - Vitamin A deficiency, unspecified, E53.8 - Deficiency of other specified B group vitamins, E55.9 - Vitamin D deficiency, unspecified, I10 - Essential (primary) hypertension, Z98.84 - Bariatric surgery status Ferritin Today E03.9 - Hypothyroidism, unspecified, E50.9 - Vitamin A deficiency, unspecified, E53.8 - Deficiency of other specified B group vitamins, E55.9 - Vitamin D deficiency, unspecified, I10 - Essential (primary) hypertension, Z98.84 - Bariatric surgery status Vitamin D 25-OH Total Today E03.9 - Hypothyroidism, unspecified, E50.9 - Vitamin A deficiency, unspecified, E53.8 - Deficiency of other specified B group vitamins, E55.9 - Vitamin D deficiency, unspecified, I10 - Essential (primary) hypertension, Z98.84 - Bariatric surgery status
[2025-01-23 08:46] VITALS: BMI 28.2
--- OUTSIDE RECORDS SUMMARY | 2025-01-23 09:24 | XMS_ITS | Clinical Summary ---
Author Organization [facility] Facility Address [address] [place] [address], [place] [address] Care Team Providers Care Hospital Admissions Officer Name Role Phone Payton Martinez NP Primary Care Provider [phone] Allergies Active Allergy Reactions Criticality Noted Date [...] hypertension 03/01/2023 Vitamin D deficiency 03/01/2023 Immunizations Immunization Administration Dates Next Due Influenza, Unspecified 05/27/2021 Social History Tobacco Use Types Packs/Day Years Used Date Smoking Tobacco: Never Assessed Comments Unknown Sex and Gender Information Value Date Recorded Sex Assigned at Not on file Legal Sex Female 8:48 AM EST Gender Identity Not on file Sexual Orientation Not on file Plan of Treatment Health Maintenance Due Date Last Done Comments Hepatitis B Vaccine (1 of 3 - 19+ 3-dose series) 05/22 Pneumococcal Vaccine: Peds ( 0 to 5 Years) and At-Risk Patients (6 to 49 Years) (1 of 2 - PCV) 2000 Influenza Vaccine (Season Ended) 2025 05/27/20 21 Insurance [facility] Care Teams Hospital Admissions Officer Relationship Specialty Start Date End Date Payton Martinez NP [address] [place] [address] PCP - General Nurse Practitioner 10/19/22
== END 2025-01-23 09:25 | disposition home or self-care (01) ==
LOC: HO.HBS 09:02
PROVIDERS: PCP Nurse Practitioner Acute Care; Visit Provider Physician Assistant Surgical
DX: E66.3 Overweight (principal); Z68.28 Body mass index [BMI] 28.0-28.9, adult; Z90.3 Acquired absence of stomach [part of]; Z98.84 Bariatric surgery status
CPT/HCPCS: 99213

== ENCOUNTER 2025-02-06 12:12 | Outpatient (REF) | payer OTHER, SELFPAY ==
--- OUTSIDE RECORDS SUMMARY | 2025-02-06 12:16 | XMS_ITS | Clinical Summary ---
Author Organization [facility] Facility Address [address] [place] [address], [place] [address] Care Team Providers Care Primer Inserting Machine Adjuster Name Role Phone Payton Martinez NP Primary Care Provider [phone] Allergies Active Allergy Reactions Criticality Noted Date [...] Vaccine (Season Ended) 2025 05/27/20 21 Insurance [facility] Care Teams Primer Inserting Machine Adjuster Relationship Specialty Start Date End Date Payton Martinez NP [address] [place] [address] PCP - General Nurse Practitioner 10/19/22
[2025-02-06 12:39] LABS: MANUAL DIFF FLAG NO
[2025-02-06 13:21] LABS: Basophils Absolute Auto 0.1 X10*3/uL (0.0-0.2); Basophils Percent Auto 0.9 % (0-2); Eosinophils Absolute Auto 0.2 X10*3/uL (0.0-0.4); Eosinophils Percent Auto 2.9 % (0-4); Hematocrit 39.8 % (37.0-47.0); Hemoglobin 13.3 g/dl (12.0-16.0); Imm Gran Abs Auto 0.03 X10*3/uL (0.00-0.03); Imm Gran Pct Auto 0.5 % (0.0-0.4); Lymphocytes Absolute Auto 2.1 X10*3/uL (1.2-4.9); Lymphocytes Percent Auto 31.7 % (20-40); Mean Corpuscular HGB Conc 33.4 g/dl (31.0-35.0); Mean Corpuscular Hemoglobin 29.8 pg (27.0-33.0); Mean Corpuscular Volume 89.2 fL (80.0-98.0); Mean Platelet Volume 11.7 fL (9.4-12.3); Monocytes Absolute Auto 0.6 X10*3/uL (0.1-1.2); Monocytes Percent Auto 9.1 % (2-11); Neutrophils Absolute Auto 3.6 x10*3/uL (2.0-8.3); Neutrophils Percent Auto 54.9 % (45-73); Platelet Count 165 X10*3/uL (160-400); Red Blood Count 4.46 X10*6/uL (4.20-5.50); Red Cell Distribution Width 13.5 % (11.0-16.0); White Blood Count 6.6 X10*3/uL (4.8-10.8)
[2025-02-06 13:57] LABS: Alanine Aminotransferase 23 U/L (0-31); Albumin Level 4.6 g/dL (3.5-5.0); Alkaline Phosphatase 58 U/L (39-117); Anion Gap 11 (12-20); Aspartate Amino Transferase 26 U/L (5-31); Bilirubin Total 0.9 mg/dL (0.0-1.0); Blood Urea Nitrogen 9 mg/dL (9-16); C Reactive Protein 0.11 mg/dL (< or = 0.50); Carbon Dioxide 27 mmol/L (22-29); Chloride 104 mmol/L (96-108); Cholesterol 171 mg/dL (<200); Estimated Glomerular Filt Rate > 60; Glucose Random 85 mg/dL (60-115); HDL Cholesterol 66 mg/dL (>40); Iron 163 mcg/dL (30-160); LDL Cholesterol Calculated 90 mg/dL (<100); Percent Iron Saturation 59 % (15-50); Sodium 138 mmol/L (135-145); Total Iron Binding Capacity 277 mcg/dL (228-428); Total Protein 7.4 g/dL (6.5-8.0); Triglycerides 75 mg/dL (<150); Unsaturated Iron Binding 114 ug/dL
[2025-02-06 14:08] LABS: Estimated Average Glucose 97 mg/dL
[2025-02-06 14:16] LABS: Ferritin 150 ng/mL (10-250); Insulin 5 uU/mL (2-29); TSH reflex Free T4 0.29 uIU/mL (0.32-4.0); Vitamin D 25-OH Total 29.6 ng/mL (>30)
[2025-02-06 14:22] LABS: Folate 11.9 ng/mL (> or = 4.0); Vitamin B12 414 pg/mL (200-900)
[2025-02-06 15:06] LABS: Free T4 (Free Thyroxine) 1.33 ng/dL (0.71-1.85)
[2025-02-10 19:43] LABS: Zinc 79 mcg/dL (60-130)
[2025-02-11 14:33] LABS: Vitamin A 44 mcg/dL (38-98)
[2025-02-12 15:49] LABS: Vitamin B1 9 nmol/L (8-30)
== END 2025-02-06 12:13 | disposition home or self-care (01) ==
LOC: HO.LAB 12:12
PROVIDERS: PCP Nurse Practitioner Acute Care; Visit Provider Physician Assistant Surgical
DX: Z98.84 Bariatric surgery status (principal); E55.9 Vitamin D deficiency, unspecified; E50.9 Vitamin A deficiency, unspecified; E53.8 Deficiency of other specified B group vitamins; E03.9 Hypothyroidism, unspecified; I10 Essential (primary) hypertension
CPT/HCPCS: 36415; 80053; 80061; 82306; 82607; 82728; 82746; 83036; 83525; 83540; 84425; 84439; 84443; 84590; 84630; 85025; 86140

== ENCOUNTER 2025-04-24 14:30 | Outpatient (AMB) | payer OTHER, SELFPAY ==
--- OUTSIDE RECORDS SUMMARY | 2024-02-13 07:15 | XMS_ITS ---
Author Organization [facility] [address] Address [address] [place] [address] Care Team Providers Care Head Mixer Name Role Phone ArnoldStan Unavailable [phone] SUSAN FARNSWORTH Unavailable [phone] REASON FOR VISIT labs Encounters Encounter Location Date Provider Diagnosis [facility] [address] [place] [address] 02/13/2024 SUSAN FARNSWORTH Plan Of Treatment Next Appt Details Provider Name:SUSAN FARNSWORTH, 02/11/2026 01:00:00 PM, [address], [address], [place], [address], Progress Notes * OPAL STONERDOB: [birth year] (44 yo F)Acc No.[id number]:02/13/2024 CPE Patient: Lopez HUGHSTEPHEN OPAL Provider: Marty FARNSWORTH NP :1980 A ge:43 Y S ex:Female Date:02/13/2024 Address:[address] [place], [place] [id number] Subjective: * Chief Complaints: * 1 . Labs. * Medical History: Objective: * Vitals: Assessment: Plan: * Treatment: * Images: Billing Information: * Visit Code: * Procedure Codes: Care Plan Details* * Electronic signature of ANDER FARNSWORTH on 04/24/2025 at 02:57 PM EDT Sign off status: Pending * Provider: Marty FARNSWORTH NP Date: 02/13/2024 Generated for Lenai ng/Fadonnell/eTransmitting on: 0 04/24/2025 02:57 PM EDT
--- NOTE | 2025-04-24 09:51 | MHC.OFFVISWM ---
VS Expanded 04/24/25 10:42 Height 5 ft 2 in Weight 153 lb BMI 28.0 Intake Visit Reasons: (TV) PO LSG 08/14/23 Biomass Production Manager Required: No Allergies shellfish derived Adverse Reaction (Severe, Verified 08/21/23 11:05) Facial Swelling Sulfa (Sulfonamide Antibiotics) Adverse Reaction (Intermediate, Verified 08/21/23 11:05) Itching Medication List - Last Reconciled 04/24/25 by RIANNA Christopher levothyroxine 150 mcg PO .6 d chqmxuwyfkuy-fsl-qepc-FA-vit K 45 mg iron- 800 mcg-120 mcg (Bariatric Multivitamins) caps PO vitamin A palmitate 3,000 mcg PO DAILY HPI Comments Details: This?a?44?yo female who is s/p LSG without hiatal hernia repair on?08/14/2023. Presents for 1 year 9 month post op visit. Weight today is 153.7 pounds, with a BMI of 26.2. There has been a 55.9 pound weight loss,(initial weight 210.4 pounds) since starting the program on 05/18/2023 reflecting a 26.5 % total body weight loss and a weight loss of 32.5 pounds since surgery (operative weight 187 pounds) reflecting a 17.3 % TBWL since surgery. No complaints of nausea, emesis, abdominal pain or reflux. Reports infrequent but normal bowel movements every 1-2 days. She states she has been weight training and she thinks her weight gain is from that. She isn't following the plans. taking celebrate MVI. Training for bodybuilding competition. Now under the care of quality assurance director or recording studio set up worker. Feels great overall. User Support Analyst Supervisor is Dr Ladi Kinney and she has low TSH intentionally due to hx of thyroid ca and per pt, endocrine is aware of low levels. She got 1 year postop labs drawn today. Results are currently pending. She states that she underwent abdominoplasty, breast lift and reconstructive surgery performed in the [place] 07/29/2023. At that time, she was found to have umbilical and ventral hernia, both repaired with mesh at the time of the procedure. Currently training for half marathon. Present meal plan includes: 9 am 2 eggs w veg 1 pm Isopure shake 1 scoop 4 pm meal with 6 forks protein and 6 forks veg 6 pm 1/2 scoop isopure ? Exercise routine includes: xi 1 hr 5 days/wk jogging 20-25 min 5 days/wk weight training 1 hr 5 d/w cardio Active body building training PFSH Medical History Primary thyroid cancer Hypothyroidism Hypertension Surgical History S/P breast augmentation S/P abdominoplasty H/O total thyroidectomy History of surgical removal of ganglion cyst Hx of colonoscopy Hx of cholecystectomy Hx of section Family History Mother Sleep apnea Hypertension Hypothyroid Father Hypertension Social History Household Members: Family Housing: House Do you presently have visiting nurse or other home services: No Alcohol intake: current Alcohol intake frequency: holidays/special occasions only Patient Tobacco Use Status: Never used Tobacco service: No Telehealth Telehealth Telehealth Platform: Telephone Location of provider rendering services: practice address Location of patient: address on file Patient Identification confirmed using: Name, : Yes Telehealth method: voice only Patient verbally consented to treatment: Yes Patient verbally consented to billing insurance company: Yes Patient informed of any privacy concerns related to visit: Yes Minutes spent on Phone/Video with Pt.: 15 Assessment & Plan Assessment & Plan (1) S/P laparoscopic sleeve gastrectomy: Code(s): Z98.84 - Bariatric surgery status Category: Surgical Plan: Since patient is aggressively training for half marathon as well as body building competition, we will increase her protein content accordingly. Change meal plan: 9 am 2 eggs w veg 11 am isopure shake 1/2 scoop 1 pm Isopure shake 1 scoop 4 pm meal with 8 forks protein and 8 forks veg 6 pm 1/2 scoop isopure We will have her return to the office for her 2 year follow-up, check labs at that time. She certainly may call the office at any time with any questions or concerns
[2025-04-24 10:42] VITALS: BMI 28.0
--- OUTSIDE RECORDS SUMMARY | 2025-04-24 14:57 | XMS_ITS | Patient Health Record ---
Author Organization [facility] Address [address] [place] [address] Care Team Providers Care Bag Checker Name Role Phone Stan Barrett Unavailable SUSAN FARNSWORTH Unavailable [phone] Allergies Allergen (clinical drug ingredient) Drug/Non Drug Allergy documented on EMR Reaction Allergy Type Onset Date Status Shellfish (FN) Shellfish-derived Products Unknown Drug Allergy Active Substance with sulfonamide structure and antibacterial mechanism of action (substance) Sulfa Antibiotics Unknown Drug Allergy Active Results Component Value Reference Range Notes VITAMIN D 1,25 DIHYDROXY Reviewed date:02/10/2025 07:42:38 AM Interpretation: Performing Lab: Notes/Report: Vitamin D, 1, 25-Dihydroxy 59 20-79 pg/mL Vitamin D 1, 25 dihydroxy levels should be primarily used to assess Vitamin D status in patients with renal disease and hypercalcemia. Vitamin D 1,25-dihydroxy levels are generally less than 5 pg/mL in end stage renal disease patients. The preferred initial test for assessing Vitamin D status in the general population is Vitamin D 25-hydroxy (VITD). Test performed at [facility], [address] , [place] [address] Spring Mays MD, PhD - Manufacturing Production Manager URINALYSIS WITH REFLEX MICRO SCOPIC Reviewed date:02/06/2025 02:35:03 PM Interpretation: Performing Lab: Notes/Report: Specific Louise Urine 1.007 1.003-1.030 pH, Urine 8.0 5.0-8.0 pH Leukocytes, Urine Small Negative Nitrite, Urine Negative Negative Protein, Urine Negative <=Trace mg/dL Glucose, Urine Negative Negative mg/dL Ketones, Urine Negative Negative mg/dL Urobilinogen, Urine 0.2 0.2-1.0 mg/dL Bilirubin, Urine Negative Negative Blood, Urine Small Negative RBC, Urine 1.8 0-4 /HPF WBC, Urine 1.9 0-4 /HPF Squamous Epithelial, Urine 99 0-60 /LPF Bacteria, Urine Negative Negative /HPF Hyaline Casts, Urine 0.4 0-3 /LPF COMPREHENSIVE METABOLIC PANE L Reviewed date:02/06/2025 02:55:06 PM Interpretation: Performing Lab: Notes/Report: Sodium 136 133-145 mmol/L Potassium 4.6 3.5-5.5 mmol/L Chloride 103 96-110 mmol/L CO2 31 21-32 mmol/L Anion Gap 2 3-11 Glucose 83 70-100 mg/dL BUN 10 5-25 mg/dL Creatinine 0.62 0.50-1.10 mg/dL eGFR 113 >=60 mL/min/1.73m2 Calculati on based on the Chronic Kidney Disease Epidemiology Collaboration (CKD-EPI) equation refit without adjustment for race. BUN/Creatinine Ratio 16.1 Calcium 8.9 8.5-10.5 mg/dL AST (SGOT) 18 10-42 unit/L ALT (SGPT) 25 10-60 unit/L Alkaline Phosphatase 63 42-121 unit/L Total Protein 7.0 6.0-8.0 g/dL Albumin 4.0 3.2-5.0 g/dL Total Bilirubin 0.8 0.0-1.4 mg/dL THYROID STIMULATING HORMONE Reviewed date:02/07/2025 08:36:17 AM Interpretation: Performing Lab: Notes/Report: TSH 0.30 0.40-4.00 mcIU/mL LIPID PANEL WITH REFLEX TO D IRECT LDL Reviewed date:02/06/2025 02:55:06 PM Interpretation: Performing Lab: Notes/Report: Cholesterol 172 0-200 mg/dL Triglycerides 72 0-150 mg/dL HDL 78 >=40 mg/dL LDL Calculated 80 0-100 mg/dL VLDL Cholesterol Jose Juan 14.4 Non HDL Chol. (LDL+VLDL) 94 <145 mg/dL Chol/HDL Ratio 2.2 0.0-4.4 HEMOGLOBIN A1C Reviewed date:02/08/2025 01:11:46 PM Interpretation: Performing Lab: Notes/Report: Hemoglobin A1C 5.3 <6.5 % Mean Bld Glu Estim. 105 CBC WITH AUTO DIFFERENTIAL Reviewed date:02/06/2025 02:35:03 PM Interpretation: Performing Lab: Notes/Report: WBC 6.4 4.8-10.8 K/mcL RBC 4.30 3.80-4.80 M/mcL Hemoglobin 12.9 11.5-16.0 g/dL Hematocrit 39.9 35.0-47.0 % MCV 92.8 79.0-98.0 FL MCH 30.0 27.0-32.0 pcg MCHC 32.3 32.0-37.0 g/dL RDW 13.5 11.0-15.0 % Platelets 280 130-400 K/mcL MPV 10.2 7.0-11.0 FL NRBC 0.0 <1.0 % NRBC Absolute 0.00 <0.10 K/mcL Neutrophils Relative 55.2 Lymphocytes Relative 31.2 Monocytes Relative 9.3 Eosinophils Relative 3.1 Basophils Relative 0.9 Immature Granulocytes Relative 0.3 Neutrophils Absolute 3.54 1.50-7.00 K/mcL Lymphocytes Absolute 2.00 1.00-5.00 K/mcL Monocytes Absolute 0.60 0.20-1.00 K/mcL Eosinophils Absolute 0.20 0.00-0.50 K/mcL Basophils Absolute 0.06 0.00-0.20 K/mcL Immature Granulocytes Absolute 0.02 0.00-0.03 K/mcL Reason For Referral No Information Medications Medication SIG (Take, Route, Frequency, Duration) Notes Start Date End Date Status Candesartan Cilexetil-HCTZ 16-12.5 MG 1 tablet Orally Once a day; Duration: 90 days 03/06/2023 Not-Takin g Fluconazole 200 MG 1 tablet Orally once ; Duration: 1 days 03/19/2024 Not-Taking Pantoprazole Sodium 40 MG TAKE 1 TABLET BY MOUTH EVERY DAY FOR 90 DAYS; Duration: 90 Active Levothyroxine Sodium 150 MCG 1 capsule in the morning on an empty stomach Orally Once a day Active Candesartan Cilexetil-HCTZ 16-12.5 MG 1 tablet Orally Once a day Not-Taking Immunizations Vaccine Route Administration Date Status Comme nts influenza IM Intramuscular 05/27/2021 Administered Social History Tobacco Use: Social History Observation Description Date Details (start date - stop date) Never Smoker NA - NA Tobacco Use/Smoking Question Answer Notes Are you a nonsmoker Section Notes: She lives in the with her and three children. Denies smoking. Denies marijuana or illicit drugs. Occassional EtOH (socially) She lives in the with her and three children. Denies smoking. Denies marijuana or illicit drugs. Occassional EtOH (socially) Problems Problem Type SNOMED Code ICD Code Onset Dates Problem Status W/U Status Risk Notes Problem Vitamin D deficiency (75608372) Vitamin D deficiency, unspecified (E55.9) Active confirmed Problem Essential hypertension (09530809) Essential (primary) hypertension (I10) Active confirmed Problem Adult health examination (060086919) Encounter for general adult medical examination without abnormal findings (Z00.00) Active confirmed Problem Screening for malignant neoplasm of breast (244190305) Encounter for screening mammogram for malignant neoplasm of breast (Z12.31) Active confirmed Problem Acquired hypothyroidism (248273766) Acquired hypothyroidism (E03.9) Active confirmed Problem Hyperlipoproteinemia (5518642) 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) Active confirmed Problem Vitamin D deficiency (82204542) Vitamin D deficiency (E55.9) Active confirmed Problem Pain in right foot (845170653478387) Right foot pain (M79.671) Active confirmed Problem Fatty liver (507845762) Fatty liver (K76.0) Active confirmed Problem Prediabetes (915889261) Pre-diabetes (R73.03) Active confirmed Problem Obstructive sleep apnea syndrome (57756114) NANY (obstructive sleep apnea) (G47.33) Active confirmed Problem Thyroid disorder (65623509) Thyroid disorder (E07.9) Active confirmed Problem Paresthesia (40598411) Paresthesia (R20.2) Active confirmed Problem Mixed hyperlipidemia (666966059) Hyperlipemia, mixed (E78.2) Active confirmed Problem Primary hypertension (44537224) Primary hypertension (I10) Active confirmed Problem 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 Problem Avitaminosis D (33987439) Avitaminosis D (E55.9) Active confirmed Problem Abnormal metabolic state due to diabetes mellitus (453540792) Abnormal metabolic state due to diabetes mellitus (E11.9) Active confirmed Vital Signs Heart Rate 70 /min 02/10/2025 Blood pressure diastolic 78 mm Hg 02/10/2025 Oximetry 98 % 02/10/2025 Height 63 in 02/10/2025 Blood pressure systolic 124 mm Hg 02/10/2025 Weight 161 lbs 02/10/2025 BMI 28.52 kg/m2 02/10/2025 Encounters Encounter Location Date Provider Diagnosis [facility] [address] [address] 02/10/2025 SUSAN FARNSWORTH Annual physical exam Z00.00 ; Hurthle cell carcinoma of thyroid C73 ; Paresthesia R20.2 ; Hyperlipemia, mixed E78.2 ; Encounter for examination of blood pressure without abnormal findings Z01.30 and Acquired hypothyroidism E03.9 [facility] [address] [address] 10/09/2024 SUSAN FARNSWORTH [facility] [address] [address] 10/10/2024 SUSAN FARNSWORTH Assessments Encounter Date Diagnosis (ICD Code) Assessment Notes Treatment Notes Treatment Clinical Notes Section Notes 02/10/2025 Annual physical exam (ICD-10 - Z00.00) Acute Concerns/Problem List: 02/10/2025 _update mammography later this summer Labs reviewed Otherwise no acute complaints today Will see her annually Of note, some information is being carried forward from prior records for informational purposes only and is being cited so that efficiency, safety and quality of the patient's care is not compromised This note was prepared using voice recognition software and direct typing Please excuse inadvertent system developer associate manager or typing errors, or uncorrected word substitutions Although every attempt has been made by the provider to proofread this document, occasional misspellings and typographical errors may still be present Due to the previous pandemic, and the use of personal protective equipment (PPE) This may decrease voice recognition accuracy Inadvertent system developer associate manager errors may occur 02/10/2025 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) Acute Concerns/Problem List: 02/10/2025 _update mammography later this summer Labs reviewed Otherwise no acute complaints today Will see her annually Of note, some information is being carried forward from prior records for informational purposes only and is being cited so that efficiency, safety and quality of the patient's care is not compromised This note was prepared using voice recognition software and direct typing Please excuse inadvertent system developer associate manager or typing errors, or uncorrected word substitutions Although every attempt has been made by the provider to proofread this document, occasional misspellings and typographical errors may still be present Due to the previous pandemic, and the use of personal protective equipment (PPE) This may decrease voice recognition accuracy Inadvertent system developer associate manager errors may occur 02/10/2025 Paresthesia (ICD-10 - R20.2) Acute Concerns/Problem List: 02/10/2025 _update mammography later this summer Labs reviewed Otherwise no acute complaints today Will see her annually Of note, some information is being carried forward from prior records for informational purposes only and is being cited so that efficiency, safety and quality of the patient's care is not compromised This note was prepared using voice recognition software and direct typing Please excuse inadvertent system developer associate manager or typing errors, or uncorrected word substitutions Although every attempt has been made by the provider to proofread this document, occasional misspellings and typographical errors may still be present Due to the previous pandemic, and the use of personal protective equipment (PPE) This may decrease voice recognition accuracy Inadvertent system developer associate manager errors may occur 02/10/2025 Hyperlipemia, mixed (ICD-10 - E78.2) Acute Concerns/Problem List: 02/10/2025 _update mammography later summer Labs reviewed Otherwise no acute complaints today Will see her annually Of note, some information is being carried forward from prior records for informational purposes only and is being cited so that efficiency, safety and quality of the patient's care is not compromised This note was prepared using voice recognition software and direct typing Please excuse inadvertent system developer associate manager or typing errors, or uncorrected word substitutions Although every attempt has been made by the provider to proofread this document, occasional misspellings and typographical errors may still be present Due to the previous pandemic, and the use of personal protective equipment (PPE) This may decrease voice recognition accuracy Inadvertent system developer associate manager errors may occur 02/10/2025 Encounter for examination of blood pressure without abnormal findings (ICD-10 - Z01.30) Acute Concerns/Problem List: 02/10/2025 _update mammography later this summer Labs reviewed Otherwise no acute complaints today Will see her annually Of note, some information is being carried forward from prior records for informational purposes only and is being cited so that efficiency, safety and quality of the patient's care is not compromised This note was prepared using voice recognition software and direct typing Please excuse inadvertent system developer associate manager or typing errors, or uncorrected word substitutions Although every attempt has been made by the provider to proofread this document, occasional misspellings and typographical errors may still be present Due to the previous pandemic, and the use of personal protective equipment (PPE) This may decrease voice recognition accuracy Inadvertent system developer associate manager errors may occur 02/10/2025 Acquired hypothyroidism (ICD-10 - E03.9) Acute Concerns/Problem List: 02/10/2025 _update mammography later this summer Labs reviewed Otherwise no acute complaints today Will see her annually Of note, some information is being carried forward from prior records for informational purposes only and is being cited so that efficiency, safety and quality of the patient's care is not compromised This note was prepared using voice recognition software and direct typing Please excuse inadvertent system developer associate manager or typing errors, or uncorrected word substitutions Although every attempt has been made by the provider to proofread this document, occasional misspellings and typographical errors may still be present Due to the previous pandemic, and the use of personal protective equipment (PPE) This may decrease voice recognition accuracy Inadvertent system developer associate manager errors may occur Plan Of Treatment Pending Test Test Name Order Date Mammogram [...] LIPID PANEL, STANDARD 05/05/2021 LIPID PANEL, STANDARD 02/10/2025 LIPID PANEL, STANDARD 09/05/2022 COMPREHENSIVE METABOLIC PANEL 09/05/2022 COMPREHENSIVE METABOLIC PANEL 02/10/2025 COMPREHENSIVE METABOLIC PANEL 05/05/2021 MAGNESIUM 10/16/2022 PHOSPHATE ( PHOSPHORUS) 10/16/2022 CBC (INCLUDES DIFF/PLT) 05/05/2021 CBC (INCLUDES DIFF/PLT) 02/10/2025 CBC (INCLUDES DIFF/PLT) 09/05/2022 URINALYSIS, COMPLETE 02/10/2025 URINALYSIS, COMPLETE 09/05/2022 URINALYSIS, COMPLETE 03/17/2024 HEMOGLOBIN A1c 03/17/2024 HEMOGLOBIN A1c 02/10/2025 HEMOGLOBIN A1c 05/05/2021 INSULIN 05/05/2021 VITAMIN B12 10/16/2022 T4, FREE 05/05/2021 T4 (THYROXINE), TOTAL 02/10/2025 TSH 02/10/2025 TSH 09/05/2022 TSH 05/05/2021 TSH 03/17/2024 VITAMIN D,25-OH,TOTAL,IA 09/05/2022 VITAMIN D,25-OH,TOTAL,IA 02/10/2025 [employer], EIA, STOOL 05/05 [employer], UREA BREATH TEST VITAMIN D, 1,25 DIHYDROXY LC/MS/MS 03/17 COMPLETE URINALYSIS 03/06/2023 Next Appt Details Provider Name:SUSAN FARNSWORTH, 02/11/2026 01:00:00 PM, [address] [place] [address], [place], [address], Insurance Providers Payer Name Payer Address Payer Phone Subscriber Number Group Number Insured Name Patient Relationship to Insured Coverage Start Date Coverage End Date [facility] [address] [place] [address] [phone] [id number] [employer] [employer] Self - patient is the insured 2 Medical (General) History Medical History History ICD Code Cancer Gallbladder disease Liver disease Thyroid disease Surgical History Surgery Date(Month/Year) thyroidectomy 2020
--- OUTSIDE RECORDS SUMMARY | 2025-04-24 14:57 | XMS_ITS | Clinical Summary ---
Author Organization [facility] Address [address] [place] [address], [place] [address] Care Team Providers Care All Source Analyst Name Role Phone Payton Martinez NP Primary Care Provider [phone] Allergies Active Allergy Reactions Criticality Noted Date [...] of 2 - PCV) 2000 Influenza Vaccine (#1) 2025 05/27/2021 Insurance [facility] Care Teams All Source Analyst Relationship Specialty Start Date End Date Payton Martinez NP [address] [place] [address] PCP - General Nurse Practitioner 10/19/22
--- OUTSIDE RECORDS SUMMARY | 2025-04-24 14:58 | XMS_ITS | Clinical Summary ---
Author Organization [address] Address [address] [place] [phone] Phone Care Team Providers Care Survey Data Technician Name Role Phone Payton Martinez NP Primary Care Provider [phone] Surgical History Surgery Date Site/Laterality Comments SECTION PROCEDURE: [place] DELIVERY ONLY CHOLECYSTECTOMY 2012 PROCEDURE: [place] LAPAROSCOPY SURG CHOLECYSTECTOMY; COMMENT: [facility] [...] Done Comments Breast Cancer Screening 1981 Hepatitis A Vaccines (1 of 2 - Risk 2-dose series) 2000 Hepatitis B Vaccines (1 of 3 - 19+ 3-dose series) 2000 Pneumococcal Vaccine: Pediatrics (0 to 5 Years) and At-Risk Patients (6 to 49 Years) (1 of 2 - PCV) 2000 Cervical Cancer Screening: Pap Smear 2002 HIV Screening 07/19/2022 Hepatitis C Screening 07/19/2022 Social Influencers of Health Screening 07/19/2022 Depression Screening 08/20/2024 COVID-19 Vaccine ( season) 2025 06/20/2021, 12/10/2020, 11/17/2020, Additional history exists Influenza Vaccine (#1) 2025 05/27/2021 Hypertension/CHF/CAD Annual BMP Blood Test 02/06/2026 02/06/2025 DTaP,Tdap,and Td Vaccines (2 - Td or Tdap) 09/27/2027 09/27/2017 Cholesterol Screening (Lipid Panel) 02/06/2030 02/06/2025 HIB Vaccines Aged Out No longer eligi [...] age to complete this topic Meningococcal B Vaccine Aged Out No l onger eligible based on patient's age to complete this topic RSV Immunization Patients Under 20 months Aged Out No longer eligible based on patient's age to complete this topic Varicella Vaccines Aged Out No longer eligible based on patient's age to complete this topic Procedures Procedure Name Priority Date/Time Associated Diagnosis Comments URINALYSIS WITH REFLEX MICROSCOPIC Routine 02/06/2025 1:22 PM EDT Hyperlipemia Hypothyroidism Routine medical exam Vitamin D insufficiency CBC WITH AUTO DIFFERENTIAL Routine 02/06/2025 1:22 PM EDT Hyperlipemia Hypothyroidism Routine medical exam Vitamin D insufficiency HEMOGLOBIN A1C Routine 02/06/2025 1:22 PM EDT Hyperlipemia Hypothyroidism Routine medical exam Vitamin D insufficiency THYROID STIMULATING HORMONE Routine 02/06/2025 1:22 PM EDT Hyperlipemia Hypothyroidism Routine medical exam Vitamin D insufficiency URINALYSIS WITH REFLEX MICROSCOPIC Routine 02/06/2025 1:22 PM EDT Hyperlipemia Hypothyroidism Routine medical exam Vitamin D insufficiency VITAMIN D 1,25 DIHYDROXY Routine 02/06/2025 1:22 PM EDT Hyperlipemia Hypothyroidism Routine medical exam Vitamin D insufficiency COMPREHENSIVE METABOLIC PANEL Routine 02/06/2025 1:22 PM EDT Hyperlipemia Hypothyroidism Routine medical exam Vitamin D insufficiency CBC AND DIFFERENTIAL Routine 02/06/2025 1:22 PM EDT Hyperlipemia Hypothyroidism Routine medical exam Vitamin D insufficiency LIPID PANEL WITH REFLEX TO DIRECT LDL Routine 02/06/2025 1:22 PM EDT Hyperlipemia Hypothyroidism Routine medical exam Vitamin D insufficiency from Last 3 Months Results * (ABNORMAL) Urinalysis with reflex microscopic (02/06/2025 1:22 PM EDT) Specific [place] Urine 1.007 1.003 - 1.030 LAB URINALYSIS - AUTOMATED METHOD 02/06/2025 2:08 PM EDT [facility] pH, Urine 8.0 5.0 - 8.0 pH LAB URINALYSIS - AUTOMATED METHOD 02/06/2025 2:08 PM T [facility] Leukocytes, Urine Small(A) Negative LAB URINALYSIS - AUTOMATED METHOD 02/06/2025 2:08 PM T [facility] Nitrite, Urine Negative Negative LAB URINALYSIS - AUTOMATED METHOD 02/06/2025 2:08 PM T [facility] Protein, Urine Negative <=Trace mg/dL LAB URINALYSIS - AUTOMATED METHOD 02/06/2025 2:08 PM [facility] Glucose, Urine Negative Negative mg/dL LAB URINALYSIS - AUTOMATED METHOD 02/06/2025 2:08 PM [facility] Ketones, Urine Negative Negative mg/dL LAB URINALYSIS - AUTOMATED METHOD 02/06/2025 2:08 PM [facility] Urobilinogen, Urine 0.2 0.2 - 1.0 mg/dL LAB URINALYSIS - AUTOMATED METHOD 02/06/2025 2:08 PM [facility] Bilirubin, Urine Negative Negative LAB URINALYSIS - AUTOMATED METHOD 02/06/2025 2:08 PM [facility] Blood, Urine Small(A) Negative LAB URINALYSIS - AUTOMATED METHOD 02/06/2025 2:08 PM [facility] RBC, Urine 1.8 0 - 4 /HPF LAB URINALYSIS - AUTOMATED METHOD 02/06/2025 2:08 PM [facility] WBC, Urine 1.9 0 - 4 /HPF LAB URINALYSIS - AUTOMATED METHOD 02/06/2025 2:08 PM [facility] Squamous Epithelial, Urine 99(H) 0 - 60 /LPF LAB URINALYSIS - AUTOMATED METHOD 02/06/2025 2:08 PM [facility] Bacteria, Urine Negative Negative /HPF LAB URINALYSIS - AUTOMATED METHOD 02/06/2025 2:08 PM [facility] Hyaline Casts, Urine 0.4 0 - 3 /LPF LAB URINALYSIS - AUTOMATED METHOD 02/06/2025 2:08 PM [facility] Urine Urine specimen obtained by clean catch procedure / Unknown Non-blood Collection / Unknown 02/06/2025 1:22 PM EDT 02/06/2025 1:40 PM EDT us Payton Martinez SADDLE STITCHER LAB URINE ORDERABLES Final Re sult [facility] [address] [place] [address], [place] [phone] * Lipid panel with reflex to direct LDL (02/06/2025 1:22 PM EDT) Cholesterol 172 0 - 200 mg/dL LAB CHEMISTRY METHOD 02/06/2025 2:41 PM EDT [facility] Triglycerides 72 0 - 150 mg/dL LAB CHEMISTRY METHOD 02/06/2025 2:41 PM EDT [facility] HDL 78 >=40 mg/dL LAB CHEMISTRY METHOD 02/06/2025 2:41 PM EDT [facility] LDL Calculated 80 0 - 100 mg/dL LAB CHEMISTRY METHOD 02/06/2025 2:41 PM EDT [facility] VLDL Cholesterol Jose Juan 14.4 mg/dL LAB CHEMISTRY METHOD 02/06/2025 2:41 PM EDT [facility] Non HDL Chol. (LDL+VLDL) 94 <145 mg/dL LAB CHEMISTRY METHOD 02/06/2025 2:41 PM EDT [facility] Chol/HDL Ratio 2.2 0.0 - 4.4 LAB CHEMISTRY METHOD 02/06/2025 2:41 PM EDT [facility] Blood Venous blood specimen / Unknown Venipuncture / Unknown 02/06/2025 1:22 PM EDT 02/06/2025 1:40 PM EDT us Payton Martinez SADDLE STITCHER LAB BLOOD ORDERABLES Final Re sult [facility] [address] [place] [address], [place] [phone] * CBC auto differential (02/06/2025 1:22 PM EDT) WBC 6.4 4.8 - 10.8 K/mcL LAB HEMETOLOGY METHOD 02/06/2025 1:45 PM EDT [facility] RBC 4.30 3.80 - 4.80 M/mcL LAB HEMETOLOGY METHOD 02/06/2025 1:45 [facility] Hemoglobin 12.9 11.5 - 16.0 g/dL LAB HEMETOLOGY METHOD 02/06/2025 1:45 PM EDT [facility] Hematocrit 39.9 35.0 - 47.0 % LAB HEMETOLOGY METHOD 02/06/2025 1:45 PM [facility] MCV 92.8 79.0 - 98.0 FL LAB HEMETOLOGY METHOD 02/06/2025 1:45 PM [facility] MCH 30.0 27.0 - 32.0 pcg LAB HEMETOLOGY METHOD 02/06/2025 1:45 PM [facility] MCHC 32.3 32.0 - 37.0 g/dL LAB HEMETOLOGY METHOD 02/06/2025 1:45 PM [facility] RDW 13.5 11.0 - 15.0 % LAB HEMETOLOGY METHOD 02/06/2025 1:45 PM [facility] Platelets 280 130 - 400 K/mcL LAB HEMETOLOGY METHOD 02/06/2025 1:45 PM [facility] MPV 10.2 7.0 - 11.0 FL LAB HEMETOLOGY METHOD 02/06/2025 1:45 PM [facility] NRBC 0.0 <1.0 % LAB HEMETOLOGY METHOD 02/06/2025 1:45 PM [facility] NRBC Absolute 0.00 <0.10 K/mcL LAB HEMETOLOGY METHOD 02/06/2025 1:45 PM [facility] Neutrophils Relative 55.2 % LAB HEMETOLOGY METHOD 02/06/2025 1:45 PM EDT [facility] Lymphocytes Relative 31.2 % LAB HEMETOLOGY METHOD 02/06/2025 1:45 PM [facility] Monocytes Relative 9.3 % LAB HEMETOLOGY METHOD 02/06/2025 1:45 PM [facility] Eosinophils Relative 3.1 % LAB HEMETOLOGY METHOD 02/06/2025 1:45 PM [facility] Basophils Relative 0.9 % LAB HEMETOLOGY METHOD 02/06/2025 1:45 PM [facility] Immature Granulocytes Relative 0.3 % LAB HEMETOLOGY METHOD 02/06/2025 1:45 PM [facility] Neutrophils Absolute 3.54 1.50 - 7.00 K/mcL LAB HEMETOLOGY METHOD 02/06/2025 1:45 PM [facility] Lymphocytes Absolute 2.00 1.00 - 5.00 K/mcL LAB HEMETOLOGY METHOD 02/06/2025 1:45 PM [facility] Monocytes Absolute 0.60 0.20 - 1.00 K/mcL LAB HEMETOLOGY METHOD 02/06/2025 1:45 PM [facility] Eosinophils Absolute 0.20 0.00 - 0.50 K/mcL LAB HEMETOLOGY METHOD 02/06/2025 1:45 PM [facility] Basophils Absolute 0.06 0.00 - 0.20 K/mcL LAB HEMETOLOGY METHOD 02/06/2025 1:45 PM [facility] Immature Granulocytes Absolute 0.02 0.00 - 0.03 K/mcL LAB HEMETOLOGY METHOD 02/06/2025 1:45 PM [facility] Blood Venous blood specimen / Unknown Venipuncture / Unknown 02/06/2025 1:22 PM EDT 02/06/2025 1:40 PM EDT Payton Martinez NP LAB BLOOD ORDERABLES Final Re sult Performing Organization Address City/[facility]/ZIP Co de Phone Number [facility] [address] [place] [address], [place] [phone] * Vitamin D 1,25 dihydroxy (02/06/2025 1:22 PM EDT) Pathologist [facility] [place] Vitamin D, 1, 25-Dihydroxy 59 20 - 79 pg/mL 02/09/2025 6:49 PM EDT [facility] Comment: Vitamin D 1, 25 dihydroxy levels should be primarily used to assess Vitamin D status in patients with renal disease and hypercalcemia. Vitamin D 1,25-dihydroxy levels are generally less than 5 pg/mL in end stage renal disease patients. The preferred initial test for assessing Vitamin D status in the general population is Vitamin D 25-hydroxy (VITD). Test performed at [facility], [address] [place] [address] Spring Mays MD, PhD - Textile Slitting Machine Operator Blood Venous blood specimen / Unknown Venipuncture / Unknown 02/06/2025 1:22 PM EDT 02/06/2025 1:40 PM EDT Payton Martinez NP LAB BLOOD ORDERABLES Final Re sult Performing Organization Address City/[facility]/ZIP Co de Phone Number [facility] [address] [place] [address] * (ABNORMAL) Thyroid stimulating hormone (02/06/2025 1:22 PM EDT) TSH 0.30(L) 0.40 - 4.00 mcIU/mL LAB CHEMISTRY METHOD 02/06/2025 4:50 PM EDT [facility] Blood Venous blood specimen / Unknown Venipuncture / Unknown 02/06/2025 1:22 PM EDT 02/06/2025 1:40 PM EDT Payton Martinez SADDLE STITCHER LAB BLOOD ORDERABLES Final Re sult [facility] [address] [place] [address], [place] [phone] * Hemoglobin A1c (02/06/2025 1:22 PM EDT) Pathologist [facility] [place] Hemoglobin A1C 5.3 <6.5 % LAB CHEMISTRY METHOD 02/08/2025 1:02 PM EDT [facility] Mean Bld Glu Estim. 105 mg/dL LAB CHEMISTRY METHOD 02/08/2025 1:02 PM EDT [facility] Blood Venous blood specimen / Unknown Venipuncture / Unknown 02/06/2025 1:22 PM EDT 02/06/2025 1:40 PM EDT Payton Martinez SADDLE STITCHER LAB BLOOD ORDERABLES Final Re sult Performing Organization Address City/[facility]/ZIP Co de Phone Number [facility] [address] [place] [address], [place] [phone] * (ABNORMAL) Comprehensive metabolic panel (02/06/2025 1:22 PM EDT) Pathologist [facility] [place] Sodium 136 133 - 145 mmol/L LAB CHEMISTRY METHOD 02/06/2025 2:43 PM EDT [facility] Potassium 4.6 3.5 - 5.5 mmol/L LAB CHEMISTRY METHOD 02/06/2025 2:43 PM EDT [facility] Chloride 103 96 - 110 mmol/L LAB CHEMISTRY METHOD 02/06/2025 2:43 PM EDT [facility] CO2 31 21 - 32 mmol/L LAB CHEMISTRY METHOD 02/06/2025 2:43 PM EDT [facility] Anion Gap 2(L) 3 - 11 LAB CHEMISTRY METHOD 02/06/2025 2:43 PM [facility] Glucose 83 70 - 100 mg/dL LAB CHEMISTRY METHOD 02/06/2025 2:43 PM [facility] BUN 10 5 - 25 mg/dL LAB CHEMISTRY METHOD 02/06/2025 2:43 PM [facility] Creatinine 0.62 0.50 - 1.10 mg/dL LAB CHEMISTRY METHOD 02/06/2025 2:43 PM [facility] eGFR 113 >=60 mL/min/1. 73m2 LAB CHEMISTRY METHOD 02/06/2025 2:43 PM [facility] Comment:Calculation based on the Chronic Kidney Disease Epidemiology Collaboration (CKD-EPI) equation refit without adjustment for race. BUN/Creatinine Ratio 16.1 LAB CHEMISTRY METHOD 02/06/2025 2:43 PM [facility] Calcium 8.9 8.5 - 10.5 mg/dL LAB CHEMISTRY METHOD 02/06/2025 2:43 PM [facility] AST (SGOT) 18 10 - 42 unit/L LAB CHEMISTRY METHOD 02/06/2025 2:43 PM [facility] ALT (SGPT) 25 10 - 60 unit/L LAB CHEMISTRY METHOD 02/06/2025 2:43 PM [facility] Alkaline Phosphatase 63 42 - 121 unit/L LAB CHEMISTRY METHOD 02/06/2025 2:43 PM [facility] Total Protein 7.0 6.0 - 8.0 g/dL LAB CHEMISTRY METHOD 02/06/2025 2:43 PM [facility] Albumin 4.0 3.2 - 5.0 g/dL LAB CHEMISTRY METHOD 02/06/2025 2:43 PM [facility] Total Bilirubin 0.8 0.0 - 1.4 mg/dL LAB CHEMISTRY METHOD 02/06/2025 2:43 PM [facility] Blood Venous blood specimen / Unknown Venipuncture / Unknown 02/06/2025 1:22 PM EDT 02/06/2025 1:40 PM EDT us Payton Martinez NP LAB BLOOD ORDERABLES Final Re s[facility] [address] [place] [address], from Last 3 Months Insurance [facility] Care Teams Survey Data Technician Relationship Specialty Start Date End Date Payton Martinez NP PCP - General 06/23/21
== END 2025-04-24 15:04 | disposition home or self-care (01) ==
LOC: HO.HBS 14:55
PROVIDERS: PCP Nurse Practitioner Acute Care; Visit Provider Physician Assistant Surgical
DX: E66.3 Overweight (principal); Z68.28 Body mass index [BMI] 28.0-28.9, adult; Z90.3 Acquired absence of stomach [part of]; Z98.84 Bariatric surgery status
CPT/HCPCS: 98013

== ENCOUNTER → 2025-04-24 14:30 | Outpatient (BNVA) | payer OTHER, SELFPAY | PROVIDERS: PCP Nurse Practitioner Acute Care; Visit Provider Physician Assistant Surgical | DX: E66.3 Overweight (principal); Z68.28 Body mass index [BMI] 28.0-28.9, adult; Z98.84 Bariatric surgery status; Z13.89 Encounter for screening for other disorder ==